=== PATIENT | female | born 1930 | race Caucasian/White ===

== ENCOUNTER 2021-07-09 08:47 | Outpatient (CLI) | payer MEDICARE, OTHER | END 2021-07-09 08:48 | disposition critical access hospital (66) | LOC: EMS 08:47 | DX: R41.0 Disorientation, unspecified (principal); R53.1 Weakness; S01.81XA Laceration without foreign body of other part of head, initial encounter; M54.2 Cervicalgia; W19.XXXA Unspecified fall, initial encounter; Y92.099 Unspecified place in other non-institutional residence as the place of occurrence of the external cause | CPT/HCPCS: A0425; A0429 ==

== ENCOUNTER 2021-07-09 09:07 | Emergency (ER) | payer MEDICARE, OTHER ==
[2021-07-09] MEDS ORDERED: SODIUM CHLORIDE 0.9% 1,000 ML IV STA (10:19)
--- NOTE | 2021-07-09 10:19 | ED Physician Documentation ---
PD HPI ALTERED MENTAL STATUS - Stated complaint Stated Complaint: DEMENTIA/CONFUSION - Chief complaint Chief Complaint: Neuro - History obtained from History obtained from: Patient, Family - History of Present Illness Timing - onset: How many days ago (2) Timing - duration: Days (2) Timing - details: Gradual onset, Still present Quality / character: Confused Associated symptoms: Urinary sx (frequency). No: Fever, Headache, Stiff neck, Dyspnea, Cough, NVD, General weakness, Focal weakness, Seizure activity, Syncope Contributing factors: Known dementia. 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 She is brought here today by her daughter from [facility] with increasing confusion. The patient does have known dementia and she lives in assisted living at [facility]. She has been taking some Lasix for lower extremity edema Review of Systems Constitutional: denies: Fever Eyes: denies: Decreased vision Ears: denies: Ear pain Nose: denies: Congestion Throat: denies: Sore throat Cardiac: denies: Chest pain / pressure, Palpitations Respiratory: denies: Dyspnea, Cough GI: denies: Abdominal Pain, Nausea, Vomiting, Constipation, Diarrhea : reports: Frequency. denies: Dysuria Skin: denies: Rash Musculoskeletal: denies: Neck pain, Back pain, Extremity pain Neurologic: reports: Confused. 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 : None Psych: None Musculoskeletal: None Derm: None Other Past Medical History: venous insufficiency - Present Medications Home Medications: Ambulatory Orders Medication Instructions Recorded Confirmed Furosemide [Lasix] 20 mg PO DAILY 07/09/21 07/09/21 Lisinopril [Zestril] 20 mg PO DAILY 07/09/21 07/09/21 Multivitamin 1 each PO DAILY 07/09/21 07/09/21 - Allergies Allergies/Adverse Reactions: Allergies Allergy/AdvReac Type Severity Reaction Status Date / Time No Known Drug Allergies Allergy Verified 07/09/21 09:15 - Social History Does the pt smoke?: No Smoking Status: Never smoker Does the pt drink ETOH?: No Does the pt have substance abuse?: No - Immunizations Immunizations are current?: Yes PD ED PE NORMAL - Vitals Vital signs reviewed: Yes (hypertensive with wide pulse pressure) - General General: No acute distress, Well developed/nourished, Other (alert smile and confused) - HEENT HEENT: Atraumatic, PERRL, EOMI - Neck Neck: Supple, no meningeal sign, No bony TTP - Cardiac Cardiac: RRR, Other (2/6 holosystolic murmer at LSB with loud second sound) - Respiratory Respiratory: No respiratory distress, Clear bilaterally - Abdomen Abdomen: Normal bowel sounds, Soft, Non tender, Non distended, No organomegaly - Back Back: No CVA TTP, No spinal TTP - Derm Derm: Normal color, Warm and dry, No rash - Extremities Extremities: No deformity, Other (pitting edema bilaterally ) - Neuro Neuro: magnetic resonance imaging director 2-12 intact, No motor deficit, No sensory deficit, Normal speech Eye Opening: Spontaneous Motor: Obeys Commands Verbal: Confused GCS Score: 14 - Psych Psych: Normal mood, Normal affect Results - Vitals Vitals: Vital Signs - 24 hr 07/09/21 07/09/21 07/09/21 09:15 10:00 11:00 Temperature 36.7 C Heart Rate 54 L 54 L 59 L Respiratory 19 18 16 Rate Blood Pressure 164/52 H 188/52 H 161/59 H O2 Saturation 98 100 100 07/09/21 11:50 Temperature 36.1 C L Heart Rate 49 L Respiratory 16 Rate Blood Pressure 157/62 H O2 Saturation 97 Oxygen O2 Source Room air - Labs Labs: Laboratory Tests 07/09/21 07/09/21 07/09/21 09:57 10:30 10:30 WBC 4.6 L RBC 3.78 L Hgb 12.0 Hct 35.6 L MCV 94.2 MCH 31.7 H MCHC 33.7 RDW 12.4 Plt Count 141 MPV 10.1 Neut # (Auto) 2.9 Lymph # (Auto) 1.1 L [place] # (Auto) 0.4 Eos # (Auto) 0.3 Baso # (Auto) 0.0 Absolute Nucleated RBC 0.00 Nucleated RBC % 0.0 Sodium 137 Potassium 4.2 Chloride 101 Carbon Dioxide 27 Anion Gap 9.0 BUN 44 H Creatinine 1.3 H Estimated GFR (MDRD) 39 L Glucose 115 H Calcium 9.7 Total Bilirubin 0.7 AST 18 ALT 16 Alkaline Phosphatase 40 L B-Natriuretic Peptide Total Protein 6.9 Albumin 4.3 Globulin 2.6 Albumin/Globulin Ratio 1.7 Lipase 52 H Urine Color YELLOW Urine Clarity CLEAR Urine pH 6.0 Ur Specific [place] 1.020 Urine Protein NEGATIVE Urine Glucose (UA) NEGATIVE Urine Ketones NEGATIVE Urine Occult Blood NEGATIVE Urine Nitrite NEGATIVE Urine Bilirubin NEGATIVE Urine Urobilinogen 0.2 (NORMAL) Ur Leukocyte Esterase SMALL H Urine RBC 0-5 Urine WBC 4-5 Ur Squamous Epith Cells FEW Squamous Amorphous Sediment Rare Urine Bacteria Rare Ur Microscopic Review INDICATED Urine Culture Comments INDICATED 07/09/21 10:30 WBC RBC Hgb Hct MCV MCH MCHC RDW Plt Count MPV Neut # (Auto) Lymph # (Auto) [place] # (Auto) Eos # (Auto) Baso # (Auto) Absolute Nucleated RBC Nucleated RBC % Sodium Potassium Chloride Carbon Dioxide Anion Gap BUN Creatinine Estimated GFR (MDRD) Glucose Calcium Total Bilirubin AST ALT Alkaline Phosphatase B-Natriuretic Peptide 124 H Total Protein Albumin Globulin Albumin/Globulin Ratio Lipase Urine Color Urine Clarity Urine pH Ur Specific [place] Urine Protein Urine Glucose (UA) Urine Ketones Urine Occult Blood Urine Nitrite Urine Bilirubin Urine Urobilinogen Ur Leukocyte Esterase Urine RBC Urine WBC Ur Squamous Epith Cells Amorphous Sediment Urine Bacteria Ur Microscopic Review Urine Culture Comments Procedures - IVC sono (time) 1015 Bedside IVC sono: IVC measures (cm) (1.01), IVC collapsed c insp (cm) (complete), Dehydration (est 1-2 liter deficit) PD MEDICAL DECISION MAKING - ED course Complexity details: reviewed results, re-evaluated patient, considered differential, d/w patient, d/w family ED course: 89-year-old female who has not had to go to the hospital since the of her child is on some medication for fluid retention in her ankles. She has been taking furosemide and she is now feeling weak and confused. She otherwise appears well and we found on interrogation the inferior vena cava that she was dehydrated. She was administered intravenous saline. I have asked the patient to decrease her use of the furosemide for the next 2 days and then to resume. We found no other abnormalities on evaluation of the patient.I suspect her peripheral swelling is a form of fluid retention or dependent edema and not related to congestive heart failure. Departure - Departure Disposition: 01 Home, Self Care Clinical Impression: Dehydration determined by examination Condition: Stable Instructions: ED Dehydration Follow-Up: Salvador Wiley MD [Primary Care Provider] - Comments: Rosa Maria, today it looks like the Lasix you have been taking has made you a bit dehydrated. We have given you a bit of extra fluid today and our recommendation is to discontinue the use of your furosemide for 2 days. Stay hydrated.The expectation is that over the next several days Rosa Maria will have improvement in her cognitive ability to her normal baseline. Discharge Date/Time: 07/09/21 12:17
[2021-07-09 10:30] LABS: BILIRUBIN,URINE NEGATIVE (NEGATIVE); GLUCOSE, URINE (UA) NEGATIVE (NEGATIVE); KETONES,URINE (UA) NEGATIVE (NEGATIVE); LEUKOCYTE ESTERASE, URINE SMALL (NEGATIVE); NITRITE,URINE NEGATIVE (NEGATIVE); OCCULT BLOOD,URINE NEGATIVE (NEGATIVE); PROTEIN,URINE NEGATIVE (NEGATIVE); UROBILINOGEN,URINE 0.2 (NORMAL) E.U./dL (NORMAL)
[2021-07-09 10:40] LABS: CLARITY,URINE CLEAR (CLEAR)
[2021-07-09 10:41] LABS: BASOPHILS % (AUTO) 0.7 %; EOSINOPHILS # (AUTO) 0.3 10^3/uL (0.0-0.7); EOSINOPHILS % (AUTO) 5.7 %; HCT - HEMATOCRIT 35.6 % (37.0-47.0); LYMPHOCYTES # (AUTO) 1.1 10^3/uL (1.5-3.5); LYMPHOCYTES % (AUTO) 22.8 %; MEAN CORPUSCULAR HEMOGLOBIN 31.7 pg (27.0-31.0); MEAN CORPUSCULAR HGB CONC 33.7 g/dL (32.0-36.0); MEAN CORPUSCULAR VOLUME 94.2 fL (81.0-99.0); MEAN PLATELET VOLUME 10.1 fL (7.9-10.8); MONOCYTES # (AUTO) 0.4 10^3/uL (0.0-1.0); MONOCYTES % (AUTO) 7.6 %; NEUTROPHILS # (AUTO) 2.9 10^3/uL (1.5-6.6); PLT - PLATELET COUNT 141 10^3/uL (130-450); RED BLOOD COUNT 3.78 10^6/uL (4.20-5.40); RED CELL DISTRIBUTION WIDTH 12.4 % (12.0-15.0); WHITE BLOOD COUNT 4.6 x10^3/uL (4.8-10.8)
[2021-07-09 10:41] LABS: AMORPHOUS SEDIMENT,UR Rare /LPF; BACTERIA,URINE Rare /HPF (None Seen); RBC,URINE 0-5 /HPF (0-5); SQUAMOUS EPITHELIAL CELL,UR FEW Squamous (<= Few)
[2021-07-09 10:54] LABS: ALBUMIN 4.3 g/dL (3.2-5.5); ALBUMIN/GLOBULIN RATIO 1.7 (1.0-2.2); BILIRUBIN,TOTAL 0.7 mg/dL (0.2-1.0); CALCIUM 9.7 mg/dL (8.5-10.3); CREATININE 1.3 mg/dL (0.4-1.0); POTASSIUM 4.2 mmol/L (3.5-5.0); TOTAL PROTEIN 6.9 g/dL (6.7-8.2)
[2021-07-09 11:53] VITALS: BP 157/62
== END 2021-07-09 12:17 | disposition home or self-care (01) ==
LOC: EDUNIT# → ED 09:07
DX: E86.0 Dehydration (principal)
CPT/HCPCS: 36415; 80053; 81001; 81003; 83690; 83880; 85025; 87086; 87181; 96360; 99282

== ENCOUNTER 2021-07-09 17:40 | Outpatient (CLI) | payer MEDICARE, OTHER | END 2021-07-09 17:41 | disposition critical access hospital (66) | LOC: EMS 17:40 | DX: S01.81XA Laceration without foreign body of other part of head, initial encounter (principal); M54.2 Cervicalgia; W19.XXXA Unspecified fall, initial encounter; Y92.099 Unspecified place in other non-institutional residence as the place of occurrence of the external cause | CPT/HCPCS: A0425; A0429 ==

== ENCOUNTER 2021-07-09 17:58 | Emergency (ER) | payer MEDICARE, OTHER ==
[2021-07-09] MEDS ORDERED: LIDOCAINE 1%-EPI 1:100000 20 ML MDV SUBQ STA (18:05)
[2021-07-09] MEDS ORDERED: TETANUS/DIPHTHERIA/PERTUSSIS 0.5 ML SYRINGE IM ONE (18:05)
--- NOTE | 2021-07-09 18:09 | ED Physician Documentation ---
History of Present Illness - Stated complaint Stated Complaint: GLF/LACERATION - History obtained from History obtained from: Patient, EMS - Additonal information Additional information: 89-year-old woman with dementia seen earlier in the day. She was acting more confused than normal. Sent home after labs and IV fluids. Fell and hit the back of her head and has a cut on the back of her head and brought back by ambulance. Patient quite demented and unable to give specific history. No clear loss of consciousness. 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 : None Psych: None Musculoskeletal: None Derm: None - Present Medications Home Medications: Ambulatory Orders Medication Instructions Recorded Confirmed Furosemide [Lasix] 20 mg PO DAILY 07/09/21 07/09/21 Lisinopril [Zestril] 20 mg PO DAILY 07/09/21 07/09/21 Multivitamin 1 each PO DAILY 07/09/21 07/09/21 - Allergies Allergies/Adverse Reactions: Allergies Allergy/AdvReac Type Severity Reaction Status Date / Time No Known Drug Allergies Allergy Verified 07/09/21 18:08 - Social History Does the pt smoke?: No Smoking Status: Never smoker Does the pt drink ETOH?: No Does the pt have substance abuse?: No - Immunizations Immunizations are current?: Yes PD ED PE NORMAL - Vitals Vital signs reviewed: Yes - General General: No acute distress, Other (Alert and oriented to person only) - HEENT HEENT: PERRL, EOMI, Other (4 cm horizontal occipital laceration) - Neck Neck: No bony TTP - Neuro Eye Opening: Spontaneous Motor: Obeys Commands Verbal: Confused GCS Score: 14 Results - Vitals Vitals: Vital Signs - 24 hr 07/09/21 18:08 Temperature 36.7 C Heart Rate 53 L Respiratory 16 Rate Blood Pressure 148/50 H O2 Saturation 96 Oxygen O2 Source Room air - Rads (name of study) CT of the head and cervical spine are unremarkable Radiology: EMP read contemporaneously Procedures - Laceration (location) Occipital scalp Length in cm: 4 Wound type: Into subcut fat Neurovascular status: Sensory intact, Motor intact Tendon involvement: Tendon intact Anesthesia: Lidocaine 1% with epi Wound preparation: Irrigated copiously NS Skin layer closure: Vincenzo (7) Other: Patient tolerated well, No complications, Neurovascular intact, Tetanus booster given Departure - Departure Disposition: 01 Home, Self Care Clinical Impression: Fall from ground level Scalp laceration Qualifiers: Encounter type: initial encounter Qualified Code(s): S01.01XA - Laceration without foreign body of scalp, initial encounter Dementia Qualifiers: Dementia type: unspecified type Dementia behavioral disturbance: with behavioral disturbance Qualified Code(s): F03.91 - Unspecified dementia with behavioral disturbance Condition: Good Record reviewed to determine appropriate education?: Yes Instructions: ED Laceration Scalp Stitch Or Stap Comments: Come back for any signs of infection which would include: Redness, swelling, drainage, increased pain, or fevers. Follow-up with your physician in About 7-10 days for suture removal.
--- NOTE | 2021-07-09 19:06 | CT Report ---
PROCEDURE: HEAD WO INDICATIONS: head injury TECHNIQUE: Noncontrast 4.5 mm thick angled axial sections acquired from the foramen magnum to the vertex. For r adiation dose reduction, the following was used: automated exposure control, adjustment of mA and/or kV according to patient size. COMPARISON: None. FINDINGS: Image quality: Fair. CSF spaces: Basal cisterns are patent. No extra-axial fluid collections. Ventricles are normal in size and shape. Brain: No midline shift. No intracranial masses or hemorrhage. Molina-white matter interface is with in normal limits. Skull and face: Calvarium and visualized facial bones are intact, without suspicious lesions. Sinuses: Visualized sinuses and mastoids are clear. IMPRESSION: No acute intracranial abnormality. Reviewed by: Aime Howe MD on 07/09/2021 6:05 PM DEIDRE Approved by: Aime Howe MD on 07/09/2021 6:05 PM DEIDRE Station ID: [id number]
--- NOTE | 2021-07-09 19:08 | CT Report ---
PROCEDURE: CERVICAL SPINE WO INDICATIONS: head injury TECHNIQUE: Noncontrast 3 mm thick sections acquired from the skull base to the T4 level. Sagittal and coronal r eformats were then constructed. For radiation dose reduction, the following was used: automated exp osure control, adjustment of mA and/or kV according to patient size. COMPARISON: None. FINDINGS: Image quality: Excellent. Bones: No fractures or dislocations. Moderate to severe degenerative change. Visualized superior rib s are intact. Soft tissues: Prevertebral soft tissues are normal in thickness. No paravertebral hematomas. No ap ical pneumothoraces. IMPRESSION: No acute osseous abnormality. Reviewed by: Aime Howe MD on 07/09/2021 6:07 PM DEIDRE Approved by: Aime Howe MD on 07/09/2021 6:07 PM AKDOMINGO Station ID: [id number]
[2021-07-09 19:25] VITALS: BP 139/50
== END 2021-07-09 19:44 | disposition home or self-care (01) ==
LOC: EDUNIT# → ED 17:58
DX: S01.01XA Laceration without foreign body of scalp, initial encounter (principal); F03.91 Unspecified dementia, unspecified severity, with behavioral disturbance; W18.30XA Fall on same level, unspecified, initial encounter; E86.0 Dehydration; R35.0 Frequency of micturition; R60.0 Localized edema
CPT/HCPCS: 12013; 36415; 80053; 81001; 81003; 83690; 83880; 85025; 87086; 87181; 96360; 99281; 99282; 99284

== ENCOUNTER 2021-10-28 09:24 | Emergency (ER) | payer MEDICARE, OTHER ==
[2021-10-28 09:39] VITALS: BP 150/69
--- NOTE | 2021-10-28 10:09 | CT Report ---
PROCEDURE: CERVICAL SPINE WO INDICATIONS: fall/pain TECHNIQUE: Noncontrast 3 mm thick sections acquired from the skull base to the T4 level. Sagittal and coronal r eformats were then constructed. For radiation dose reduction, the following was used: automated exp osure control, adjustment of mA and/or kV according to patient size. COMPARISON: 07/09/2021. FINDINGS: Image quality: Excellent. Bones: No fractures or dislocations. Visualized superior ribs are intact. There are multilevel deg enerative changes. Soft tissues: Prevertebral soft tissues are normal in thickness. No paravertebral hematomas. No ap ical pneumothoraces. IMPRESSION: 1. No acute traumatic abnormality of the cervical spine. 2. Multilevel degenerative changes of the cervical spine. Reviewed by: Bryant Blackman on 10/28/2021 9:07 AM DEIDRE Approved by: Bryant Blackman on 10/28/2021 9:07 AM DEIDRE Station ID: [id number]
--- NOTE | 2021-10-28 10:14 | CT Report ---
PROCEDURE: HEAD WO INDICATIONS: GLF/hit head/?LOC TECHNIQUE: Noncontrast 4.5 mm thick angled axial sections acquired from the foramen magnum to the vertex. For r adiation dose reduction, the following was used: automated exposure control, adjustment of mA and/or kV according to patient size. COMPARISON: 07/09/2021. FINDINGS: Image quality: Excellent. CSF spaces: Basal cisterns are patent. No extra-axial fluid collections. Ventricles are normal in size and shape. Brain: No midline shift. No intracranial masses or hemorrhage. In the axial images there is a righ t frontal 4 mm subcortical hyperdensity, however on sagittal and coronal images this is likely a refl ection of cortex. Molina-white matter interface is normal. Subcortical and periventricular hypodensitie s are consistent with microvascular ischemic disease and age-related cerebral volume loss. Skull and face: Calvarium and visualized facial bones are intact, without suspicious lesions. Sinuses: Visualized sinuses and mastoids are clear. IMPRESSION: 1. No acute intracranial abnormality. 2. Microvascular ischemic disease and age-related cerebral volume loss. Reviewed by: Bryant Blackman on 10/28/2021 9:13 AM DEIDRE Approved by: Bryant Blackman on 10/28/2021 9:13 AM DEIDRE Station ID: [id number]
--- NOTE | 2021-10-28 10:36 | ED Physician Documentation ---
History of Present Illness - Stated complaint Stated Complaint: GLF/ NECK/BACK PX - Chief complaint Chief Complaint: Trauma Hd/Nk - History obtained from History obtained from: Patient, EMS - Additonal information Additional information: The patient is brought to the emergency department by EMS for chief complaint of fall at her assisted living facility. Patient had a ground-level fall this morning and apparently fell backwards. She is complaining of neck and low back pain, and was noted to have an abrasion on her left forehead. Unknown loss of consciousness. The patient denies any complaints at this time, other than the blood pressure cuff squeezing her arm. She was sent in "as a precaution" according to medics at her facility's request. The patient has a history of moderate dementia, but generally is able to live and care for herself in an apartment at the facility with occasional check ins by staff. Review of Systems Ten Systems: 10 systems reviewed and negative Constitutional: reports: Reviewed and negative Eyes: reports: Reviewed and negative Ears: reports: Reviewed and negative Nose: reports: Reviewed and negative Throat: reports: Reviewed and negative Cardiac: reports: Reviewed and negative Respiratory: reports: Reviewed and negative GI: reports: Reviewed and negative : reports: Reviewed and negative Skin: reports: Reviewed and negative Musculoskeletal: reports: Reviewed and negative Neurologic: reports: Reviewed and negative Psychiatric: reports: Reviewed and negative Endocrine: reports: Reviewed and negative Immunocompromised: reports: Reviewed and negative PD PAST MEDICAL HISTORY - Past Medical History Cardiovascular: Hypertension, Other Respiratory: None Neuro: Dementia Endocrine/Autoimmune: None GI: None 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 : None HEENT: None Psych: None Musculoskeletal: None Derm: None - Past Surgical History Past Surgical History: Yes - Present Medications Home Medications: Ambulatory Orders Medication Instructions Recorded Confirmed Furosemide [Lasix] 20 mg PO DAILY 07/09/21 10/28/21 Lisinopril [Zestril] 20 mg PO DAILY 07/09/21 10/28/21 Multivitamin 1 each PO DAILY 07/09/21 10/28/21 - Allergies Allergies/Adverse Reactions: Allergies Allergy/AdvReac Type Severity Reaction Status Date / Time No Known Drug Allergies Allergy Verified 07/09/21 18:08 - Social History Does the pt smoke?: No Smoking Status: Never smoker Does the pt drink ETOH?: No Does the pt have substance abuse?: No - Immunizations Immunizations are current?: Yes PD ED PE NORMAL - Vitals Vital signs reviewed: Yes - General General: No acute distress, Well developed/nourished, Other (Alert and oriented to self. She knows she is at the hospital.) - HEENT HEENT: PERRL, EOMI, Moist mucous membranes, Other (Small abrasion without edema or contusion over left lateral forehead. No other head or facial trauma) - Neck Neck: No bony TTP - Cardiac Cardiac: RRR, No murmur - Respiratory Respiratory: No respiratory distress, Clear bilaterally - Abdomen Abdomen: Soft, Non tender, Non distended - Derm Derm: Normal color, Warm and dry, No rash - Extremities Extremities: No deformity, No edema - Neuro Neuro: stem assembler 2-12 intact, Normal speech, Other (Alert, oriented to self and "hospital") - Psych Psych: Normal mood, Normal affect Results - Vitals Vitals: Oxygen O2 Source Room air - Rads (name of study) CT head Radiology: Final report received, EMP read indepedently, See rad report (NAD) CT cervical spine Radiology: Final report received, EMP read indepedently, See rad report (DJD, o/w nad) PD MEDICAL DECISION MAKING - ED course Complexity details: reviewed results, re-evaluated patient, considered differential, d/w patient, d/w family ED course: CT scans of head and neck were negative. I discussed the results with daughter, who agreed to take the pt back to her [facility]. Departure - Departure Disposition: 01 Home, Self Care Clinical Impression: Fall from ground level Closed head injury Qualifiers: Encounter type: initial encounter Qualified Code(s): S09.90XA - Unspecified injury of head, initial encounter Condition: Stable Instructions: ED Head Injury Closed, ED Sprain Strain Neck Comments: The CT scans look good. There is no evidence of bleeding in the brain or injury to the spine. Discharge Date/Time: 10/28/21 10:39
== END 2021-10-28 10:39 | disposition home or self-care (01) ==
LOC: EDUNIT# → ED 09:24
DX: S00.81XA Abrasion of other part of head, initial encounter (principal); S09.90XA Unspecified injury of head, initial encounter; W18.30XA Fall on same level, unspecified, initial encounter; Y92.199 Unspecified place in other specified residential institution as the place of occurrence of the external cause
CPT/HCPCS: 99282; 99284

== ENCOUNTER 2021-12-31 10:02 | Outpatient (CLI) | payer MEDICARE, OTHER | END 2021-12-31 10:03 | disposition critical access hospital (66) | LOC: EMS 10:02 | DX: M54.6 Pain in thoracic spine (principal); W19.XXXA Unspecified fall, initial encounter; Y92.092 Bedroom in other non-institutional residence as the place of occurrence of the external cause | CPT/HCPCS: A0425; A0429 ==

== ENCOUNTER 2021-12-31 10:20 | Emergency (ER) | payer MEDICARE, OTHER ==
--- OUTSIDE RECORDS SUMMARY | 2021-12-31 10:28 | EXTERNAL MEDICAL SUMMARY RPT | Continuity of Care Document ---
:1930 Author Organization [facility] Address [address] [place] [address] Phone Allergies and Intolerances date description facility type (no date) No Known Drug Allergies [facility] (unkn own) Encounters No information. Functional Status No information. Immunizations No information. Medications No information. Problems No information. Procedures No information. Results/Labs test date author facility value unit interpret ation Result panel 1 (unknown) (no (unknown) (unknown) [address] [place] [address] (units (unknown) date) unknown) (unknown) (no (unknown) (unknown) [place], [place] (units ( unknown) date) [id number] unknown) (unknown) (no (unknown) (unknown) Echocardiography (units (unknown) date) Report unknown) (unknown) (no (unknown) (unknown) [facility] (units (unknown) date) unknown) (unknown) (no (unknown) (unknown) Signed (units (unkno wn) date) unknown) (unknown) (no (unknown) (unknown) (no value) (units (unk nown) date) unknown) (unknown) (no (unknown) (unknown) 12/05/21 (units (unkno wn) date) unknown) (unknown) (no (unknown) (unknown) + (units (unknown) date) unknown) ---+ (unknown) (no (unknown) (unknown) [id number] (units (unkno wn) date) unknown) (unknown) (no (unknown) (unknown) :Account #: (units (un known) date) [id number] Gender: unknown) Female BSA: 1.7 m2 : (unknown) (no (unknown) (unknown) :: 1930 (units (unknown) date) Age: 89 yrs BP: unknown) 185/74 mmHg: (unknown) (no (unknown) (unknown) :ALE Performed (units (unknown) date) By: Madan unknown) Julián : (unknown) (no (unknown) (unknown) :Ordering (units (unkn own) date) Physician: PITO, : unknown) (unknown) (no (unknown) (unknown) :Reason For Study: (units (unknown) date) Edema : unknown) (unknown) (no (unknown) (unknown) :Referring: PITO, (units (unknown) date) ALE : unknown) (unknown) (no (unknown) (unknown) sev ratio: 0.96 (units (unknown) date) unknown) (unknown) (no (unknown) (unknown) Accession Number: (units (unknown) date) [id number] unknown) (unknown) (no (unknown) (unknown) Age/Sex: 89 / F (units (unknown) date) Date of Service: unknown) (unknown) (no (unknown) (unknown) Ao V2 VTI: 35.1 cm (units (unknown) date) ALESSANDRA(V,D): 3.3 cm2 unknown) (unknown) (no (unknown) (unknown) Ao V2 max: 134.2 (units (unknown) date) cm/sec LVOT Max unknown) Star: 128.8 cm/sec (unknown) (no (unknown) (unknown) Ao V2 mean: 101.4 (units (unknown) date) cm/sec LV V1 max unknown) P.6 mmHg (unknown) (no (unknown) (unknown) Ao max P.2 (units (unknown) date) mmHg LV V1 VTI: unknown) 33.8 cm (unknown) (no (unknown) (unknown) Ao mean P.4 (units (unknown) date) mmHg ALESSANDRA(I,D): 3.3 unknown) cm2 (unknown) (no (unknown) (unknown) Aortic Valve: (units ( unknown) date) There is mild unknown) aortic valve sclerosis. No aortic regurgitation (unknown) (no (unknown) (unknown) Atria: The left (units (unknown) date) atrium is severely unknown) dilated. The right atrium is moderately (unknown) (no (unknown) (unknown) Atrial (units (unkno wn) date) fibrillation with unknown) controlled ventricular response (unknown) (no (unknown) (unknown) : 1930 (units (unknown) date) Acct:[id number] unknown) (unknown) (no (unknown) (unknown) Diastolic function (units (unknown) date) could not be unknown) accurately assessed due to atrial (unknown) (no (unknown) (unknown) Doppler (units (unkno wn) date) Measurements + unknown) Calculations (unknown) (no (unknown) (unknown) E/E' med: 18.3 (units (unknown) date) unknown) (unknown) (no (unknown) (unknown) Electronically (units (unknown) date) signed by: Perez octto) Venkat on 12/06/2021 09:50 (unknown) (no (unknown) (unknown) FS: 38.4 % asc (units (unknown) date) Aorta Diam: 3.4 cm unknown) (unknown) (no (unknown) (unknown) GenericComposite[A (units (unknown) date) VA indexed to BSA unknown) (cm^2/m^2): 1.9 ] (unknown) (no (unknown) (unknown) GenericComposite[L (units (unknown) date) V ferguson. unknown) diameter/BSA (cm/m^2): 2.7 ] (unknown) (no (unknown) (unknown) GenericComposite[L (units (unknown) date) V sys. diameter/BSA unknown) (cm/m^2): 1.7 ] (unknown) (no (unknown) (unknown) Great Vessels: The (units (unknown) date) aortic root is unknown) normal size. The dimensions of the (unknown) (no (unknown) (unknown) Hypertensive (units (u nknown) date) during examination unknown) (unknown) (no (unknown) (unknown) Hypertensive (units (u nknown) date) during examination. unknown) (unknown) (no (unknown) (unknown) IVSd: 0.98 cm (units ( unknown) date) unknown) (unknown) (no (unknown) (unknown) Interpretation (units (unknown) date) Summary unknown) (unknown) (no (unknown) (unknown) LA A2 area: 24.1 (units (unknown) date) cm2 RA long axis: unknown) 5.4 cm (unknown) (no (unknown) (unknown) LA A4 area: 24.0 (units (unknown) date) cm2 RA area: 17.9 unknown) cm2 (unknown) (no (unknown) (unknown) LA length (vol): (units (unknown) date) 5.6 cm RA vol: 50.1 unknown) ml (unknown) (no (unknown) (unknown) LA vol index: 50.2 (units (unknown) date) ml/m2 IVC diam: 2.3 unknown) cm (unknown) (no (unknown) (unknown) LA vol: 87.3 ml RA (units (unknown) date) : 28.8 ml/m2 unknown) (unknown) (no (unknown) (unknown) LVIDd: 4.7 cm LVOT (units (unknown) date) diam: 2.1 cm unknown) (unknown) (no (unknown) (unknown) LVIDs: 2.9 cm Ao (units (unknown) date) root diam: 3.1 cm unknown) (unknown) (no (unknown) (unknown) LVPWd: 0.95 cm (units (unknown) date) unknown) (unknown) (no (unknown) (unknown) Left Ventricle: (units (unknown) date) The left ventricle unknown) is normal in size and wall thickness. (unknown) (no (unknown) (unknown) Left ventricular (units (unknown) date) systolic function unknown) is normal. (unknown) (no (unknown) (unknown) Left ventricular (units (unknown) date) systolic function unknown) is normal. The ejection fraction is (unknown) (no (unknown) (unknown) Loc: ECHO (units (unkn own) date) unknown) (unknown) (no (unknown) (unknown) MMode/2D (units (unkno wn) date) Measurements + unknown) Calculations (unknown) (no (unknown) (unknown) MV A max star: 99.8 (units (unknown) date) cm/sec TR max PG: unknown) 28.7 mmHg (unknown) (no (unknown) (unknown) MV E max star: (units ( unknown) date) 106.4 cm/sec TR max unknown) star: 267.9 cm/sec (unknown) (no (unknown) (unknown) MV E/A: 1.1 (units (un known) date) unknown) (unknown) (no (unknown) (unknown) MV dec time: 0.20 (units (unknown) date) sec unknown) (unknown) (no (unknown) (unknown) Med Peak E' Star: (units (unknown) date) 5.8 cm/sec unknown) (unknown) (no (unknown) (unknown) Mitral Valve: The (units (unknown) date) mitral valve unknown) leaflets are mildly calcified. There is mild (unknown) (no (unknown) (unknown) No prior study for (units (unknown) date) comparison. unknown) (unknown) (no (unknown) (unknown) Ordering Provider: (units (unknown) date) lAe Quintero unknown) (unknown) (no (unknown) (unknown) Patient: (units (unkno wn) date) Rosa Maria Godfrey unknown) MR#: [id number] (unknown) (no (unknown) (unknown) Pericardium/ (units (u nknown) date) Pleura There is no unknown) pericardial effusion. There is no pleural (unknown) (no (unknown) (unknown) Procedure: A (units (u nknown) date) two-dimensional unknown) transthoracic echocardiogram with color flow (unknown) (no (unknown) (unknown) Procedure: EC echo (units (unknown) date) doppler complete unknown) (unknown) (no (unknown) (unknown) Pulmonic Valve: (units (unknown) date) The pulmonic valve unknown) is normal in structure and function. (unknown) (no (unknown) (unknown) Reading (units (unkno wn) date) Physician:AM unknown) (unknown) (no (unknown) (unknown) Right Ventricle: (units (unknown) date) The right ventricle unknown) is normal in size and function. (unknown) (no (unknown) (unknown) SV(LVOT): 114.7 ml (units (unknown) date) unknown) (unknown) (no (unknown) (unknown) TAPSE: 2.2 cm (units ( unknown) date) unknown) (unknown) (no (unknown) (unknown) The ejection (units (u nknown) date) fraction is unknown) estimated to be 60-65%. (unknown) (no (unknown) (unknown) The left atrium is (units (unknown) date) severely dilated. unknown) (unknown) (no (unknown) (unknown) The left ventricle (units (unknown) date) is normal in size unknown) and wall thickness. (unknown) (no (unknown) (unknown) The right (units (unkn own) date) ventricular unknown) systolic pressure is estimated to be at least 37 mmHg (unknown) (no (unknown) (unknown) There is a trace (units (unknown) date) or physiologic unknown) amount of pulmonic regurgitation. (unknown) (no (unknown) (unknown) There is mild (units ( unknown) date) mitral unknown) regurgitation. (unknown) (no (unknown) (unknown) There is mild (units ( unknown) date) tricuspid unknown) regurgitation. (unknown) (no (unknown) (unknown) Tricuspid Valve: (units (unknown) date) The tricuspid valve unknown) is normal in structure and function. (unknown) (no (unknown) (unknown) (units (unknown) date) unknown) ___ (unknown) (no (unknown) (unknown) and Doppler was (units (unknown) date) performed. There is unknown) no prior echocardiogram noted for this (unknown) (no (unknown) (unknown) ascending aorta (units (unknown) date) are normal. The IVC unknown) is dilated (diameter is greater than 2.1 (unknown) (no (unknown) (unknown) atrial pressure of (units (unknown) date) 8 mm Hg. unknown) (unknown) (no (unknown) (unknown) based on an (units (un known) date) estimated right unknown) atrial pressure of 8 mm Hg. (unknown) (no (unknown) (unknown) based on an (units (un known) date) estimated right unknown) atrial pressure of 8 mm Hg. There is mild (unknown) (no (unknown) (unknown) cm) yet it (units (unk nown) date) collapses greater unknown) than 50% with a sniff. This suggests a right (unknown) (no (unknown) (unknown) controlled (units (unk nown) date) ventricular unknown) response (unknown) (no (unknown) (unknown) dilated. The (units (u nknown) date) interatrial septum unknown) grossly appears intact with no obvious (unknown) (no (unknown) (unknown) effusion. (units (unkn own) date) unknown) (unknown) (no (unknown) (unknown) estimated to be (units (unknown) date) 60-65%. There are unknown) no focal wall motion abnormalities. (unknown) (no (unknown) (unknown) evidence for an (units (unknown) date) atrial septal unknown) defect. (unknown) (no (unknown) (unknown) fibrillation. (units ( unknown) date) unknown) (unknown) (no (unknown) (unknown) is present. (units (un known) date) unknown) (unknown) (no (unknown) (unknown) mitral annular (units (unknown) date) calcification. unknown) There is mild mitral regurgitation. (unknown) (no (unknown) (unknown) patient. The study (units (unknown) date) quality was unknown) technically adequate. Atrial fibrillation with (unknown) (no (unknown) (unknown) tricuspid (units (unkn own) date) regurgitation. unknown) Result panel 2 (unknown) (no (unknown) (unknown) (no value) (units (unk nown) date) unknown) (unknown) (no (unknown) (unknown) [address] [place] [address] (units (unknown) date) unknown) (unknown) (no (unknown) (unknown) [place], [place] (units ( unknown) date) [id number] unknown) (unknown) (no (unknown) (unknown) CT Scan Report (units (unknown) date) unknown) (unknown) (no (unknown) (unknown) [facility] (units (unknown) date) unknown) (unknown) (no (unknown) (unknown) Signed (units (unkno wn) date) unknown) (unknown) (no (unknown) (unknown) XRay Report (units (un known) date) unknown) (unknown) (no (unknown) (unknown) (no value) (units (unk nown) date) unknown) (unknown) (no (unknown) (unknown) 12/14/21 (units (unkno wn) date) unknown) (unknown) (no (unknown) (unknown) 1. Multilevel (units ( unknown) date) degenerative disc unknown) disease and arthropathy without fracture or (unknown) (no (unknown) (unknown) Approved by: Amando (units (unknown) date) Agus Queen on unknown) 12/14/2021 at 11:16 (unknown) (no (unknown) (unknown) Approved by: Amando (units (unknown) date) Agus Queen on unknown) 12/14/2021 at 11:22 (unknown) (no (unknown) (unknown) Approved by: Amando (units (unknown) date) Agus Queen on unknown) 12/14/2021 at 17:20 (unknown) (no (unknown) (unknown) Atrophy and (units (un known) date) chronic ischemic unknown) change without acute hemorrhage or mass effect (unknown) (no (unknown) (unknown) Bones: No (units (unk nown) date) fractures or unknown) dislocations. No suspicious bony lesions. The (unknown) (no (unknown) (unknown) Bones: No (units (unk nown) date) fractures or unknown) dislocations. Visualized superior ribs are intact. (unknown) (no (unknown) (unknown) Brain: No (units (unk nown) date) midline shift. No unknown) intracranial masses or hemorrhage. Molina-white (unknown) (no (unknown) (unknown) COMPARISON: (units (un known) date) [facility], unknown) CT, CT PEL WO CON, 12/14/2021, 11:46. (unknown) (no (unknown) (unknown) COMPARISON: (units (un known) date) None. unknown) (unknown) (no (unknown) (unknown) CSF spaces: (units (un known) date) Basal cisterns are unknown) patent. No extra-axial fluid collections. (unknown) (no (unknown) (unknown) Degenerative (units (u nknown) date) changes lower unknown) lumbar spine and bilateral hips. (unknown) (no (unknown) (unknown) FINDINGS: (units (unkn own) date) unknown) (unknown) (no (unknown) (unknown) FINDINGS: (units (unkn own) date) unknown) (unknown) (no (unknown) (unknown) IMPRESSION: (units (un known) date) unknown) (unknown) (no (unknown) (unknown) INDICATIONS: (units (u nknown) date) fall, dementia, unknown) distracting injury (unknown) (no (unknown) (unknown) INDICATIONS: (units (u nknown) date) fall, distracting unknown) injury, dementia (unknown) (no (unknown) (unknown) INDICATIONS: (units (u nknown) date) fall, left hip unknown) pain, shortening (unknown) (no (unknown) (unknown) Image quality: (units (unknown) date) Excellent. unknown) (unknown) (no (unknown) (unknown) Multilevel (units (unk nown) date) degenerative disc unknown) space narrowing and arthropathy in the mid to (unknown) (no (unknown) (unknown) No evidence of (units (unknown) date) hip fracture. unknown) (unknown) (no (unknown) (unknown) Noncontrast 3 mm (units (unknown) date) thick sections unknown) acquired from the skull base to the T4 level. (unknown) (no (unknown) (unknown) Noncontrast 4.5 (units (unknown) date) mm thick angled unknown) axial sections acquired from the foramen magnum (unknown) (no (unknown) (unknown) Sinuses: (units (unkno wn) date) Visualized sinuses unknown) and mastoids are clear. (unknown) (no (unknown) (unknown) Skull and face: (units (unknown) date) Calvarium and unknown) visualized facial bones are intact, without (unknown) (no (unknown) (unknown) Soft tissues: No (units (unknown) date) suspicious soft unknown) tissue calcifications or masses. (unknown) (no (unknown) (unknown) Soft tissues: (units ( unknown) date) Prevertebral soft unknown) tissues are normal in thickness. No (unknown) (no (unknown) (unknown) TECHNIQUE: (units (unk nown) date) unknown) (unknown) (no (unknown) (unknown) TECHNIQUE: 2 (units ( unknown) date) views of the hip unknown) were acquired. (unknown) (no (unknown) (unknown) and C6-7 (units (unkno wn) date) unknown) (unknown) (no (unknown) (unknown) and coronal (units (un known) date) reformats were unknown) then constructed. For radiation dose reduction, the (unknown) (no (unknown) (unknown) are normal in (units ( unknown) date) size and shape. unknown) (unknown) (no (unknown) (unknown) hematomas. No (units (unknown) date) apical unknown) pneumothoraces. (unknown) (no (unknown) (unknown) interface is (units (u nknown) date) normal. Moderate unknown) cerebral and cerebellar volume loss with (unknown) (no (unknown) (unknown) lesions. (units (unkno wn) date) Bilateral unknown) intraocular lens replacements noted. (unknown) (no (unknown) (unknown) malalignment (units (u nknown) date) unknown) (unknown) (no (unknown) (unknown) matter chronic (units (unknown) date) ischemic change unknown) noted. Atherosclerotic calcification noted (unknown) (no (unknown) (unknown) ring appears (units (u nknown) date) intact. Moderate unknown) joint space narrowing noted. (unknown) (no (unknown) (unknown) size. 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 For radiation dose reduction, the (unknown) (no (unknown) (unknown) was used: (units (unkn own) date) automated exposure unknown) control, adjustment of mA and/or kV according to (unknown) (no (unknown) (unknown) with cavernous (units (unknown) date) segments of both unknown) internal carotid arteries. (unknown) (no (unknown) (unknown) [id number] (units (unkno wn) date) unknown) (unknown) (no (unknown) (unknown) Accession Number: (units (unknown) date) [id number] unknown) (unknown) (no (unknown) (unknown) Accession Number: (units (unknown) date) [id number] unknown) (unknown) (no (unknown) (unknown) Accession Number: (units (unknown) date) [id number] unknown) (unknown) (no (unknown) (unknown) Age/Sex: 89 / F (units (unknown) date) Date of Service: unknown) (unknown) (no (unknown) (unknown) C4-5, C5-6 (units (unk nown) date) unknown) (unknown) (no (unknown) (unknown) : 1930 (units (unknown) date) Acct:[id number] unknown) (unknown) (no (unknown) (unknown) Loc: ED (units (unkno wn) date) unknown) (unknown) (no (unknown) (unknown) Ordering (units (unkno wn) date) Provider: unknown) Martin Jernigan D.O. (unknown) (no (unknown) (unknown) PROCEDURE: CT (units (unknown) date) CERVICAL SPINE WO unknown) CON (unknown) (no (unknown) (unknown) PROCEDURE: CT (units (unknown) date) HEAD/BRAIN WO CON unknown) (unknown) (no (unknown) (unknown) PROCEDURE: XR (units (unknown) date) HIP W PEL IF DONE unknown) LT 2V (unknown) (no (unknown) (unknown) Patient: (units (unkno wn) date) Rosa Maria Godfrey unknown) MR#: [id number] (unknown) (no (unknown) (unknown) Procedure: CT (units ( unknown) date) cervical spine wo unknown) con (unknown) (no (unknown) (unknown) Procedure: CT (units ( unknown) date) head/brain wo con unknown) (unknown) (no (unknown) (unknown) Procedure: XR hip (units (unknown) date) w pel if done LT unknown) 2V (unknown) (no (unknown) (unknown) Sagittal (units (unkno wn) date) unknown) (unknown) (no (unknown) (unknown) Ventricles (units (unk nown) date) unknown) (unknown) (no (unknown) (unknown) associated (units (unk nown) date) unknown) (unknown) (no (unknown) (unknown) following (units (unkn own) date) unknown) (unknown) (no (unknown) (unknown) lower cervical (units (unknown) date) unknown) (unknown) (no (unknown) (unknown) matter (units (unkno wn) date) unknown) (unknown) (no (unknown) (unknown) multifocal white (units (unknown) date) unknown) (unknown) (no (unknown) (unknown) paravertebral (units ( unknown) date) unknown) (unknown) (no (unknown) (unknown) patient (units (unkno wn) date) unknown) (unknown) (no (unknown) (unknown) suspicious (units (unk nown) date) unknown) (unknown) (no (unknown) (unknown) to the (units (unkno wn) date) unknown) (unknown) (no (unknown) (unknown) traumatic (units (unkn own) date) unknown) (unknown) (no (unknown) (unknown) visualized pelvic (units (unknown) date) unknown) Result panel 3 (unknown) (no date) (unknown) (unknown) (no value) (units (un known) unknown) (unknown) (no date) (unknown) (unknown) Date of (units (unkn own) Service: unknown) 12/14/21 (unknown) (no date) (unknown) (unknown) (no value) (units (un known) unknown) (unknown) (no date) (unknown) (unknown) Allergies (units (unk nown) unknown) (unknown) (no date) (unknown) (unknown) Emergency (units (unk nown) Report unknown) (unknown) (no date) (unknown) (unknown) [facility] [address] unknown) [address] [place] [id number] (unknown) (no date) (unknown) (unknown) (no value) (units (un known) unknown) (unknown) (no date) (unknown) (unknown) [id number] (units (unkn own) unknown) (unknown) (no date) (unknown) (unknown) Age/Sex: 89 / (units (unknown) F unknown) (unknown) (no date) (unknown) (unknown) Allergy/AdvRe (units (unknown) ac Type unknown) Severity Reaction Status Date / Time (unknown) (no date) (unknown) (unknown) : (units (unkn own) 1930 unknown) Acct:[id number] (unknown) (no date) (unknown) (unknown) Departure (units (unk nown) unknown) (unknown) (no date) (unknown) (unknown) Discharge (units (unk nown) Plan unknown) (unknown) (no date) (unknown) (unknown) ER Physician: (units (unknown) Martin Jernigan unknown) D.ODc (unknown) (no date) (unknown) (unknown) Salvador Wiley (units (un known) MD Juma unknown) [Primary Care Provider] - (unknown) (no date) (unknown) (unknown) General (units (unkn own) unknown) (unknown) (no date) (unknown) (unknown) HPI - Fall (units (un known) unknown) (unknown) (no date) (unknown) (unknown) No Known Drug (units (unknown) Allergies unknown) Allergy Verified 12/14/21 11:05 (unknown) (no date) (unknown) (unknown) Patient: (units (unkn own) Staci Godfrey unknown) e MR#: [id number] (unknown) (no date) (unknown) (unknown) Referrals: (units (un known) unknown) (unknown) (no date) (unknown) (unknown) Related Data (units ( unknown) unknown) (unknown) (no date) (unknown) (unknown) Signed By: (units (un known) unknown) (unknown) (no date) (unknown) (unknown) Stated (units (unkn own) Complaint: unknown) Found down with right hip pain (unknown) (no date) (unknown) (unknown) Time Seen by (units ( unknown) Provider: unknown) 12/14/21 11:03 Result panel 4 (unknown) (no (unknown) (unknown) (no value) (units (unk nown) date) unknown) (unknown) (no (unknown) (unknown) Date of Service: (units (unknown) date) 12/14/21 unknown) (unknown) (no (unknown) (unknown) (no value) (units (unk nown) date) unknown) (unknown) (no (unknown) (unknown) Allergies (units (unkn own) date) unknown) (unknown) (no (unknown) (unknown) ED Orders (units (unkn own) date) unknown) (unknown) (no (unknown) (unknown) Emergency Report (units (unknown) date) unknown) (unknown) (no (unknown) (unknown) [facility] (units (unknown) date) [address] unknown) [place] [address] (unknown) (no (unknown) (unknown) Vital Signs - 8 (units (unknown) date) hr unknown) (unknown) (no (unknown) (unknown) (no value) (units (unk nown) date) unknown) (unknown) (no (unknown) (unknown) 12/14/21 (units (unkno wn) date) unknown) (unknown) (no (unknown) (unknown) [id number] (units (unkno wn) date) unknown) (unknown) (no (unknown) (unknown) 12/14/21 11:06 (units (unknown) date) unknown) (unknown) (no (unknown) (unknown) 12/14/21 11:08 (units (unknown) date) unknown) (unknown) (no (unknown) (unknown) 11:05 (units (unkno wn) date) unknown) (unknown) (no (unknown) (unknown) Age/Sex: 89 / F (units (unknown) date) unknown) (unknown) (no (unknown) (unknown) Allergy/AdvReac (units (unknown) date) Type Severity unknown) Reaction Status Date / Time (unknown) (no (unknown) (unknown) Blood Pressure (units (unknown) date) 164/67 H unknown) 12/14/21 11:05 (unknown) (no (unknown) (unknown) Blood Pressure (units (unknown) date) 164/67 H unknown) (unknown) (no (unknown) (unknown) COVID19 -Nasal (units (unknown) date) RAPID/Pre-Proc unknown) Stat (unknown) (no (unknown) (unknown) CT cervical (units (un known) date) spine wo con Stat unknown) (unknown) (no (unknown) (unknown) CT head/brain wo (units (unknown) date) con Stat unknown) (unknown) (no (unknown) (unknown) Chief Complaint: (units (unknown) date) Fall unknown) (unknown) (no (unknown) (unknown) Complete Blood (units (unknown) date) Count AUTO DIFF unknown) Stat (unknown) (no (unknown) (unknown) Comprehensive (units ( unknown) date) Metabolic Panel unknown) Stat (unknown) (no (unknown) (unknown) Course (units (unkno wn) date) unknown) (unknown) (no (unknown) (unknown) : 1930 (units (unknown) date) Acct:[id number] unknown) (unknown) (no (unknown) (unknown) Departure (units (unkn own) date) unknown) (unknown) (no (unknown) (unknown) Discharge Plan (units (unknown) date) unknown) (unknown) (no (unknown) (unknown) ER Physician: (units ( unknown) date) Martin Jernigan unknown) D.O. (unknown) (no (unknown) (unknown) Exam (units (unkno wn) date) unknown) (unknown) (no (unknown) (unknown) Salvador Wiley (units (unk nown) date) MD Juma unknown) [Primary Care Provider] - (unknown) (no (unknown) (unknown) General (units (unkno wn) date) unknown) (unknown) (no (unknown) (unknown) HPI - Fall (units (unk nown) date) unknown) (unknown) (no (unknown) (unknown) Initial Vital (units ( unknown) date) Signs unknown) (unknown) (no (unknown) (unknown) Initial Vital (units ( unknown) date) Signs: unknown) (unknown) (no (unknown) (unknown) No Known Drug (units ( unknown) date) Allergies Allergy unknown) Verified 12/14/21 11:05 (unknown) (no (unknown) (unknown) Ordered: (units (unkno wn) date) unknown) (unknown) (no (unknown) (unknown) Orders (units (unkno wn) date) unknown) (unknown) (no (unknown) (unknown) Oxygen Delivery (units (unknown) date) Method unknown) 12/14/21 11:05 (unknown) (no (unknown) (unknown) Oxygen Delivery (units (unknown) date) Method Room Air unknown) (unknown) (no (unknown) (unknown) Patient: (units (unkno wn) date) Rosa Maria Godfrey unknown) MR#: [id number] (unknown) (no (unknown) (unknown) Pulse Oximetry (units (unknown) date) 94 12/14/21 unknown) 11:05 (unknown) (no (unknown) (unknown) Pulse Oximetry (units (unknown) date) 94 unknown) (unknown) (no (unknown) (unknown) Pulse Rate 66 (units (unknown) date) 12/14/21 11:05 unknown) (unknown) (no (unknown) (unknown) Pulse Rate 66 (units ( unknown) date) unknown) (unknown) (no (unknown) (unknown) Referrals: (units (unk nown) date) unknown) (unknown) (no (unknown) (unknown) Related Data (units (u nknown) date) unknown) (unknown) (no (unknown) (unknown) Respiratory Rate (units (unknown) date) 18 12/14/21 unknown) 11:05 (unknown) (no (unknown) (unknown) Respiratory Rate (units (unknown) date) 18 unknown) (unknown) (no (unknown) (unknown) Signed By: (units (unk nown) date) unknown) (unknown) (no (unknown) (unknown) Stated (units (unkno wn) date) Complaint: Found unknown) down with right hip pain (unknown) (no (unknown) (unknown) Temperature 97 (units (unknown) date) F L 12/14/21 unknown) 11:05 (unknown) (no (unknown) (unknown) Temperature 97 F (units (unknown) date) L unknown) (unknown) (no (unknown) (unknown) Time Seen by (units (u nknown) date) Provider: unknown) 12/14/21 11:03 (unknown) (no (unknown) (unknown) Vital Signs (units (un known) date) unknown) (unknown) (no (unknown) (unknown) Vital signs: (units (u nknown) date) unknown) (unknown) (no (unknown) (unknown) XR hip w pel if (units (unknown) date) done LT 2V Stat unknown) Result panel 5 (unknown) (no (unknown) (unknown) (no value) (units (unk nown) date) unknown) (unknown) (no (unknown) (unknown) Date of Service: (units (unknown) date) 12/14/21 unknown) (unknown) (no (unknown) (unknown) (no value) (units (unk nown) date) unknown) (unknown) (no (unknown) (unknown) Allergies (units (unkn own) date) unknown) (unknown) (no (unknown) (unknown) ED Orders (units (unkn own) date) unknown) (unknown) (no (unknown) (unknown) Emergency Report (units (unknown) date) unknown) (unknown) (no (unknown) (unknown) [facility] (units (unknown) date) [address] unknown) [place] [address] (unknown) (no (unknown) (unknown) Vital Signs - 8 (units (unknown) date) hr unknown) (unknown) (no (unknown) (unknown) (no value) (units (unk nown) date) unknown) (unknown) (no (unknown) (unknown) 12/14/21 (units (unkno wn) date) unknown) (unknown) (no (unknown) (unknown) rales, or (units (unkn own) date) rhonchi. unknown) (unknown) (no (unknown) (unknown) [id number] (units (unkno wn) date) unknown) (unknown) (no (unknown) (unknown) 12/14/21 11:06 (units (unknown) date) unknown) (unknown) (no (unknown) (unknown) 12/14/21 11:08 (units (unknown) date) unknown) (unknown) (no (unknown) (unknown) 11:05 (units (unkno wn) date) unknown) (unknown) (no (unknown) (unknown) 12 point review (units (unknown) date) of systems is unknown) negative except for those stated above (unknown) (no (unknown) (unknown) 89-year-old (units (un known) date) female nonsmoker unknown) with dementia presents from long-term (unknown) (no (unknown) (unknown) Age/Sex: 89 / F (units (unknown) date) unknown) (unknown) (no (unknown) (unknown) Allergy/AdvReac (units (unknown) date) Type Severity unknown) Reaction Status Date / Time (unknown) (no (unknown) (unknown) BACK: Nontender (units (unknown) date) without deformity unknown) or crepitance. No flank tenderness. (unknown) (no (unknown) (unknown) Blood Pressure (units (unknown) date) 164/67 H 12/14/21 unknown) 11:05 (unknown) (no (unknown) (unknown) Blood Pressure (units (unknown) date) 164/67 H unknown) (unknown) (no (unknown) (unknown) CARDIOVASCULAR: (units (unknown) date) Denies chest pain, unknown) palpitations, orthopnea, edema, (unknown) (no (unknown) (unknown) CARDIOVASCULAR: (units (unknown) date) Regular rate and unknown) rhythm without murmurs, gallops, or rubs. (unknown) (no (unknown) (unknown) COVID19 -Nasal (units (unknown) date) RAPID/Pre-Proc unknown) Stat (unknown) (no (unknown) (unknown) CT cervical spine (units (unknown) date) wo con Stat unknown) (unknown) (no (unknown) (unknown) CT head/brain wo (units (unknown) date) con Stat unknown) (unknown) (no (unknown) (unknown) Chief Complaint: (units (unknown) date) Fall unknown) (unknown) (no (unknown) (unknown) Complete Blood (units (unknown) date) Count AUTO DIFF unknown) Stat (unknown) (no (unknown) (unknown) Comprehensive (units ( unknown) date) Metabolic Panel unknown) Stat (unknown) (no (unknown) (unknown) Course (units (unkno wn) date) unknown) (unknown) (no (unknown) (unknown) : 1930 (units (unknown) date) Acct:[id number] unknown) (unknown) (no (unknown) (unknown) Departure (units (unkn own) date) unknown) (unknown) (no (unknown) (unknown) Discharge Plan (units (unknown) date) unknown) (unknown) (no (unknown) (unknown) ENT: Nose without (units (unknown) date) bleeding, purulent unknown) drainage. Throat without erythema, (unknown) (no (unknown) (unknown) ER Physician: (units ( unknown) date) Martin Jernigan D.O. unknown) (unknown) (no (unknown) (unknown) EXTREMITIES: (units (u nknown) date) Left hip tender to unknown) palpation, appears to have shortening and (unknown) (no (unknown) (unknown) EYES: Pupils (units (u nknown) date) equal round and unknown) reactive. Extraocular motions intact. No scleral (unknown) (no (unknown) (unknown) Exam (units (unkno wn) date) unknown) (unknown) (no (unknown) (unknown) Exam Narrative: (units (unknown) date) unknown) (unknown) (no (unknown) (unknown) Salvador Wiley (units (unk nown) date) MD Juma unknown) [Primary Care Provider] - (unknown) (no (unknown) (unknown) GASTROINTESTINAL: (units (unknown) date) Abdomen soft, unknown) non-tender, nondistended. (unknown) (no (unknown) (unknown) GASTROINTESTINAL: (units (unknown) date) Denies nausea, unknown) vomiting, abdominal pain, diarrhea, (unknown) (no (unknown) (unknown) GENERAL: 89[] (units ( unknown) date) year old patient unknown) appears stated age. Well-developed patient, in (unknown) (no (unknown) (unknown) GENERAL: Denies (units (unknown) date) chills, fatigue, unknown) malaise, fever, sweats. (unknown) (no (unknown) (unknown) : Denies (units (unk nown) date) dysuria, unknown) frequency, incontinence, hematuria, urinary retention. (unknown) (no (unknown) (unknown) General (units (unkno wn) date) unknown) (unknown) (no (unknown) (unknown) HEAD: Atraumatic. (units (unknown) date) Normocephalic. unknown) (unknown) (no (unknown) (unknown) HEENT: Denies (units ( unknown) date) sinus pain, ear unknown) pain, sore throat, difficulty swallowing, (unknown) (no (unknown) (unknown) HPI - Fall (units (unk nown) date) unknown) (unknown) (no (unknown) (unknown) HPI Narrative: (units (unknown) date) unknown) (unknown) (no (unknown) (unknown) History of (units (unk nown) date) Present Illness unknown) (unknown) (no (unknown) (unknown) Initial Vital (units ( unknown) date) Signs unknown) (unknown) (no (unknown) (unknown) Initial Vital (units ( unknown) date) Signs: unknown) (unknown) (no (unknown) (unknown) MUSCULOSKELETAL: (units (unknown) date) See HPI unknown) (unknown) (no (unknown) (unknown) NECK: Trachea (units ( unknown) date) midline. Non unknown) tender (unknown) (no (unknown) (unknown) NEURO: AOx3. (units (u nknown) date) unknown) (unknown) (no (unknown) (unknown) NEUROLOGIC: (units (un known) date) Denies weakness, unknown) headache, numbness, change in speech, confusion, (unknown) (no (unknown) (unknown) Narrative (units (unkn own) date) unknown) (unknown) (no (unknown) (unknown) Narrative: (units (unk nown) date) unknown) (unknown) (no (unknown) (unknown) No Known Drug (units ( unknown) date) Allergies Allergy unknown) Verified 12/14/21 11:05 (unknown) (no (unknown) (unknown) Ordered: (units (unkno wn) date) unknown) (unknown) (no (unknown) (unknown) Orders (units (unkno wn) date) unknown) (unknown) (no (unknown) (unknown) Oxygen Delivery (units (unknown) date) Method 12/14/21 unknown) 11:05 (unknown) (no (unknown) (unknown) Oxygen Delivery (units (unknown) date) Method Room Air unknown) (unknown) (no (unknown) (unknown) PSYCHIATRIC: No (units (unknown) date) concerning unknown) psychosocial issues. (unknown) (no (unknown) (unknown) Patient: (units (unkno wn) date) Rosa Maria Godfrey unknown) MR#: [id number] (unknown) (no (unknown) (unknown) Pulse Oximetry (units (unknown) date) 94 12/14/21 unknown) 11:05 (unknown) (no (unknown) (unknown) Pulse Oximetry 94 (units (unknown) date) unknown) (unknown) (no (unknown) (unknown) Pulse Rate 66 (units (unknown) date) 12/14/21 11:05 unknown) (unknown) (no (unknown) (unknown) Pulse Rate 66 (units ( unknown) date) unknown) (unknown) (no (unknown) (unknown) RESPIRATORY: Clear (units (unknown) date) to auscultation. unknown) Breath sounds equal bilaterally. No wheezes, (unknown) (no (unknown) (unknown) RESPIRATORY: (units (u nknown) date) Denies dyspnea, unknown) cough, wheezing, hemoptysis, sputum. (unknown) (no (unknown) (unknown) Referrals: (units (unk nown) date) unknown) (unknown) (no (unknown) (unknown) Related Data (units (u nknown) date) unknown) (unknown) (no (unknown) (unknown) Respiratory Rate (units (unknown) date) 18 12/14/21 unknown) 11:05 (unknown) (no (unknown) (unknown) Respiratory Rate (units (unknown) date) 18 unknown) (unknown) (no (unknown) (unknown) Review of Systems (units (unknown) date) unknown) (unknown) (no (unknown) (unknown) SKIN: Denies (units (u nknown) date) rash, skin unknown) lesions, or other (unknown) (no (unknown) (unknown) SKIN: No rash or (units (unknown) date) erythema of unknown) visible areas (unknown) (no (unknown) (unknown) She denies other (units (unknown) date) injury. She has unknown) no chest pain or shortness of breath and (unknown) (no (unknown) (unknown) Signed By: (units (unk nown) date) unknown) (unknown) (no (unknown) (unknown) Stated Complaint: (units (unknown) date) Found down with unknown) right hip pain (unknown) (no (unknown) (unknown) Temperature 97 F (units (unknown) date) L 12/14/21 11:05 unknown) (unknown) (no (unknown) (unknown) Temperature 97 F (units (unknown) date) L unknown) (unknown) (no (unknown) (unknown) Time Seen by (units (u nknown) date) Provider: 12/14/21 unknown) 11:03 (unknown) (no (unknown) (unknown) Vital Signs (units (un known) date) unknown) (unknown) (no (unknown) (unknown) Vital signs: (units (u nknown) date) unknown) (unknown) (no (unknown) (unknown) XR hip w pel if (units (unknown) date) done LT 2V Stat unknown) (unknown) (no (unknown) (unknown) activated as a (units ( unknown) date) modified trauma unknown) given her age and suspected left hip injury. She (unknown) (no (unknown) (unknown) constipation, (units ( unknown) date) melena. unknown) (unknown) (no (unknown) (unknown) denies any (units (unk nown) date) nausea, vomiting unknown) or diarrhea (unknown) (no (unknown) (unknown) dizziness. (units (unk nown) date) unknown) (unknown) (no (unknown) (unknown) external (units (unkno wn) date) rotation, closed, unknown) isolated and neurovascularly intact (unknown) (no (unknown) (unknown) facility by EMS (units (unknown) date) for evaluation of unknown) injury sustained from a fall. She is (unknown) (no (unknown) (unknown) icterus. No (units (un known) date) injection or unknown) drainage. (unknown) (no (unknown) (unknown) mild distress. (units (unknown) date) Pleasantly unknown) confused, GCS 14 (unknown) (no (unknown) (unknown) range of motion (units (unknown) date) or palpation. She unknown) denies any numbness, tingling or weakness. (unknown) (no (unknown) (unknown) seizures, (units (unkn own) date) incoordination. unknown) (unknown) (no (unknown) (unknown) severe left hip (units (unknown) date) pain. She does unknown) not take anticoagulation. She has pain with (unknown) (no (unknown) (unknown) standing or from (units (unknown) date) bed. She denies unknown) any head neck or back pain but complains of (unknown) (no (unknown) (unknown) tonsillar (units (unkn own) date) hypertrophy or unknown) exudate. Airway patent. (unknown) (no (unknown) (unknown) was found down (units (unknown) date) this morning by unknown) nursing staff, it is unclear she fell from Result panel 6 (unknown) (no (unknown) (unknown) (no value) (units (unk nown) date) unknown) (unknown) (no (unknown) (unknown) [address] [place] [address] (units (unknown) date) unknown) (unknown) (no (unknown) (unknown) [place] (units ( unknown) date[place] [id number] unknown) (unknown) (no (unknown) (unknown) CT Scan Report (units (unknown) date) unknown) (unknown) (no (unknown) (unknown) [facility] (units (unknown) date) unknown) (unknown) (no (unknown) (unknown) Signed (units (unkno wn) date) unknown) (unknown) (no (unknown) (unknown) (no value) (units (unk nown) date) unknown) (unknown) (no (unknown) (unknown) 12/14/21 (units (unkno wn) date) unknown) (unknown) (no (unknown) (unknown) 1. No evidence of (units (unknown) date) fracture or unknown) subluxation in the pelvis. (unknown) (no (unknown) (unknown) 2. Degenerative (units (unknown) date) sacroiliac and unknown) lower lumbar spine changes results in severe (unknown) (no (unknown) (unknown) After the (units (unkn own) date) administration of unknown) oral contrast, 5 mm thick sections acquired from (unknown) (no (unknown) (unknown) Approved by: Amando Bartlettunits (unknown) date) Agus Queen on unknown) 12/14/2021 at 11:31 (unknown) (no (unknown) (unknown) Bones: (units (unkno wn) date) Sacroiliac unknown) periarticular sclerosis and anterior marginal osteophytes (unknown) (no (unknown) (unknown) COMPARISON: (units (un known) date) [facility], unknown) CR, XR HIP W PEL IF DONE LT 2V, 12/14/2021, 11:20. (unknown) (no (unknown) (unknown) Degenerative (units (u nknown) date) changes noted unknown) lower lumbar spine associated with severe central (unknown) (no (unknown) (unknown) FINDINGS: (units (unkn own) date) unknown) (unknown) (no (unknown) (unknown) Genitourinary: (units (unknown) date) Bladder wall unknown) thickness is normal. (unknown) (no (unknown) (unknown) IMPRESSION: (units (un known) date) unknown) (unknown) (no (unknown) (unknown) INDICATIONS: (units (u nknown) date) left hip pain, fal unknown) (unknown) (no (unknown) (unknown) Image quality: (units (unknown) date) Excellent. unknown) (unknown) (no (unknown) (unknown) L4-5. Both (units (un known) date) proximal femurs unknown) are intact without fracture. Pelvic ring intact as (unknown) (no (unknown) (unknown) Miscellaneous: (units (unknown) date) No inguinal unknown) hernias. (unknown) (no (unknown) (unknown) Nodes and (units (unkn own) date) vessels: No unknown) iliac, pelvic, or inguinal adenopathy by size criteria. (unknown) (no (unknown) (unknown) Peritoneum and (units (unknown) date) bowel: Bowel unknown) loops demonstrate normal wall thickness and (unknown) (no (unknown) (unknown) TECHNIQUE: (units (unk nown) date) unknown) (unknown) (no (unknown) (unknown) crests to the (units ( unknown) date) symphysis. 5 mm unknown) coronal and sagittal reformats were then (unknown) (no (unknown) (unknown) free fluid or (units ( unknown) date) air. unknown) (unknown) (no (unknown) (unknown) noted without (units ( unknown) date) evidence of unknown) aneurysm. (unknown) (no (unknown) (unknown) of mA and/or kV (units (unknown) date) according to unknown) patient size. (unknown) (no (unknown) (unknown) radiation dose (units (unknown) date) reduction, the unknown) following was used: automated exposure control, (unknown) (no (unknown) (unknown) stenosis at L4-5 (units (unknown) date) unknown) (unknown) (no (unknown) (unknown) vessels (units (unkno wn) date) demonstrate normal unknown) size. Atherosclerotic calcification in the (unknown) (no (unknown) (unknown) [id number] (units (unkno wn) date) unknown) (unknown) (no (unknown) (unknown) Accession Number: (units (unknown) date) [id number] unknown) (unknown) (no (unknown) (unknown) Age/Sex: 89 / F (units (unknown) date) Date of Service: unknown) (unknown) (no (unknown) (unknown) : 1930 (units (unknown) date) Acct:[id number] unknown) (unknown) (no (unknown) (unknown) Iliac (units (unkno wn) date) unknown) (unknown) (no (unknown) (unknown) Loc: ED (units (unkno wn) date) unknown) (unknown) (no (unknown) (unknown) Ordering (units (unkno wn) date) Provider: unknown) Martin Jernigan D.O. (unknown) (no (unknown) (unknown) PROCEDURE: CT (units (unknown) date) PEL WO CON unknown) (unknown) (no (unknown) (unknown) Patient: (units (unkno wn) date) Rosa Maria Godfrey unknown) MR#: [id number] (unknown) (no (unknown) (unknown) Procedure: CT (units ( unknown) date) pelvis wo con unknown) (unknown) (no (unknown) (unknown) abdominal aorta (units (unknown) date) unknown) (unknown) (no (unknown) (unknown) adjustment (units (unk nown) date) unknown) (unknown) (no (unknown) (unknown) caliber. No (units (u nknown) date) unknown) (unknown) (no (unknown) (unknown) central (units (unkno wn) date) unknown) (unknown) (no (unknown) (unknown) performed. For (units (unknown) date) unknown) (unknown) (no (unknown) (unknown) present. (units (unkno wn) date) unknown) (unknown) (no (unknown) (unknown) stenosis at (units (un known) date) unknown) (unknown) (no (unknown) (unknown) the iliac (units (unkn own) date) unknown) (unknown) (no (unknown) (unknown) well. (units (unkno wn) date) unknown) Result panel 7 (unknown) (no date) (unknown) (unknown) Negative (units (unkn own) unknown) Result panel 8 (unknown) (no date) (unknown) (unknown) 0 /uL (unkn own) (unknown) (no date) (unknown) (unknown) 0.5 % (unkn own) (unknown) (no date) (unknown) (unknown) 10.2 g/dL (unkn own) (unknown) (no date) (unknown) (unknown) 100 /uL (unkn own) (unknown) (no date) (unknown) (unknown) 12.7 % (unkn own) (unknown) (no date) (unknown) (unknown) 14.5 % (unkn own) (unknown) (no date) (unknown) (unknown) 164 X10 3/uL (unkn own) (unknown) (no date) (unknown) (unknown) 29.3 % (unkn own) (unknown) (no date) (unknown) (unknown) 3.0 % (unkn own) (unknown) (no date) (unknown) (unknown) 3.30 X10 6/uL (unkn own) (unknown) (no date) (unknown) (unknown) 30.8 PG (unkn own) (unknown) (no date) (unknown) (unknown) 300 /uL (unkn own) (unknown) (no date) (unknown) (unknown) 34.7 % (unkn own) (unknown) (no date) (unknown) (unknown) 3800 /uL (unkn own) (unknown) (no date) (unknown) (unknown) 5.0 X10 3/uL (unkn own) (unknown) (no date) (unknown) (unknown) 6.4 % (unkn own) (unknown) (no date) (unknown) (unknown) 700 /uL (unkn own) (unknown) (no date) (unknown) (unknown) 75.6 % (unkn own) (unknown) (no date) (unknown) (unknown) 88.8 fL (unkn own) Result panel 9 (unknown) (no date) (unknown) (unknown) 0.6 mg/dL (unkn own) (unknown) (no date) (unknown) (unknown) 1.0 (units unknown) (unknown) (unknown) (no date) (unknown) (unknown) 1.18 mg/dL (unkn own) (unknown) (no date) (unknown) (unknown) 102 mmol/L (unkn own) (unknown) (no date) (unknown) (unknown) 123 mg/dL (unkn own) (unknown) (no date) (unknown) (unknown) 135 mmol/L (unkn own) (unknown) (no date) (unknown) (unknown) 17 IU/L (unkn own) (unknown) (no date) (unknown) (unknown) 21 IU/L (unkn own) (unknown) (no date) (unknown) (unknown) 24.6 (units unknown) (unknown) (unknown) (no date) (unknown) (unknown) 28 mmol/L (unkn own) (unknown) (no date) (unknown) (unknown) 29 mg/dL (unkn own) (unknown) (no date) (unknown) (unknown) 3.1 g/dL (unkn own) (unknown) (no date) (unknown) (unknown) 3.2 g/dL (unkn own) (unknown) (no date) (unknown) (unknown) 4.3 mmol/L (unkn own) (unknown) (no date) (unknown) (unknown) 44 mL/min (unkn own) (unknown) (no date) (unknown) (unknown) 6.3 g/dL (unkn own) (unknown) (no date) (unknown) (unknown) 60 U/L (unkn own) (unknown) (no date) (unknown) (unknown) 9.2 mg/dL (unkn own) Result panel 10 (unknown) (no (unknown) (unknown) (no value) (units (unk nown) date) unknown) (unknown) (no (unknown) (unknown) Radiologist's (units ( unknown) date) Impression: unknown) (unknown) (no (unknown) (unknown) Date of Service: (units (unknown) date) 12/14/21 unknown) (unknown) (no (unknown) (unknown) (no value) (units (unk nown) date) unknown) (unknown) (no (unknown) (unknown) 12/14/21 12:05 (units (unknown) date) unknown) (unknown) (no (unknown) (unknown) [address] [place] [address] (units (unknown) date) unknown) (unknown) (no (unknown) (unknown) Allergies (units (unkn own) date) unknown) (unknown) (no (unknown) (unknown) [facility] (units ( unknown) date) [id number] unknown) (unknown) (no (unknown) (unknown) CT Scan Report (units (unknown) date) unknown) (unknown) (no (unknown) (unknown) Close (units (unkno wn) date) unknown) (unknown) (no (unknown) (unknown) ED Orders (units (unkn own) date) unknown) (unknown) (no (unknown) (unknown) Emergency Report (units (unknown) date) unknown) (unknown) (no (unknown) (unknown) [facility] (units (unknown) date) unknown) (unknown) (no (unknown) (unknown) [facility] (units (unknown) date) [address] unknown) [place] [address] (unknown) (no (unknown) (unknown) Lab Results (units (un known) date) unknown) (unknown) (no (unknown) (unknown) Launch?Image (units (u nknown) date) unknown) (unknown) (no (unknown) (unknown) Signed (units (unkno wn) date) unknown) (unknown) (no (unknown) (unknown) Vital Signs - 8 (units (unknown) date) hr unknown) (unknown) (no (unknown) (unknown) (no value) (units (unk nown) date) unknown) (unknown) (no (unknown) (unknown) 12/14/21 12/14/21 (units (unknown) date) 12/14/21 unknown) Range/Units (unknown) (no (unknown) (unknown) 11:08 12:05 12:05 (units (unknown) date) unknown) (unknown) (no (unknown) (unknown) 12/14/21 (units (unkno wn) date) unknown) (unknown) (no (unknown) (unknown) cervical (units (unkno wn) date) unknown) (unknown) (no (unknown) (unknown) rales, or (units (unkn own) date) rhonchi. unknown) (unknown) (no (unknown) (unknown) - (units (unkno wn) date) unknown) (unknown) (no (unknown) (unknown) [id number] (units (unkno wn) date) unknown) (unknown) (no (unknown) (unknown) 12/14/21 (units (unkno wn) date) unknown) (unknown) (no (unknown) (unknown) 12/14/21 11:06 (units (unknown) date) unknown) (unknown) (no (unknown) (unknown) 12/14/21 11:08 (units (unknown) date) unknown) (unknown) (no (unknown) (unknown) 12/14/21 11:35 (units (unknown) date) unknown) (unknown) (no (unknown) (unknown) 12/14/21 12:05 (units (unknown) date) unknown) (unknown) (no (unknown) (unknown) 1. Multilevel (units ( unknown) date) degenerative disc unknown) disease and arthropathy without fracture or (unknown) (no (unknown) (unknown) 11:04 12/14/21 (units (unknown) date) unknown) (unknown) (no (unknown) (unknown) 11:05 (units (unkno wn) date) unknown) (unknown) (no (unknown) (unknown) 11:05 12/14/21 (units (unknown) date) unknown) (unknown) (no (unknown) (unknown) 12 point review (units (unknown) date) of systems is unknown) negative except for those stated above (unknown) (no (unknown) (unknown) 89-year-old (units (un known) date) female nonsmoker unknown) with dementia presents from long-term (unknown) (no (unknown) (unknown) ? (units (unkno wn) date) unknown) (unknown) (no (unknown) (unknown) ALT 17 (<35) (units (unknown) date) IU/L unknown) (unknown) (no (unknown) (unknown) AST 21 (units (unkn own) date) (14-36) IU/L unknown) (unknown) (no (unknown) (unknown) Accession Number: (units (unknown) date) [id number] ?? unknown) (unknown) (no (unknown) (unknown) Accession Number: (units (unknown) date) [id number] ?? unknown) (unknown) (no (unknown) (unknown) Acct:[id number] (units (unknown) date) unknown) (unknown) (no (unknown) (unknown) Age/Sex: 89 / F (units (unknown) date) unknown) (unknown) (no (unknown) (unknown) Age/Sex: 89 / F (units (unknown) date) unknown) (unknown) (no (unknown) (unknown) Albumin 3.1 L (units (unknown) date) (3.5-5.0) g/dL unknown) (unknown) (no (unknown) (unknown) Albumin/Globulin (units (unknown) date) Ratio 1.0 unknown) (1.0-2.8) (unknown) (no (unknown) (unknown) Alkaline (units (unkno wn) date) Phosphatase 60 unknown) (38-126) U/L (unknown) (no (unknown) (unknown) Allergy/AdvReac (units (unknown) date) Type Severity unknown) Reaction Status Date / Time (unknown) (no (unknown) (unknown) Approved by: Amando (units (unknown) date) Agus Queen on unknown) 12/14/2021 at 11:16? (unknown) (no (unknown) (unknown) Approved by: Amando (units (unknown) date) Agus Queen on unknown) 12/14/2021 at 11:22? (unknown) (no (unknown) (unknown) Atrophy and (units (un known) date) chronic ischemic unknown) change without acute hemorrhage or mass effect (unknown) (no (unknown) (unknown) BACK: Nontender (units (unknown) date) without deformity unknown) or crepitance. No flank tenderness. (unknown) (no (unknown) (unknown) BUN 29 H (units (un known) date) (7-17) mg/dL unknown) (unknown) (no (unknown) (unknown) BUN/Creatinine (units (unknown) date) Ratio 24.6 H unknown) (6-22) (unknown) (no (unknown) (unknown) Baso # (Auto) 0 (units (unknown) date) (0-100) /uL unknown) (unknown) (no (unknown) (unknown) Baso % (Auto) (units ( unknown) date) 0.5 (0-2) % unknown) (unknown) (no (unknown) (unknown) Blood Pressure (units (unknown) date) 164/67 H 164/67 H unknown) (unknown) (no (unknown) (unknown) Bones:? No (units (unk nown) date) fractures or unknown) dislocations.? Visualized superior ribs are intact.? (unknown) (no (unknown) (unknown) Brain:? No (units (unk nown) date) midline shift.? No unknown) intracranial masses or hemorrhage.? [place]-white (unknown) (no (unknown) (unknown) C4-5, C5-6 (units (unk nown) date) unknown) (unknown) (no (unknown) (unknown) CARDIOVASCULAR: (units (unknown) date) Denies chest pain, unknown) palpitations, orthopnea, edema, (unknown) (no (unknown) (unknown) CARDIOVASCULAR: (units (unknown) date) Regular rate and unknown) rhythm without murmurs, gallops, or rubs. (unknown) (no (unknown) (unknown) COMPARISON:? (units (u nknown) date) None. unknown) (unknown) (no (unknown) (unknown) COVID19 -Nasal (units (unknown) date) RAPID/Pre-Proc unknown) Stat (unknown) (no (unknown) (unknown) CSF spaces:? (units (u nknown) date) Basal cisterns are unknown) patent.? No extra-axial fluid collections.? (unknown) (no (unknown) (unknown) CT - cervical (units ( unknown) date) spine: unknown) (unknown) (no (unknown) (unknown) CT cervical spine (units (unknown) date) wo con Stat unknown) (unknown) (no (unknown) (unknown) CT head/brain wo (units (unknown) date) con Stat unknown) (unknown) (no (unknown) (unknown) CT pelvis wo con (units (unknown) date) Stat unknown) (unknown) (no (unknown) (unknown) CT scan - head: (units (unknown) date) unknown) (unknown) (no (unknown) (unknown) Calcium 9.2 (units (unknown) date) (8.4-10.2) mg/dL unknown) (unknown) (no (unknown) (unknown) Carbon Dioxide (units (unknown) date) 28 (22-32) unknown) mmol/L (unknown) (no (unknown) (unknown) Cervical Spine CT (units (unknown) date) (Signed) unknown) (unknown) (no (unknown) (unknown) Chief Complaint: (units (unknown) date) Fall unknown) (unknown) (no (unknown) (unknown) Chloride 102 (units (unknown) date) (98-107) mmol/L unknown) (unknown) (no (unknown) (unknown) Complete Blood (units (unknown) date) Count AUTO DIFF unknown) Stat (unknown) (no (unknown) (unknown) Comprehensive (units ( unknown) date) Metabolic Panel unknown) Stat (unknown) (no (unknown) (unknown) Course (units (unkno wn) date) unknown) (unknown) (no (unknown) (unknown) Creatinine (units (unk nown) date) 1.18 H unknown) (0.52-1.04) mg/dL (unknown) (no (unknown) (unknown) : 1930 (units (unknown) date) Acct:[id number] unknown) (unknown) (no (unknown) (unknown) : 1930 (units (unknown) date) unknown) (unknown) (no (unknown) (unknown) Date of Service: (units (unknown) date) 12/14/21 unknown) (unknown) (no (unknown) (unknown) Departure (units (unkn own) date) unknown) (unknown) (no (unknown) (unknown) Discharge Plan (units (unknown) date) unknown) (unknown) (no (unknown) (unknown) ENT: Nose without (units (unknown) date) bleeding, purulent unknown) drainage. Throat without erythema, (unknown) (no (unknown) (unknown) ER Physician: (units ( unknown) date) Martin Jernigan D.O. unknown) (unknown) (no (unknown) (unknown) EXTREMITIES: (units (u nknown) date) Left hip tender to unknown) palpation, appears to have shortening and (unknown) (no (unknown) (unknown) EYES: Pupils (units (u nknown) date) equal round and unknown) reactive. Extraocular motions intact. No scleral (unknown) (no (unknown) (unknown) Eos # (Auto) (units (u nknown) date) 100 (0-450) /uL unknown) (unknown) (no (unknown) (unknown) Eos % (Auto) (units (u nknown) date) 3.0 (2-4) % unknown) (unknown) (no (unknown) (unknown) Estimated GFR (units ( unknown) date) 44 L (>60) unknown) mL/min (unknown) (no (unknown) (unknown) Exam (units (unkno wn) date) unknown) (unknown) (no (unknown) (unknown) Exam Narrative: (units (unknown) date) unknown) (unknown) (no (unknown) (unknown) FINDINGS: (units (unkn own) date) unknown) (unknown) (no (unknown) (unknown) FINDINGS:? (units (unk nown) date) unknown) (unknown) (no (unknown) (unknown) Salvador Wiley (units (unk nown) date) MD Juma unknown) [Primary Care Provider] - (unknown) (no (unknown) (unknown) GASTROINTESTINAL: (units (unknown) date) Abdomen soft, unknown) non-tender, nondistended. (unknown) (no (unknown) (unknown) GASTROINTESTINAL: (units (unknown) date) Denies nausea, unknown) vomiting, abdominal pain, diarrhea, (unknown) (no (unknown) (unknown) GENERAL: 89[] (units ( unknown) date) year old patient unknown) appears stated age. Well-developed patient, in (unknown) (no (unknown) (unknown) GENERAL: Denies (units (unknown) date) chills, fatigue, unknown) malaise, fever, sweats. (unknown) (no (unknown) (unknown) : Denies (units (unk nown) date) dysuria, unknown) frequency, incontinence, hematuria, urinary retention. (unknown) (no (unknown) (unknown) General (units (unkno wn) date) unknown) (unknown) (no (unknown) (unknown) GenericComposite[ (units (unknown) date) Plt Count 164 unknown) (150-400) X10^3/uL ] (unknown) (no (unknown) (unknown) GenericComposite[ (units (unknown) date) RBC 3.30 L unknown) (4.0-5.2) X10^6/uL ] (unknown) (no (unknown) (unknown) GenericComposite[ (units (unknown) date) WBC 5.0 unknown) (4.5-11.0) X10^3/uL ] (unknown) (no (unknown) (unknown) Globulin 3.2 (units (unknown) date) (1.7-4.1) g/dL unknown) (unknown) (no (unknown) (unknown) Glucose 123 H (units (unknown) date) (80-110) mg/dL unknown) (unknown) (no (unknown) (unknown) HEAD: Atraumatic. (units (unknown) date) Normocephalic. unknown) (unknown) (no (unknown) (unknown) HEENT: Denies (units ( unknown) date) sinus pain, ear unknown) pain, sore throat, difficulty swallowing, (unknown) (no (unknown) (unknown) HPI - Fall (units (unk nown) date) unknown) (unknown) (no (unknown) (unknown) HPI Narrative: (units (unknown) date) unknown) (unknown) (no (unknown) (unknown) Hct 29.3 L (units (u nknown) date) (36-46) % unknown) (unknown) (no (unknown) (unknown) Head CT (Signed) (units (unknown) date) unknown) (unknown) (no (unknown) (unknown) Hgb 10.2 L (units (u nknown) date) (12.0-16.0) g/dL unknown) (unknown) (no (unknown) (unknown) Hip X-Ray (units (unkn own) date) unknown) (unknown) (no (unknown) (unknown) History of (units (unk nown) date) Present Illness unknown) (unknown) (no (unknown) (unknown) IMPRESSION:? (units (u nknown) date) unknown) (unknown) (no (unknown) (unknown) INDICATIONS:? (units ( unknown) date) fall, dementia, unknown) distracting injury (unknown) (no (unknown) (unknown) INDICATIONS:? (units ( unknown) date) fall, distracting unknown) injury, dementia (unknown) (no (unknown) (unknown) Image quality:? (units (unknown) date) Excellent.? unknown) (unknown) (no (unknown) (unknown) Imaging Data (units (u nknown) date) unknown) (unknown) (no (unknown) (unknown) Initial Vital (units ( unknown) date) Signs unknown) (unknown) (no (unknown) (unknown) Initial Vital (units ( unknown) date) Signs: unknown) (unknown) (no (unknown) (unknown) Lab Data (units (unkno wn) date) unknown) (unknown) (no (unknown) (unknown) Labs: (units (unkno wn) date) unknown) (unknown) (no (unknown) (unknown) Loc: ED (units (unkno wn) date) unknown) (unknown) (no (unknown) (unknown) Lymph # (Auto) (units (unknown) date) 700 L unknown) (5517-5432) /uL (unknown) (no (unknown) (unknown) Lymph % (Auto) (units (unknown) date) 14.5 L (25-40) unknown) % (unknown) (no (unknown) (unknown) MCH 30.8 (units (unk nown) date) (26-34) PG unknown) (unknown) (no (unknown) (unknown) MCHC 34.7 (units (un known) date) (30-36) % unknown) (unknown) (no (unknown) (unknown) MCV 88.8 (units (unk nown) date) (80-100) fL unknown) (unknown) (no (unknown) (unknown) MDM - Fall (units (unk nown) date) unknown) (unknown) (no (unknown) (unknown) MR#: [id number] (units (unknown) date) unknown) (unknown) (no (unknown) (unknown) MUSCULOSKELETAL: (units (unknown) date) See HPI unknown) (unknown) (no (unknown) (unknown) [place] # (Auto) (units ( unknown) date) 300 (0-900) /uL unknown) (unknown) (no (unknown) (unknown) [place] % (Auto) (units ( unknown) date) 6.4 (3-14) % unknown) (unknown) (no (unknown) (unknown) Multilevel (units (unkn own) date) degenerative disc unknown) space narrowing and arthropathy in the mid to lower (unknown) (no (unknown) (unknown) NECK: Trachea (units ( unknown) date) midline. Non unknown) tender (unknown) (no (unknown) (unknown) NEURO: AOx3. (units (u nknown) date) unknown) (unknown) (no (unknown) (unknown) NEUROLOGIC: (units (un known) date) Denies weakness, unknown) headache, numbness, change in speech, confusion, (unknown) (no (unknown) (unknown) Narrative (units (unkn own) date) unknown) (unknown) (no (unknown) (unknown) Narrative: (units (unk nown) date) unknown) (unknown) (no (unknown) (unknown) Neut # (Auto) (units ( unknown) date) 3800 (5567-1087) unknown) /uL (unknown) (no (unknown) (unknown) Neut % (Auto) (units ( unknown) date) 75.6 H (50-75) unknown) % (unknown) (no (unknown) (unknown) No Known Drug (units ( unknown) date) Allergies Allergy unknown) Verified 12/14/21 11:05 (unknown) (no (unknown) (unknown) Noncontrast 3 mm (units (unknown) date) thick sections unknown) acquired from the skull base to the T4 level.? (unknown) (no (unknown) (unknown) Noncontrast 4.5 (units (unknown) date) mm thick angled unknown) axial sections acquired from the foramen magnum (unknown) (no (unknown) (unknown) Ordered: (units (unkno wn) date) unknown) (unknown) (no (unknown) (unknown) Ordering (units (unkno wn) date) Provider: unknown) Martin Jernigan D.O. (unknown) (no (unknown) (unknown) Orders (units (unkno wn) date) unknown) (unknown) (no (unknown) (unknown) Oxygen Delivery (units (unknown) date) Method Room Air unknown) (unknown) (no (unknown) (unknown) PROCEDURE:? CT (units (unknown) date) CERVICAL SPINE WO unknown) CON (unknown) (no (unknown) (unknown) PROCEDURE:? CT (units (unknown) date) HEAD/BRAIN WO CON unknown) (unknown) (no (unknown) (unknown) PSYCHIATRIC: No (units (unknown) date) concerning unknown) psychosocial issues. (unknown) (no (unknown) (unknown) Patient: (units (unkno wn) date) Rosa Maria Gdofrey unknown) MR#: [id number] (unknown) (no (unknown) (unknown) Patient: (units (unkno wn) date) Rosa Maria Godfrey unknown) (unknown) (no (unknown) (unknown) [place] CT (units (unkn own) date) unknown) (unknown) (no (unknown) (unknown) Potassium 4.3 (units (unknown) date) (3.4-5.1) mmol/L unknown) (unknown) (no (unknown) (unknown) Procedure: CT (units ( unknown) date) cervical spine wo unknown) con (unknown) (no (unknown) (unknown) Procedure: CT (units ( unknown) date) head/brain wo con unknown) (unknown) (no (unknown) (unknown) Pulse Oximetry (units (unknown) date) 99 12/14/21 unknown) 11:04 (unknown) (no (unknown) (unknown) Pulse Oximetry 94 (units (unknown) date) 99 unknown) (unknown) (no (unknown) (unknown) Pulse Rate 67 (units (unknown) date) 12/14/21 11:04 unknown) (unknown) (no (unknown) (unknown) Pulse Rate 66 67 (units (unknown) date) unknown) (unknown) (no (unknown) (unknown) RDW 12.7 (units (unk nown) date) (11.6-14.8) % unknown) (unknown) (no (unknown) (unknown) RESPIRATORY: Clear (units (unknown) date) to auscultation. unknown) Breath sounds equal bilaterally. No wheezes, (unknown) (no (unknown) (unknown) RESPIRATORY: (units (u nknown) date) Denies dyspnea, unknown) cough, wheezing, hemoptysis, sputum. (unknown) (no (unknown) (unknown) Referrals: (units (unk nown) date) unknown) (unknown) (no (unknown) (unknown) Related Data (units (u nknown) date) unknown) (unknown) (no (unknown) (unknown) Respiratory Rate (units (unknown) date) 18 unknown) (unknown) (no (unknown) (unknown) Result diagrams: (units (unknown) date) unknown) (unknown) (no (unknown) (unknown) Review of Systems (units (unknown) date) unknown) (unknown) (no (unknown) (unknown) SARS-CoV-2 (PCR) (units (unknown) date) Negative unknown) (Negative) (unknown) (no (unknown) (unknown) SKIN: Denies (units (u nknown) date) rash, skin unknown) lesions, or other (unknown) (no (unknown) (unknown) SKIN: No rash or (units (unknown) date) erythema of unknown) visible areas (unknown) (no (unknown) (unknown) Sagittal (units (unkno wn) date) unknown) (unknown) (no (unknown) (unknown) She denies other (units (unknown) date) injury. She has unknown) no chest pain or shortness of breath and (unknown) (no (unknown) (unknown) Signed By: (units (unk nown) date) unknown) (unknown) (no (unknown) (unknown) Sinuses:? (units (unkn own) date) Visualized sinuses unknown) and mastoids are clear.? (unknown) (no (unknown) (unknown) Skull and face:? (units (unknown) date) Calvarium and unknown) visualized facial bones are intact, without (unknown) (no (unknown) (unknown) Sodium 135 L (units (unknown) date) (137-145) mmol/L unknown) (unknown) (no (unknown) (unknown) Soft tissues:? (units (unknown) date) Prevertebral soft unknown) tissues are normal in thickness.? No (unknown) (no (unknown) (unknown) Stated Complaint: (units (unknown) date) Found down with unknown) right hip pain (unknown) (no (unknown) (unknown) TECHNIQUE:? (units (un known) date) unknown) (unknown) (no (unknown) (unknown) Temperature 97 F (units (unknown) date) L unknown) (unknown) (no (unknown) (unknown) Time Seen by (units (u nknown) date) Provider: 12/14/21 unknown) 11:03 (unknown) (no (unknown) (unknown) Total Bilirubin (units (unknown) date) 0.6 (0.2-1.3) unknown) mg/dL (unknown) (no (unknown) (unknown) Total Protein (units ( unknown) date) 6.3 (6.3-8.2) unknown) g/dL (unknown) (no (unknown) (unknown) Ventricles (units (unk nown) date) unknown) (unknown) (no (unknown) (unknown) Vital Signs (units (un known) date) unknown) (unknown) (no (unknown) (unknown) Vital signs: (units (u nknown) date) unknown) (unknown) (no (unknown) (unknown) Queen,Amando (units (u nknown) date) unknown) (unknown) (no (unknown) (unknown) XR hip w pel if (units (unknown) date) done LT 2V Stat unknown) (unknown) (no (unknown) (unknown) [Embedded Image (units (unknown) date) Not Available] unknown) (unknown) (no (unknown) (unknown) activated as a (units ( unknown) date) modified trauma unknown) given her age and suspected left hip injury. She (unknown) (no (unknown) (unknown) and C6-7 (units (unkno wn) date) unknown) (unknown) (no (unknown) (unknown) and coronal (units (un known) date) reformats were unknown) then constructed.? For radiation dose reduction, the (unknown) (no (unknown) (unknown) are normal in (units ( unknown) date) size and shape.? unknown) (unknown) (no (unknown) (unknown) associated (units (unk nown) date) unknown) (unknown) (no (unknown) (unknown) constipation, (units ( unknown) date) melena. unknown) (unknown) (no (unknown) (unknown) denies any (units (unk nown) date) nausea, vomiting unknown) or diarrhea (unknown) (no (unknown) (unknown) dizziness. (units (unk nown) date) unknown) (unknown) (no (unknown) (unknown) external (units (unkno wn) date) rotation, closed, unknown) isolated and neurovascularly intact (unknown) (no (unknown) (unknown) facility by EMS (units (unknown) date) for evaluation of unknown) injury sustained from a fall. She is (unknown) (no (unknown) (unknown) following (units (unkn own) date) unknown) (unknown) (no (unknown) (unknown) hematomas.? No (units (unknown) date) apical unknown) pneumothoraces.? (unknown) (no (unknown) (unknown) icterus. No (units (un known) date) injection or unknown) drainage. (unknown) (no (unknown) (unknown) interface is (units (u nknown) date) normal.? Moderate unknown) cerebral and cerebellar volume loss with (unknown) (no (unknown) (unknown) lesions.? (units (unkn own) date) Bilateral unknown) intraocular lens replacements noted. (unknown) (no (unknown) (unknown) malalignment (units (u nknown) date) unknown) (unknown) (no (unknown) (unknown) matter (units (unkno wn) date) unknown) (unknown) (no (unknown) (unknown) matter chronic (units (unknown) date) ischemic change unknown) noted.? Atherosclerotic calcification noted (unknown) (no (unknown) (unknown) mild distress. (units (unknown) date) Pleasantly unknown) confused, GCS 14 (unknown) (no (unknown) (unknown) multifocal white (units (unknown) date) unknown) (unknown) (no (unknown) (unknown) paravertebral (units ( unknown) date) unknown) (unknown) (no (unknown) (unknown) patient (units (unkno wn) date) unknown) (unknown) (no (unknown) (unknown) range of motion (units (unknown) date) or palpation. She unknown) denies any numbness, tingling or weakness. (unknown) (no (unknown) (unknown) seizures, (units (unkn own) date) incoordination. unknown) (unknown) (no (unknown) (unknown) severe left hip (units (unknown) date) pain. She does unknown) not take anticoagulation. She has pain with (unknown) (no (unknown) (unknown) size.? 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 She denies unknown) any head neck or back pain but complains of (unknown) (no (unknown) (unknown) suspicious (units (unk nown) date) unknown) (unknown) (no (unknown) (unknown) to the (units (unkno wn) date) unknown) (unknown) (no (unknown) (unknown) tonsillar (units (unkn own) date) hypertrophy or unknown) exudate. Airway patent. (unknown) (no (unknown) (unknown) traumatic (units (unkn own) date) unknown) (unknown) (no (unknown) (unknown) vertex, with (units (u nknown) date) coronal and unknown) sagittal reformats.? For radiation dose reduction, the (unknown) (no (unknown) (unknown) was found down (units (unknown) date) this morning by unknown) nursing staff, it is unclear she fell from (unknown) (no (unknown) (unknown) was used:? (units (unk nown) date) automated exposure unknown) control, adjustment of mA and/or kV according to (unknown) (no (unknown) (unknown) with cavernous (units (unknown) date) segments of both unknown) internal carotid arteries. Result panel 11 (unknown) (no (unknown) (unknown) (no value) (units (unk nown) date) unknown) (unknown) (no (unknown) (unknown) Radiologist's (units ( unknown) date) Impression: unknown) (unknown) (no (unknown) (unknown) Date of Service: (units (unknown) date) 12/14/21 unknown) (unknown) (no (unknown) (unknown) (no value) (units (unk nown) date) unknown) (unknown) (no (unknown) (unknown) 12/14/21 12:05 (units (unknown) date) unknown) (unknown) (no (unknown) (unknown) [address] [place] [address] (units (unknown) date) unknown) (unknown) (no (unknown) (unknown) Allergies (units (unkn own) date) unknown) (unknown) (no (unknown) (unknown) [place] (units ( unknown) date) [id number] unknown) (unknown) (no (unknown) (unknown) CT Scan Report (units (unknown) date) unknown) (unknown) (no (unknown) (unknown) Close (units (unkno wn) date) unknown) (unknown) (no (unknown) (unknown) ED Orders (units (unkn own) date) unknown) (unknown) (no (unknown) (unknown) Emergency Report (units (unknown) date) unknown) (unknown) (no (unknown) (unknown) [facility] (units (unknown) date) unknown) (unknown) (no (unknown) (unknown) [facility] (units (unknown) date) [address] unknown) [place] [address] (unknown) (no (unknown) (unknown) Lab Results (units (un known) date) unknown) (unknown) (no (unknown) (unknown) Launch?Image (units (u nknown) date) unknown) (unknown) (no (unknown) (unknown) Signed (units (unkno wn) date) unknown) (unknown) (no (unknown) (unknown) Vital Signs - 8 (units (unknown) date) hr unknown) (unknown) (no (unknown) (unknown) (no value) (units (unk nown) date) unknown) (unknown) (no (unknown) (unknown) 12/14/21 12/14/21 (units (unknown) date) 12/14/21 unknown) Range/Units (unknown) (no (unknown) (unknown) 11:08 12:05 12:05 (units (unknown) date) unknown) (unknown) (no (unknown) (unknown) 12/14/21 (units (unkno wn) date) unknown) (unknown) (no (unknown) (unknown) aorta (units (unkno wn) date) unknown) (unknown) (no (unknown) (unknown) cervical (units (unkno wn) date) unknown) (unknown) (no (unknown) (unknown) iliac (units (unkno wn) date) unknown) (unknown) (no (unknown) (unknown) rales, or (units (unkn own) date) rhonchi. unknown) (unknown) (no (unknown) (unknown) - (units (unkno wn) date) unknown) (unknown) (no (unknown) (unknown) [id number] (units (unkno wn) date) unknown) (unknown) (no (unknown) (unknown) 12/14/21 (units (unkno wn) date) unknown) (unknown) (no (unknown) (unknown) 12/14/21 11:06 (units (unknown) date) unknown) (unknown) (no (unknown) (unknown) 12/14/21 11:08 (units (unknown) date) unknown) (unknown) (no (unknown) (unknown) 12/14/21 11:35 (units (unknown) date) unknown) (unknown) (no (unknown) (unknown) 12/14/21 12:05 (units (unknown) date) unknown) (unknown) (no (unknown) (unknown) 1. Multilevel (units ( unknown) date) degenerative disc unknown) disease and arthropathy without fracture or (unknown) (no (unknown) (unknown) 1. No evidence of (units (unknown) date) fracture or unknown) subluxation in the pelvis. (unknown) (no (unknown) (unknown) 11:04 12/14/21 (units (unknown) date) unknown) (unknown) (no (unknown) (unknown) 11:05 (units (unkno wn) date) unknown) (unknown) (no (unknown) (unknown) 11:05 12/14/21 (units (unknown) date) unknown) (unknown) (no (unknown) (unknown) 12 point review (units (unknown) date) of systems is unknown) negative except for those stated above (unknown) (no (unknown) (unknown) 2. Degenerative (units (unknown) date) sacroiliac and unknown) lower lumbar spine changes results in severe (unknown) (no (unknown) (unknown) 89-year-old (units (un known) date) female nonsmoker unknown) with dementia presents from long-term (unknown) (no (unknown) (unknown) ? (units (unkno wn) date) unknown) (unknown) (no (unknown) (unknown) ALT 17 (<35) (units (unknown) date) IU/L unknown) (unknown) (no (unknown) (unknown) AST 21 (units (unkn own) date) (14-36) IU/L unknown) (unknown) (no (unknown) (unknown) Accession Number: (units (unknown) date) [id number] ?? unknown) (unknown) (no (unknown) (unknown) Accession Number: (units (unknown) date) [id number] ?? unknown) (unknown) (no (unknown) (unknown) Accession Number: (units (unknown) date) [id number] ?? unknown) (unknown) (no (unknown) (unknown) Acct:[id number] (units (unknown) date) unknown) (unknown) (no (unknown) (unknown) After the (units (unkno wn) date) administration of unknown) oral contrast, 5 mm thick sections acquired from the (unknown) (no (unknown) (unknown) Age/Sex: 89 / F (units (unknown) date) unknown) (unknown) (no (unknown) (unknown) Age/Sex: 89 / F (units (unknown) date) unknown) (unknown) (no (unknown) (unknown) Albumin 3.1 L (units (unknown) date) (3.5-5.0) g/dL unknown) (unknown) (no (unknown) (unknown) Albumin/Globulin (units (unknown) date) Ratio 1.0 unknown) (1.0-2.8) (unknown) (no (unknown) (unknown) Alkaline (units (unkno wn) date) Phosphatase 60 unknown) (38-126) U/L (unknown) (no (unknown) (unknown) Allergy/AdvReac (units (unknown) date) Type Severity unknown) Reaction Status Date / Time (unknown) (no (unknown) (unknown) Approved by: Amando (units (unknown) date) Agus Queen on unknown) 12/14/2021 at 11:16? (unknown) (no (unknown) (unknown) Approved by: Amando (units (unknown) date) Agus Queen on unknown) 12/14/2021 at 11:22? (unknown) (no (unknown) (unknown) Approved by: Amando (units (unknown) date) Agus Queen on unknown) 12/14/2021 at 11:31? (unknown) (no (unknown) (unknown) Atrophy and (units (un known) date) chronic ischemic unknown) change without acute hemorrhage or mass effect (unknown) (no (unknown) (unknown) BACK: Nontender (units (unknown) date) without deformity unknown) or crepitance. No flank tenderness. (unknown) (no (unknown) (unknown) BUN 29 H (units (un known) date) (7-17) mg/dL unknown) (unknown) (no (unknown) (unknown) BUN/Creatinine (units (unknown) date) Ratio 24.6 H unknown) (6-22) (unknown) (no (unknown) (unknown) Baso # (Auto) 0 (units (unknown) date) (0-100) /uL unknown) (unknown) (no (unknown) (unknown) Baso % (Auto) (units ( unknown) date) 0.5 (0-2) % unknown) (unknown) (no (unknown) (unknown) Blood Pressure (units (unknown) date) 164/67 H 164/67 H unknown) (unknown) (no (unknown) (unknown) Bones:? No (units (unk nown) date) fractures or unknown) dislocations.? Visualized superior ribs are intact.? (unknown) (no (unknown) (unknown) Bones:? (units (unkno wn) date) Sacroiliac unknown) periarticular sclerosis and anterior marginal osteophytes (unknown) (no (unknown) (unknown) Brain:? No (units (unk nown) date) midline shift.? No unknown) intracranial masses or hemorrhage.? Molina-white (unknown) (no (unknown) (unknown) C4-5, C5-6 (units (unk nown) date) unknown) (unknown) (no (unknown) (unknown) CARDIOVASCULAR: (units (unknown) date) Denies chest pain, unknown) palpitations, orthopnea, edema, (unknown) (no (unknown) (unknown) CARDIOVASCULAR: (units (unknown) date) Regular rate and unknown) rhythm without murmurs, gallops, or rubs. (unknown) (no (unknown) (unknown) COMPARISON:? (units (u nknown) date) [facility], unknown) CR, XR HIP W PEL IF DONE LT 2V, 12/14/2021, 11:20. (unknown) (no (unknown) (unknown) COMPARISON:? (units (u nknown) date) None. unknown) (unknown) (no (unknown) (unknown) COVID19 -Nasal (units (unknown) date) RAPID/Pre-Proc unknown) Stat (unknown) (no (unknown) (unknown) CSF spaces:? (units (u nknown) date) Basal cisterns are unknown) patent.? No extra-axial fluid collections.? (unknown) (no (unknown) (unknown) CT - cervical (units ( unknown) date) spine: unknown) (unknown) (no (unknown) (unknown) CT cervical spine (units (unknown) date) wo con Stat unknown) (unknown) (no (unknown) (unknown) CT head/brain wo (units (unknown) date) con Stat unknown) (unknown) (no (unknown) (unknown) CT pelvis wo con (units (unknown) date) Stat unknown) (unknown) (no (unknown) (unknown) CT scan - (units (unkn own) date) abdomen/pelvis: unknown) (unknown) (no (unknown) (unknown) CT scan - head: (units (unknown) date) unknown) (unknown) (no (unknown) (unknown) Calcium 9.2 (units (unknown) date) (8.4-10.2) mg/dL unknown) (unknown) (no (unknown) (unknown) Carbon Dioxide (units (unknown) date) 28 (22-32) unknown) mmol/L (unknown) (no (unknown) (unknown) Cervical Spine CT (units (unknown) date) (Signed) unknown) (unknown) (no (unknown) (unknown) Chief Complaint: (units (unknown) date) Fall unknown) (unknown) (no (unknown) (unknown) Chloride 102 (units (unknown) date) (98-107) mmol/L unknown) (unknown) (no (unknown) (unknown) Complete Blood (units (unknown) date) Count AUTO DIFF unknown) Stat (unknown) (no (unknown) (unknown) Comprehensive (units ( unknown) date) Metabolic Panel unknown) Stat (unknown) (no (unknown) (unknown) Course (units (unkno wn) date) unknown) (unknown) (no (unknown) (unknown) Creatinine (units (unk nown) date) 1.18 H unknown) (0.52-1.04) mg/dL (unknown) (no (unknown) (unknown) : 1930 (units (unknown) date) Acct:[id number] unknown) (unknown) (no (unknown) (unknown) : 1930 (units (unknown) date) unknown) (unknown) (no (unknown) (unknown) Date of Service: (units (unknown) date) 12/14/21 unknown) (unknown) (no (unknown) (unknown) Degenerative (units (u nknown) date) changes noted unknown) lower lumbar spine associated with severe central (unknown) (no (unknown) (unknown) Departure (units (unkn own) date) unknown) (unknown) (no (unknown) (unknown) Discharge Plan (units (unknown) date) unknown) (unknown) (no (unknown) (unknown) ENT: Nose without (units (unknown) date) bleeding, purulent unknown) drainage. Throat without erythema, (unknown) (no (unknown) (unknown) ER Physician: (units ( unknown) date) Martin Jernigan D.O. unknown) (unknown) (no (unknown) (unknown) EXTREMITIES: (units (u nknown) date) Left hip tender to unknown) palpation, appears to have shortening and (unknown) (no (unknown) (unknown) EYES: Pupils (units (u nknown) date) equal round and unknown) reactive. Extraocular motions intact. No scleral (unknown) (no (unknown) (unknown) Eos # (Auto) (units (u nknown) date) 100 (0-450) /uL unknown) (unknown) (no (unknown) (unknown) Eos % (Auto) (units (u nknown) date) 3.0 (2-4) % unknown) (unknown) (no (unknown) (unknown) Estimated GFR (units ( unknown) date) 44 L (>60) unknown) mL/min (unknown) (no (unknown) (unknown) Exam (units (unkno wn) date) unknown) (unknown) (no (unknown) (unknown) Exam Narrative: (units (unknown) date) unknown) (unknown) (no (unknown) (unknown) FINDINGS: (units (unkn own) date) unknown) (unknown) (no (unknown) (unknown) FINDINGS:? (units (unk nown) date) unknown) (unknown) (no (unknown) (unknown) Salvador Wiley (units (unk nown) date) MD Juma unknown) [Primary Care Provider] - (unknown) (no (unknown) (unknown) GASTROINTESTINAL: (units (unknown) date) Abdomen soft, unknown) non-tender, nondistended. (unknown) (no (unknown) (unknown) GASTROINTESTINAL: (units (unknown) date) Denies nausea, unknown) vomiting, abdominal pain, diarrhea, (unknown) (no (unknown) (unknown) GENERAL: 89[] (units ( unknown) date) year old patient unknown) appears stated age. Well-developed patient, in (unknown) (no (unknown) (unknown) GENERAL: Denies (units (unknown) date) chills, fatigue, unknown) malaise, fever, sweats. (unknown) (no (unknown) (unknown) : Denies (units (unk nown) date) dysuria, unknown) frequency, incontinence, hematuria, urinary retention. (unknown) (no (unknown) (unknown) General (units (unkno wn) date) unknown) (unknown) (no (unknown) (unknown) GenericComposite[ (units (unknown) date) Plt Count 164 unknown) (150-400) X10^3/uL ] (unknown) (no (unknown) (unknown) GenericComposite[ (units (unknown) date) RBC 3.30 L unknown) (4.0-5.2) X10^6/uL ] (unknown) (no (unknown) (unknown) GenericComposite[ (units (unknown) date) WBC 5.0 unknown) (4.5-11.0) X10^3/uL ] (unknown) (no (unknown) (unknown) Genitourinary:? (units (unknown) date) Bladder wall unknown) thickness is normal.? (unknown) (no (unknown) (unknown) Globulin 3.2 (units (unknown) date) (1.7-4.1) g/dL unknown) (unknown) (no (unknown) (unknown) Glucose 123 H (units (unknown) date) (80-110) mg/dL unknown) (unknown) (no (unknown) (unknown) HEAD: Atraumatic. (units (unknown) date) Normocephalic. unknown) (unknown) (no (unknown) (unknown) HEENT: Denies (units ( unknown) date) sinus pain, ear unknown) pain, sore throat, difficulty swallowing, (unknown) (no (unknown) (unknown) HPI - Fall (units (unk nown) date) unknown) (unknown) (no (unknown) (unknown) HPI Narrative: (units (unknown) date) unknown) (unknown) (no (unknown) (unknown) Hct 29.3 L (units (u nknown) date) (36-46) % unknown) (unknown) (no (unknown) (unknown) Head CT (Signed) (units (unknown) date) unknown) (unknown) (no (unknown) (unknown) Hgb 10.2 L (units (u nknown) date) (12.0-16.0) g/dL unknown) (unknown) (no (unknown) (unknown) Hip X-Ray (units (unkn own) date) unknown) (unknown) (no (unknown) (unknown) History of (units (unk nown) date) Present Illness unknown) (unknown) (no (unknown) (unknown) IMPRESSION:? (units (u nknown) date) unknown) (unknown) (no (unknown) (unknown) INDICATIONS:? (units ( unknown) date) fall, dementia, unknown) distracting injury (unknown) (no (unknown) (unknown) INDICATIONS:? (units ( unknown) date) fall, distracting unknown) injury, dementia (unknown) (no (unknown) (unknown) INDICATIONS:? (units ( unknown) date) left hip pain, fal unknown) (unknown) (no (unknown) (unknown) Iliac (units (unkno wn) date) unknown) (unknown) (no (unknown) (unknown) Image quality:? (units (unknown) date) Excellent.? unknown) (unknown) (no (unknown) (unknown) Imaging Data (units (u nknown) date) unknown) (unknown) (no (unknown) (unknown) Initial Vital (units ( unknown) date) Signs unknown) (unknown) (no (unknown) (unknown) Initial Vital (units ( unknown) date) Signs: unknown) (unknown) (no (unknown) (unknown) L4-5.? Both (units (un known) date) proximal femurs unknown) are intact without fracture.? Pelvic ring intact as (unknown) (no (unknown) (unknown) Lab Data (units (unkno wn) date) unknown) (unknown) (no (unknown) (unknown) Labs: (units (unkno wn) date) unknown) (unknown) (no (unknown) (unknown) Loc: ED (units (unkno wn) date) unknown) (unknown) (no (unknown) (unknown) Lymph # (Auto) (units (unknown) date) 700 L unknown) (7207-2541) /uL (unknown) (no (unknown) (unknown) Lymph % (Auto) (units (unknown) date) 14.5 L (25-40) unknown) % (unknown) (no (unknown) (unknown) MCH 30.8 (units (unk nown) date) (26-34) PG unknown) (unknown) (no (unknown) (unknown) MCHC 34.7 (units (un known) date) (30-36) % unknown) (unknown) (no (unknown) (unknown) MCV 88.8 (units (unk nown) date) (80-100) fL unknown) (unknown) (no (unknown) (unknown) MDM - Fall (units (unk nown) date) unknown) (unknown) (no (unknown) (unknown) MR#: [id number] (units (unknown) date) unknown) (unknown) (no (unknown) (unknown) MUSCULOSKELETAL: (units (unknown) date) See HPI unknown) (unknown) (no (unknown) (unknown) Miscellaneous:? (units (unknown) date) No inguinal unknown) hernias.? (unknown) (no (unknown) (unknown) Zavala # (Auto) (units ( unknown) date) 300 (0-900) /uL unknown) (unknown) (no (unknown) (unknown) Zavala % (Auto) (units ( unknown) date) 6.4 (3-14) % unknown) (unknown) (no (unknown) (unknown) Multilevel (units (unkn own) date) degenerative disc unknown) space narrowing and arthropathy in the mid to lower (unknown) (no (unknown) (unknown) NECK: Trachea (units ( unknown) date) midline. Non unknown) tender (unknown) (no (unknown) (unknown) NEURO: AOx3. (units (u nknown) date) unknown) (unknown) (no (unknown) (unknown) NEUROLOGIC: (units (un known) date) Denies weakness, unknown) headache, numbness, change in speech, confusion, (unknown) (no (unknown) (unknown) Narrative (units (unkn own) date) unknown) (unknown) (no (unknown) (unknown) Narrative: (units (unk nown) date) unknown) (unknown) (no (unknown) (unknown) Neut # (Auto) (units ( unknown) date) 3800 (1830-3972) unknown) /uL (unknown) (no (unknown) (unknown) Neut % (Auto) (units ( unknown) date) 75.6 H (50-75) unknown) % (unknown) (no (unknown) (unknown) No Known Drug (units ( unknown) date) Allergies Allergy unknown) Verified 12/14/21 11:05 (unknown) (no (unknown) (unknown) Nodes and (units (unkn own) date) vessels:? No unknown) iliac, pelvic, or inguinal adenopathy by size criteria.? (unknown) (no (unknown) (unknown) Noncontrast 3 mm (units (unknown) date) thick sections unknown) acquired from the skull base to the T4 level.? (unknown) (no (unknown) (unknown) Noncontrast 4.5 (units (unknown) date) mm thick angled unknown) axial sections acquired from the foramen magnum (unknown) (no (unknown) (unknown) Ordered: (units (unkno wn) date) unknown) (unknown) (no (unknown) (unknown) Ordering (units (unkno wn) date) Provider: unknown) Martin Jernigan D.O. (unknown) (no (unknown) (unknown) Orders (units (unkno wn) date) unknown) (unknown) (no (unknown) (unknown) Oxygen Delivery (units (unknown) date) Method Room Air unknown) (unknown) (no (unknown) (unknown) PROCEDURE:? CT (units (unknown) date) CERVICAL SPINE WO unknown) CON (unknown) (no (unknown) (unknown) PROCEDURE:? CT (units (unknown) date) HEAD/BRAIN WO CON unknown) (unknown) (no (unknown) (unknown) PROCEDURE:? CT (units (unknown) date) PEL WO CON unknown) (unknown) (no (unknown) (unknown) PSYCHIATRIC: No (units (unknown) date) concerning unknown) psychosocial issues. (unknown) (no (unknown) (unknown) Patient: (units (unkno wn) date) Rosa Maria Godfrey unknown) MR#: [id number] (unknown) (no (unknown) (unknown) Patient: (units (unkno wn) date) Rosa Maria Godfrey unknown) (unknown) (no (unknown) (unknown) Pelvis CT (units (unkn own) date) unknown) (unknown) (no (unknown) (unknown) Peritoneum and (units (unknown) date) bowel:? Bowel unknown) loops demonstrate normal wall thickness and (unknown) (no (unknown) (unknown) Potassium 4.3 (units (unknown) date) (3.4-5.1) mmol/L unknown) (unknown) (no (unknown) (unknown) Procedure: CT (units ( unknown) date) cervical spine wo unknown) con (unknown) (no (unknown) (unknown) Procedure: CT (units ( unknown) date) head/brain wo con unknown) (unknown) (no (unknown) (unknown) Procedure: CT (units ( unknown) date) pelvis wo con unknown) (unknown) (no (unknown) (unknown) Pulse Oximetry (units (unknown) date) 99 12/14/21 unknown) 11:04 (unknown) (no (unknown) (unknown) Pulse Oximetry 94 (units (unknown) date) 99 unknown) (unknown) (no (unknown) (unknown) Pulse Rate 67 (units (unknown) date) 12/14/21 11:04 unknown) (unknown) (no (unknown) (unknown) Pulse Rate 66 67 (units (unknown) date) unknown) (unknown) (no (unknown) (unknown) RDW 12.7 (units (unk nown) date) (11.6-14.8) % unknown) (unknown) (no (unknown) (unknown) RESPIRATORY: Clear (units (unknown) date) to auscultation. unknown) Breath sounds equal bilaterally. No wheezes, (unknown) (no (unknown) (unknown) RESPIRATORY: (units (u nknown) date) Denies dyspnea, unknown) cough, wheezing, hemoptysis, sputum. (unknown) (no (unknown) (unknown) Referrals: (units (unk nown) date) unknown) (unknown) (no (unknown) (unknown) Related Data (units (u nknown) date) unknown) (unknown) (no (unknown) (unknown) Respiratory Rate (units (unknown) date) 18 unknown) (unknown) (no (unknown) (unknown) Result diagrams: (units (unknown) date) unknown) (unknown) (no (unknown) (unknown) Review of Systems (units (unknown) date) unknown) (unknown) (no (unknown) (unknown) SARS-CoV-2 (PCR) (units (unknown) date) Negative unknown) (Negative) (unknown) (no (unknown) (unknown) SKIN: Denies (units (u nknown) date) rash, skin unknown) lesions, or other (unknown) (no (unknown) (unknown) SKIN: No rash or (units (unknown) date) erythema of unknown) visible areas (unknown) (no (unknown) (unknown) Sagittal (units (unkno wn) date) unknown) (unknown) (no (unknown) (unknown) She denies other (units (unknown) date) injury. She has unknown) no chest pain or shortness of breath and (unknown) (no (unknown) (unknown) Signed By: (units (unk nown) date) unknown) (unknown) (no (unknown) (unknown) Sinuses:? (units (unkn own) date) Visualized sinuses unknown) and mastoids are clear.? (unknown) (no (unknown) (unknown) Skull and face:? (units (unknown) date) Calvarium and unknown) visualized facial bones are intact, without (unknown) (no (unknown) (unknown) Sodium 135 L (units (unknown) date) (137-145) mmol/L unknown) (unknown) (no (unknown) (unknown) Soft tissues:? (units (unknown) date) Prevertebral soft unknown) tissues are normal in thickness.? No (unknown) (no (unknown) (unknown) Stated Complaint: (units (unknown) date) Found down with unknown) right hip pain (unknown) (no (unknown) (unknown) TECHNIQUE:? (units (un known) date) unknown) (unknown) (no (unknown) (unknown) Temperature 97 F (units (unknown) date) L unknown) (unknown) (no (unknown) (unknown) Time Seen by (units (u nknown) date) Provider: 12/14/21 unknown) 11:03 (unknown) (no (unknown) (unknown) Total Bilirubin (units (unknown) date) 0.6 (0.2-1.3) unknown) mg/dL (unknown) (no (unknown) (unknown) Total Protein (units ( unknown) date) 6.3 (6.3-8.2) unknown) g/dL (unknown) (no (unknown) (unknown) Ventricles (units (unk nown) date) unknown) (unknown) (no (unknown) (unknown) Vital Signs (units (un known) date) unknown) (unknown) (no (unknown) (unknown) Vital signs: (units (u nknown) date) unknown) (unknown) (no (unknown) (unknown) Queen,Amando (units (u nknown) date) unknown) (unknown) (no (unknown) (unknown) XR hip w pel if (units (unknown) date) done LT 2V Stat unknown) (unknown) (no (unknown) (unknown) [Embedded Image (units (unknown) date) Not Available] unknown) (unknown) (no (unknown) (unknown) activated as a (units ( unknown) date) modified trauma unknown) given her age and suspected left hip injury. She (unknown) (no (unknown) (unknown) adjustment (units (unk nown) date) unknown) (unknown) (no (unknown) (unknown) and C6-7 (units (unkno wn) date) unknown) (unknown) (no (unknown) (unknown) and coronal (units (un known) date) reformats were unknown) then constructed.? For radiation dose reduction, the (unknown) (no (unknown) (unknown) are normal in (units ( unknown) date) size and shape.? unknown) (unknown) (no (unknown) (unknown) associated (units (unk nown) date) unknown) (unknown) (no (unknown) (unknown) caliber.? No (units (u nknown) date) unknown) (unknown) (no (unknown) (unknown) central (units (unkno wn) date) unknown) (unknown) (no (unknown) (unknown) constipation, (units ( unknown) date) melena. unknown) (unknown) (no (unknown) (unknown) crests to the (units ( unknown) date) symphysis.? 5 mm unknown) coronal and sagittal reformats were then (unknown) (no (unknown) (unknown) denies any (units (unk nown) date) nausea, vomiting unknown) or diarrhea (unknown) (no (unknown) (unknown) dizziness. (units (unk nown) date) unknown) (unknown) (no (unknown) (unknown) external (units (unkno wn) date) rotation, closed, unknown) isolated and neurovascularly intact (unknown) (no (unknown) (unknown) facility by EMS (units (unknown) date) for evaluation of unknown) injury sustained from a fall. She is (unknown) (no (unknown) (unknown) following (units (unkn own) date) unknown) (unknown) (no (unknown) (unknown) free fluid or (units ( unknown) date) air.? unknown) (unknown) (no (unknown) (unknown) hematomas.? No (units (unknown) date) apical unknown) pneumothoraces.? (unknown) (no (unknown) (unknown) icterus. No (units (un known) date) injection or unknown) drainage. (unknown) (no (unknown) (unknown) interface is (units (u nknown) date) normal.? Moderate unknown) cerebral and cerebellar volume loss with (unknown) (no (unknown) (unknown) lesions.? (units (unkn own) date) Bilateral unknown) intraocular lens replacements noted. (unknown) (no (unknown) (unknown) malalignment (units (u nknown) date) unknown) (unknown) (no (unknown) (unknown) matter (units (unkno wn) date) unknown) (unknown) (no (unknown) (unknown) matter chronic (units (unknown) date) ischemic change unknown) noted.? Atherosclerotic calcification noted (unknown) (no (unknown) (unknown) mild distress. (units (unknown) date) Pleasantly unknown) confused, GCS 14 (unknown) (no (unknown) (unknown) multifocal white (units (unknown) date) unknown) (unknown) (no (unknown) (unknown) noted without (units ( unknown) date) evidence of unknown) aneurysm. (unknown) (no (unknown) (unknown) of mA and/or kV (units (unknown) date) according to unknown) patient size.? (unknown) (no (unknown) (unknown) paravertebral (units ( unknown) date) unknown) (unknown) (no (unknown) (unknown) patient (units (unkno wn) date) unknown) (unknown) (no (unknown) (unknown) performed.? For (units (unknown) date) unknown) (unknown) (no (unknown) (unknown) present.? (units (unkn own) date) unknown) (unknown) (no (unknown) (unknown) radiation dose (units (unknown) date) reduction, the unknown) following was used:? automated exposure control, (unknown) (no (unknown) (unknown) range of motion (units (unknown) date) or palpation. She unknown) denies any numbness, tingling or weakness. (unknown) (no (unknown) (unknown) seizures, (units (unkn own) date) incoordination. unknown) (unknown) (no (unknown) (unknown) severe left hip (units (unknown) date) pain. She does unknown) not take anticoagulation. She has pain with (unknown) (no (unknown) (unknown) size.? 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 She denies unknown) any head neck or back pain but complains of (unknown) (no (unknown) (unknown) stenosis at (units (un known) date) unknown) (unknown) (no (unknown) (unknown) stenosis at L4-5 (units (unknown) date) unknown) (unknown) (no (unknown) (unknown) suspicious (units (unk nown) date) unknown) (unknown) (no (unknown) (unknown) to the (units (unkno wn) date) unknown) (unknown) (no (unknown) (unknown) tonsillar (units (unkn own) date) hypertrophy or unknown) exudate. Airway patent. (unknown) (no (unknown) (unknown) traumatic (units (unkn own) date) unknown) (unknown) (no (unknown) (unknown) vertex, with (units (u nknown) date) coronal and unknown) sagittal reformats.? For radiation dose reduction, the (unknown) (no (unknown) (unknown) vessels (units (unkno wn) date) demonstrate normal unknown) size.? Atherosclerotic calcification in the abdominal (unknown) (no (unknown) (unknown) was found down (units (unknown) date) this morning by unknown) nursing staff, it is unclear she fell from (unknown) (no (unknown) (unknown) was used:? (units (unk nown) date) automated exposure unknown) control, adjustment of mA and/or kV according to (unknown) (no (unknown) (unknown) well. (units (unkno wn) date) unknown) (unknown) (no (unknown) (unknown) with cavernous (units (unknown) date) segments of both unknown) internal carotid arteries. Result panel 12 (unknown) (no (unknown) (unknown) (no value) (units (unk nown) date) unknown) (unknown) (no (unknown) (unknown) Radiologist's (units ( unknown) date) Impression: unknown) (unknown) (no (unknown) (unknown) *Please continue (units (unknown) date) to take your unknown) regular medications as directed. (unknown) (no (unknown) (unknown) Date of Service: (units (unknown) date) 12/14/21 unknown) (unknown) (no (unknown) (unknown) (no value) (units (unk nown) date) unknown) (unknown) (no (unknown) (unknown) <Electronically (units (unknown) date) signed by Martin unknownJackelyn Jernigan D.O.> (unknown) (no (unknown) (unknown) 12/14/21 12:05 (units (unknown) date) unknown) (unknown) (no (unknown) (unknown) 12/15/21 0727 (units ( unknown) date) unknown) (unknown) (no (unknown) (unknown) [address] [place] [address] (units (unknown) date) unknown) (unknown) (no (unknown) (unknown) Allergies (units (unkn own) date) unknown) (unknown) (no (unknown) (unknown) IJEOMA Goldstein (units ( unknown) date) [id number] unknown) (unknown) (no (unknown) (unknown) CT Scan Report (units (unknown) date) unknown) (unknown) (no (unknown) (unknown) Close (units (unkno wn) date) unknown) (unknown) (no (unknown) (unknown) ED Orders (units (unkn own) date) unknown) (unknown) (no (unknown) (unknown) Emergency Report (units (unknown) date) unknown) (unknown) (no (unknown) (unknown) [facility] (units (unknown) date) unknown) (unknown) (no (unknown) (unknown) [facility] (units (unknown) date) [address] [place] [address] unknown) [place] [address] (unknown) (no (unknown) (unknown) Lab Results (units (un known) date) unknown) (unknown) (no (unknown) (unknown) Launch?Image (units (u nknown) date) unknown) (unknown) (no (unknown) (unknown) Signed (units (unkno wn) date) unknown) (unknown) (no (unknown) (unknown) Urine Dip (units (unkn own) date) unknown) (unknown) (no (unknown) (unknown) Vital Signs - 8 (units (unknown) date) hr unknown) (unknown) (no (unknown) (unknown) [ ] New (units (unkno wn) date) medication unknown) prescriptions sent to your pharmacy: [ ] (unknown) (no (unknown) (unknown) [ ] New (units (unkno wn) date) medication written unknown) as a paper prescription (unknown) (no (unknown) (unknown) [x ] No new (units (un known) date) medications given unknown) (unknown) (no (unknown) (unknown) (no value) (units (unk nown) date) unknown) (unknown) (no (unknown) (unknown) 12/14/21 12/14/21 (units (unknown) date) 12/14/21 unknown) Range/Units (unknown) (no (unknown) (unknown) 11:08 12:05 12:05 (units (unknown) date) unknown) (unknown) (no (unknown) (unknown) 12/14/21 (units (unkno wn) date) unknown) (unknown) (no (unknown) (unknown) Encounter type: (units (unknown) date) initial encounter unknown) Laterality: left Qualified Code(s): S70.02XA (unknown) (no (unknown) (unknown) No evidence of (units (unknown) date) significant unknown) injury, pain well controlled. Return precautions (unknown) (no (unknown) (unknown) aorta (units (unkno wn) date) unknown) (unknown) (no (unknown) (unknown) cervical (units (unkno wn) date) unknown) (unknown) (no (unknown) (unknown) iliac (units (unkno wn) date) unknown) (unknown) (no (unknown) (unknown) pelvis and hip (units (unknown) date) are unremarkable. unknown) She is ambulatory at what is perceived to be (unknown) (no (unknown) (unknown) rales, or (units (unkn own) date) rhonchi. unknown) (unknown) (no (unknown) (unknown) *If you do not (units (unknown) date) have a primary unknown) care provider please contact the [facility] (unknown) (no (unknown) (unknown) *Please follow up (units (unknown) date) with your primary unknown) care provider in 2-3 days, call for an (unknown) (no (unknown) (unknown) *Return to (units (unk nown) date) Emergency unknown) Department if you should have any new, worsening or (unknown) (no (unknown) (unknown) *What to do: (units (u nknown) date) unknown) (unknown) (no (unknown) (unknown) *You have been (units (unknown) date) diagnosed with unknown) [fall with hip contusion. As we discussed labs (unknown) (no (unknown) (unknown) - (units (unkno wn) date) unknown) (unknown) (no (unknown) (unknown) - Contusion of (units (unknown) date) left hip, initial unknown) encounter (unknown) (no (unknown) (unknown) [id number] (units (unkno wn) date) unknown) (unknown) (no (unknown) (unknown) 12/14/21 (units (unkno wn) date) unknown) (unknown) (no (unknown) (unknown) 12/14/21 11:06 (units (unknown) date) unknown) (unknown) (no (unknown) (unknown) 12/14/21 11:08 (units (unknown) date) unknown) (unknown) (no (unknown) (unknown) 12/14/21 11:35 (units (unknown) date) unknown) (unknown) (no (unknown) (unknown) 12/14/21 12:05 (units (unknown) date) unknown) (unknown) (no (unknown) (unknown) 1. Multilevel (units ( unknown) date) degenerative disc unknown) disease and arthropathy without fracture or (unknown) (no (unknown) (unknown) 1. No evidence of (units (unknown) date) fracture or unknown) subluxation in the pelvis. (unknown) (no (unknown) (unknown) 11:04 12/14/21 (units (unknown) date) unknown) (unknown) (no (unknown) (unknown) 11:05 (units (unkno wn) date) unknown) (unknown) (no (unknown) (unknown) 11:05 12/14/21 (units (unknown) date) unknown) (unknown) (no (unknown) (unknown) 12 point review (units (unknown) date) of systems is unknown) negative except for those stated above (unknown) (no (unknown) (unknown) 2. Degenerative (units (unknown) date) sacroiliac and unknown) lower lumbar spine changes results in severe (unknown) (no (unknown) (unknown) 89-year-old (units (un known) date) female nonsmoker unknown) with dementia presents from long-term (unknown) (no (unknown) (unknown) ? (units (unkno wn) date) unknown) (unknown) (no (unknown) (unknown) ALT 17 (<35) (units (unknown) date) IU/L unknown) (unknown) (no (unknown) (unknown) AST 21 (units (unkn own) date) (14-36) IU/L unknown) (unknown) (no (unknown) (unknown) Accession Number: (units (unknown) date) [id number] ?? unknown) (unknown) (no (unknown) (unknown) Accession Number: (units (unknown) date) [id number] ?? unknown) (unknown) (no (unknown) (unknown) Accession Number: (units (unknown) date) [id number] ?? unknown) (unknown) (no (unknown) (unknown) Acct:[id number] (units (unknown) date) unknown) (unknown) (no (unknown) (unknown) Activity (units (unkno wn) date) Restrictions/Addit unknown) ional Instructions: (unknown) (no (unknown) (unknown) After the (units (unkno wn) date) administration of unknown) oral contrast, 5 mm thick sections acquired from the (unknown) (no (unknown) (unknown) Age/Sex: 89 / F (units (unknown) date) unknown) (unknown) (no (unknown) (unknown) Age/Sex: 89 / F (units (unknown) date) unknown) (unknown) (no (unknown) (unknown) Albumin 3.1 L (units (unknown) date) (3.5-5.0) g/dL unknown) (unknown) (no (unknown) (unknown) Albumin/Globulin (units (unknown) date) Ratio 1.0 unknown) (1.0-2.8) (unknown) (no (unknown) (unknown) Alkaline (units (unkno wn) date) Phosphatase 60 unknown) (38-126) U/L (unknown) (no (unknown) (unknown) Allergy/AdvReac (units (unknown) date) Type Severity unknown) Reaction Status Date / Time (unknown) (no (unknown) (unknown) Approved by: Amando (units (unknown) date) Agus Queen on unknown) 12/14/2021 at 11:16? (unknown) (no (unknown) (unknown) Approved by: Amando (units (unknown) date) Agus Queen on unknown) 12/14/2021 at 11:22? (unknown) (no (unknown) (unknown) Approved by: Amando (units (unknown) date) Agus Queen on unknown) 12/14/2021 at 11:31? (unknown) (no (unknown) (unknown) Atrophy and (units (un known) date) chronic ischemic unknown) change without acute hemorrhage or mass effect (unknown) (no (unknown) (unknown) BACK: Nontender (units (unknown) date) without deformity unknown) or crepitance. No flank tenderness. (unknown) (no (unknown) (unknown) BUN 29 H (units (un known) date) (7-17) mg/dL unknown) (unknown) (no (unknown) (unknown) BUN/Creatinine (units (unknown) date) Ratio 24.6 H unknown) (6-22) (unknown) (no (unknown) (unknown) Baso # (Auto) 0 (units (unknown) date) (0-100) /uL unknown) (unknown) (no (unknown) (unknown) Baso % (Auto) (units ( unknown) date) 0.5 (0-2) % unknown) (unknown) (no (unknown) (unknown) Bedside Urine (units ( unknown) date) Bilirubin - unknown) Negative (unknown) (no (unknown) (unknown) Bedside Urine (units ( unknown) date) Glucose unknown) Negative (unknown) (no (unknown) (unknown) Bedside Urine (units ( unknown) date) Ketone - unknown) Negative (unknown) (no (unknown) (unknown) Bedside Urine (units ( unknown) date) Leukocytes - unknown) Negative (unknown) (no (unknown) (unknown) Bedside Urine (units ( unknown) date) Nitrite - unknown) Negative (unknown) (no (unknown) (unknown) Bedside Urine (units ( unknown) date) Occult Blood - unknown) Negative (unknown) (no (unknown) (unknown) Bedside Urine (units ( unknown) date) Protein - unknown) Negative (unknown) (no (unknown) (unknown) Bedside Urine (units ( unknown) date) Urobilinogen - unknown) Negative (unknown) (no (unknown) (unknown) Bedside Urine pH (units (unknown) date) 5.5 unknown) (unknown) (no (unknown) (unknown) Blood Pressure (units (unknown) date) 164/67 H 164/67 H unknown) (unknown) (no (unknown) (unknown) Bones:? No (units (unk nown) date) fractures or unknown) dislocations.? Visualized superior ribs are intact.? (unknown) (no (unknown) (unknown) Bones:? (units (unkno wn) date) Sacroiliac unknown) periarticular sclerosis and anterior marginal osteophytes (unknown) (no (unknown) (unknown) Brain:? No (units (unk nown) date) midline shift.? No unknown) intracranial masses or hemorrhage.? Molina-white (unknown) (no (unknown) (unknown) C4-5, C5-6 (units (unk nown) date) unknown) (unknown) (no (unknown) (unknown) CARDIOVASCULAR: (units (unknown) date) Denies chest pain, unknown) palpitations, orthopnea, edema, (unknown) (no (unknown) (unknown) CARDIOVASCULAR: (units (unknown) date) Regular rate and unknown) rhythm without murmurs, gallops, or rubs. (unknown) (no (unknown) (unknown) COMPARISON:? (units (u nknown) date) [facility], unknown) CR, XR HIP W PEL IF DONE LT 2V, 12/14/2021, 11:20. (unknown) (no (unknown) (unknown) COMPARISON:? (units (u nknown) date) None. unknown) (unknown) (no (unknown) (unknown) COVID19 -Nasal (units (unknown) date) RAPID/Pre-Proc unknown) Stat (unknown) (no (unknown) (unknown) CSF spaces:? (units (u nknown) date) Basal cisterns are unknown) patent.? No extra-axial fluid collections.? (unknown) (no (unknown) (unknown) CT - cervical (units ( unknown) date) spine: unknown) (unknown) (no (unknown) (unknown) CT cervical spine (units (unknown) date) wo con Stat unknown) (unknown) (no (unknown) (unknown) CT head/brain wo (units (unknown) date) con Stat unknown) (unknown) (no (unknown) (unknown) CT pelvis wo con (units (unknown) date) Stat unknown) (unknown) (no (unknown) (unknown) CT scan - (units (unkn own) date) abdomen/pelvis: unknown) (unknown) (no (unknown) (unknown) CT scan - head: (units (unknown) date) unknown) (unknown) (no (unknown) (unknown) Calcium 9.2 (units (unknown) date) (8.4-10.2) mg/dL unknown) (unknown) (no (unknown) (unknown) Carbon Dioxide (units (unknown) date) 28 (22-32) unknown) mmol/L (unknown) (no (unknown) (unknown) Cervical Spine CT (units (unknown) date) (Signed) unknown) (unknown) (no (unknown) (unknown) Chief Complaint: (units (unknown) date) Fall unknown) (unknown) (no (unknown) (unknown) Chloride 102 (units (unknown) date) (98-107) mmol/L unknown) (unknown) (no (unknown) (unknown) Clinical (units (unkno wn) date) Impression: unknown) (unknown) (no (unknown) (unknown) Complete Blood (units (unknown) date) Count AUTO DIFF unknown) Stat (unknown) (no (unknown) (unknown) Comprehensive (units ( unknown) date) Metabolic Panel unknown) Stat (unknown) (no (unknown) (unknown) Contusion of hip (units (unknown) date) unknown) (unknown) (no (unknown) (unknown) Course (units (unkno wn) date) unknown) (unknown) (no (unknown) (unknown) Creatinine (units (unk nown) date) 1.18 H unknown) (0.52-1.04) mg/dL (unknown) (no (unknown) (unknown) : 1930 (units (unknown) date) Acct:[id number] unknown) (unknown) (no (unknown) (unknown) : 1930 (units (unknown) date) unknown) (unknown) (no (unknown) (unknown) Date of Service: (units (unknown) date) 12/14/21 unknown) (unknown) (no (unknown) (unknown) Degenerative (units (u nknown) date) changes noted unknown) lower lumbar spine associated with severe central (unknown) (no (unknown) (unknown) Departure (units (unkn own) date) unknown) (unknown) (no (unknown) (unknown) Discharge Plan (units (unknown) date) unknown) (unknown) (no (unknown) (unknown) ENT: Nose without (units (unknown) date) bleeding, purulent unknown) drainage. Throat without erythema, (unknown) (no (unknown) (unknown) ER Physician: (units ( unknown) date) Martin Jernigan D.O. unknown) (unknown) (no (unknown) (unknown) EXTREMITIES: (units (u nknown) date) Left hip tender to unknown) palpation, appears to have shortening and (unknown) (no (unknown) (unknown) EYES: Pupils (units (u nknown) date) equal round and unknown) reactive. Extraocular motions intact. No scleral (unknown) (no (unknown) (unknown) Eos # (Auto) (units (u nknown) date) 100 (0-450) /uL unknown) (unknown) (no (unknown) (unknown) Eos % (Auto) (units (u nknown) date) 3.0 (2-4) % unknown) (unknown) (no (unknown) (unknown) Esterase (units (unkno wn) date) unknown) (unknown) (no (unknown) (unknown) Estimated GFR (units ( unknown) date) 44 L (>60) unknown) mL/min (unknown) (no (unknown) (unknown) Exam (units (unkno wn) date) unknown) (unknown) (no (unknown) (unknown) Exam Narrative: (units (unknown) date) unknown) (unknown) (no (unknown) (unknown) FINDINGS: (units (unkn own) date) unknown) (unknown) (no (unknown) (unknown) FINDINGS:? (units (unk nown) date) unknown) (unknown) (no (unknown) (unknown) Salvador Wiley (units (unk nown) date) MD Juma unknown) [Primary Care Provider] - (unknown) (no (unknown) (unknown) GASTROINTESTINAL: (units (unknown) date) Abdomen soft, unknown) non-tender, nondistended. (unknown) (no (unknown) (unknown) GASTROINTESTINAL: (units (unknown) date) Denies nausea, unknown) vomiting, abdominal pain, diarrhea, (unknown) (no (unknown) (unknown) GENERAL: 89[] (units ( unknown) date) year old patient unknown) appears stated age. Well-developed patient, in (unknown) (no (unknown) (unknown) GENERAL: Denies (units (unknown) date) chills, fatigue, unknown) malaise, fever, sweats. (unknown) (no (unknown) (unknown) : Denies (units (unk nown) date) dysuria, unknown) frequency, incontinence, hematuria, urinary retention. (unknown) (no (unknown) (unknown) General (units (unkno wn) date) unknown) (unknown) (no (unknown) (unknown) GenericComposite[ (units (unknown) date) Plt Count 164 unknown) (150-400) X10^3/uL ] (unknown) (no (unknown) (unknown) GenericComposite[ (units (unknown) date) RBC 3.30 L unknown) (4.0-5.2) X10^6/uL ] (unknown) (no (unknown) (unknown) GenericComposite[ (units (unknown) date) WBC 5.0 unknown) (4.5-11.0) X10^3/uL ] (unknown) (no (unknown) (unknown) Genitourinary:? (units (unknown) date) Bladder wall unknown) thickness is normal.? (unknown) (no (unknown) (unknown) Globulin 3.2 (units (unknown) date) (1.7-4.1) g/dL unknown) (unknown) (no (unknown) (unknown) Glucose 123 H (units (unknown) date) (80-110) mg/dL unknown) (unknown) (no (unknown) (unknown) HEAD: Atraumatic. (units (unknown) date) Normocephalic. unknown) (unknown) (no (unknown) (unknown) HEENT: Denies (units ( unknown) date) sinus pain, ear unknown) pain, sore throat, difficulty swallowing, (unknown) (no (unknown) (unknown) HPI - Fall (units (unk nown) date) unknown) (unknown) (no (unknown) (unknown) HPI Narrative: (units (unknown) date) unknown) (unknown) (no (unknown) (unknown) Hct 29.3 L (units (u nknown) date) (36-46) % unknown) (unknown) (no (unknown) (unknown) Head CT (Signed) (units (unknown) date) unknown) (unknown) (no (unknown) (unknown) Hgb 10.2 L (units (u nknown) date) (12.0-16.0) g/dL unknown) (unknown) (no (unknown) (unknown) Hip X-Ray (units (unkn own) date) unknown) (unknown) (no (unknown) (unknown) History of (units (unk nown) date) Present Illness unknown) (unknown) (no (unknown) (unknown) IMPRESSION:? (units (u nknown) date) unknown) (unknown) (no (unknown) (unknown) INDICATIONS:? (units ( unknown) date) fall, dementia, unknown) distracting injury (unknown) (no (unknown) (unknown) INDICATIONS:? (units ( unknown) date) fall, distracting unknown) injury, dementia (unknown) (no (unknown) (unknown) INDICATIONS:? (units ( unknown) date) left hip pain, fal unknown) (unknown) (no (unknown) (unknown) Iliac (units (unkno wn) date) unknown) (unknown) (no (unknown) (unknown) Image quality:? (units (unknown) date) Excellent.? unknown) (unknown) (no (unknown) (unknown) Imaging Data (units (u nknown) date) unknown) (unknown) (no (unknown) (unknown) Initial Vital (units ( unknown) date) Signs unknown) (unknown) (no (unknown) (unknown) Initial Vital (units ( unknown) date) Signs: unknown) (unknown) (no (unknown) (unknown) Instructions: (units ( unknown) date) How to Prevent unknown) Falls (unknown) (no (unknown) (unknown) L4-5.? Both (units (un known) date) proximal femurs unknown) are intact without fracture.? Pelvic ring intact as (unknown) (no (unknown) (unknown) Lab Data (units (unkno wn) date) unknown) (unknown) (no (unknown) (unknown) Labs: (units (unkno wn) date) unknown) (unknown) (no (unknown) (unknown) Loc: ED (units (unkno wn) date) unknown) (unknown) (no (unknown) (unknown) Lymph # (Auto) (units (unknown) date) 700 L unknown) (4493-5561) /uL (unknown) (no (unknown) (unknown) Lymph % (Auto) (units (unknown) date) 14.5 L (25-40) unknown) % (unknown) (no (unknown) (unknown) MCH 30.8 (units (unk nown) date) (26-34) PG unknown) (unknown) (no (unknown) (unknown) MCHC 34.7 (units (un known) date) (30-36) % unknown) (unknown) (no (unknown) (unknown) MCV 88.8 (units (unk nown) date) (80-100) fL unknown) (unknown) (no (unknown) (unknown) MDM - Fall (units (unk nown) date) unknown) (unknown) (no (unknown) (unknown) MDM Narrative (units ( unknown) date) unknown) (unknown) (no (unknown) (unknown) MR#: [id number] (units (unknown) date) unknown) (unknown) (no (unknown) (unknown) MUSCULOSKELETAL: (units (unknown) date) See HPI unknown) (unknown) (no (unknown) (unknown) Medical decision (units (unknown) date) making narrative: unknown) (unknown) (no (unknown) (unknown) Miscellaneous:? (units (unknown) date) No inguinal unknown) hernias.? (unknown) (no (unknown) (unknown) [place] # (Auto) (units ( unknown) date) 300 (0-900) /uL unknown) (unknown) (no (unknown) (unknown) [place] % (Auto) (units ( unknown) date) 6.4 (3-14) % unknown) (unknown) (no (unknown) (unknown) Multilevel (units (unkn own) date) degenerative disc unknown) space narrowing and arthropathy in the mid to lower (unknown) (no (unknown) (unknown) NECK: Trachea (units ( unknown) date) midline. Non unknown) tender (unknown) (no (unknown) (unknown) NEURO: AOx3. (units (u nknown) date) unknown) (unknown) (no (unknown) (unknown) NEUROLOGIC: (units (un known) date) Denies weakness, unknown) headache, numbness, change in speech, confusion, (unknown) (no (unknown) (unknown) Narrative (units (unkn own) date) unknown) (unknown) (no (unknown) (unknown) Narrative: (units (unk nown) date) unknown) (unknown) (no (unknown) (unknown) Neut # (Auto) (units ( unknown) date) 3800 (3469-3351) unknown) /uL (unknown) (no (unknown) (unknown) Neut % (Auto) (units ( unknown) date) 75.6 H (50-75) unknown) % (unknown) (no (unknown) (unknown) No Known Drug (units ( unknown) date) Allergies Allergy unknown) Verified 12/14/21 11:05 (unknown) (no (unknown) (unknown) Nodes and (units (unkn own) date) vessels:? No unknown) iliac, pelvic, or inguinal adenopathy by size criteria.? (unknown) (no (unknown) (unknown) Noncontrast 3 mm (units (unknown) date) thick sections unknown) acquired from the skull base to the T4 level.? (unknown) (no (unknown) (unknown) Noncontrast 4.5 (units (unknown) date) mm thick angled unknown) axial sections acquired from the foramen magnum (unknown) (no (unknown) (unknown) Ordered: (units (unkno wn) date) unknown) (unknown) (no (unknown) (unknown) Ordering (units (unkno wn) date) Provider: unknown) Martin Jernigan D.O. (unknown) (no (unknown) (unknown) Orders (units (unkno wn) date) unknown) (unknown) (no (unknown) (unknown) Oxygen Delivery (units (unknown) date) Method Room Air unknown) (unknown) (no (unknown) (unknown) PROCEDURE:? CT (units (unknown) date) CERVICAL SPINE WO unknown) CON (unknown) (no (unknown) (unknown) PROCEDURE:? CT (units (unknown) date) HEAD/BRAIN WO CON unknown) (unknown) (no (unknown) (unknown) PROCEDURE:? CT (units (unknown) date) PEL WO CON unknown) (unknown) (no (unknown) (unknown) PSYCHIATRIC: No (units (unknown) date) concerning unknown) psychosocial issues. (unknown) (no (unknown) (unknown) Patient (units (unkno wn) date) Disposition: Home unknown) (unknown) (no (unknown) (unknown) Patient: (units (unkno wn) date) Rosa Maria Godfrey unknown) MR#: [id number] (unknown) (no (unknown) (unknown) Patient: (units (unkno wn) date) Rosa Maria Godfrey unknown) (unknown) (no (unknown) (unknown) Pelvis CT (units (unkn own) date) unknown) (unknown) (no (unknown) (unknown) Peritoneum and (units (unknown) date) bowel:? Bowel unknown) loops demonstrate normal wall thickness and (unknown) (no (unknown) (unknown) Potassium 4.3 (units (unknown) date) (3.4-5.1) mmol/L unknown) (unknown) (no (unknown) (unknown) Procedure: CT (units ( unknown) date) cervical spine wo unknown) con (unknown) (no (unknown) (unknown) Procedure: CT (units ( unknown) date) head/brain wo con unknown) (unknown) (no (unknown) (unknown) Procedure: CT (units ( unknown) date) pelvis wo con unknown) (unknown) (no (unknown) (unknown) Pulse Oximetry (units (unknown) date) 99 12/14/21 unknown) 11:04 (unknown) (no (unknown) (unknown) Pulse Oximetry 94 (units (unknown) date) 99 unknown) (unknown) (no (unknown) (unknown) Pulse Rate 67 (units (unknown) date) 12/14/21 11:04 unknown) (unknown) (no (unknown) (unknown) Pulse Rate 66 67 (units (unknown) date) unknown) (unknown) (no (unknown) (unknown) Qualifiers: (units (un known) date) unknown) (unknown) (no (unknown) (unknown) RDW 12.7 (units (unk nown) date) (11.6-14.8) % unknown) (unknown) (no (unknown) (unknown) RESPIRATORY: Clear (units (unknown) date) to auscultation. unknown) Breath sounds equal bilaterally. No wheezes, (unknown) (no (unknown) (unknown) RESPIRATORY: (units (u nknown) date) Denies dyspnea, unknown) cough, wheezing, hemoptysis, sputum. (unknown) (no (unknown) (unknown) Referrals: (units (unk nown) date) unknown) (unknown) (no (unknown) (unknown) Related Data (units (u nknown) date) unknown) (unknown) (no (unknown) (unknown) Resource line at (units (unknown) date) [phone]. They unknown) will ask some questions about your medical (unknown) (no (unknown) (unknown) Respiratory Rate (units (unknown) date) 18 unknown) (unknown) (no (unknown) (unknown) Result diagrams: (units (unknown) date) unknown) (unknown) (no (unknown) (unknown) Review of Systems (units (unknown) date) unknown) (unknown) (no (unknown) (unknown) SARS-CoV-2 (PCR) (units (unknown) date) Negative unknown) (Negative) (unknown) (no (unknown) (unknown) SKIN: Denies (units (u nknown) date) rash, skin unknown) lesions, or other (unknown) (no (unknown) (unknown) SKIN: No rash or (units (unknown) date) erythema of unknown) visible areas (unknown) (no (unknown) (unknown) Sagittal (units (unkno wn) date) unknown) (unknown) (no (unknown) (unknown) She denies other (units (unknown) date) injury. She has unknown) no chest pain or shortness of breath and (unknown) (no (unknown) (unknown) Signed By: (units (unk nown) date) unknown) (unknown) (no (unknown) (unknown) Sinuses:? (units (unkn own) date) Visualized sinuses unknown) and mastoids are clear.? (unknown) (no (unknown) (unknown) Skull and face:? (units (unknown) date) Calvarium and unknown) visualized facial bones are intact, without (unknown) (no (unknown) (unknown) Sodium 135 L (units (unknown) date) (137-145) mmol/L unknown) (unknown) (no (unknown) (unknown) Soft tissues:? (units (unknown) date) Prevertebral soft unknown) tissues are normal in thickness.? No (unknown) (no (unknown) (unknown) Stated Complaint: (units (unknown) date) Found down with unknown) right hip pain (unknown) (no (unknown) (unknown) TECHNIQUE:? (units (un known) date) unknown) (unknown) (no (unknown) (unknown) Temperature 97 F (units (unknown) date) L unknown) (unknown) (no (unknown) (unknown) Time Seen by (units (u nknown) date) Provider: 12/14/21 unknown) 11:03 (unknown) (no (unknown) (unknown) Total Bilirubin (units (unknown) date) 0.6 (0.2-1.3) unknown) mg/dL (unknown) (no (unknown) (unknown) Total Protein (units ( unknown) date) 6.3 (6.3-8.2) unknown) g/dL (unknown) (no (unknown) (unknown) Urine Specific (units (unknown) date) [place] 1.020 unknown) (unknown) (no (unknown) (unknown) [place] (units (unk nown) date) unknown) (unknown) (no (unknown) (unknown) Visit Report (units (u nknown) date) Forms: Patient unknown) Portal/API (unknown) (no (unknown) (unknown) Vital Signs (units (un known) date) unknown) (unknown) (no (unknown) (unknown) Vital signs: (units (u nknown) date) unknown) (unknown) (no (unknown) (unknown) Queen,Amando (units (u nknown) date) unknown) (unknown) (no (unknown) (unknown) With an (units (unkno wn) date) unwitnessed fall unknown) and waxing and waning complaints of possible left hip (unknown) (no (unknown) (unknown) XR hip w pel if (units (unknown) date) done LT 2V Stat unknown) (unknown) (no (unknown) (unknown) [Embedded Image (units (unknown) date) Not Available] unknown) (unknown) (no (unknown) (unknown) activated as a (units ( unknown) date) modified trauma unknown) given her age and suspected left hip injury. She (unknown) (no (unknown) (unknown) adjustment (units (unk nown) date) unknown) (unknown) (no (unknown) (unknown) and C6-7 (units (unkno wn) date) unknown) (unknown) (no (unknown) (unknown) and coronal (units (un known) date) reformats were unknown) then constructed.? For radiation dose reduction, the (unknown) (no (unknown) (unknown) and imaging are (units (unknown) date) very reassuring unknown) and there is no evidence of fracture or (unknown) (no (unknown) (unknown) appointment. Let (units (unknown) date) them know you were unknown) seen in the Emergency Department and that we (unknown) (no (unknown) (unknown) are normal in (units ( unknown) date) size and shape.? unknown) (unknown) (no (unknown) (unknown) ask that you be (units (unknown) date) seen in follow up. unknown) We will electronically transmit a record of (unknown) (no (unknown) (unknown) associated (units (unk nown) date) unknown) (unknown) (no (unknown) (unknown) caliber.? No (units (u nknown) date) unknown) (unknown) (no (unknown) (unknown) central (units (unkno wn) date) unknown) (unknown) (no (unknown) (unknown) concerning (units (unk nown) date) symptoms, such as unknown) [fever greater than 101 F, shaking chills, (unknown) (no (unknown) (unknown) constipation, (units ( unknown) date) melena. unknown) (unknown) (no (unknown) (unknown) crests to the (units ( unknown) date) symphysis.? 5 mm unknown) coronal and sagittal reformats were then (unknown) (no (unknown) (unknown) denies any (units (unk nown) date) nausea, vomiting unknown) or diarrhea (unknown) (no (unknown) (unknown) dislocation] (units (u nknown) date) unknown) (unknown) (no (unknown) (unknown) dizziness. (units (unk nown) date) unknown) (unknown) (no (unknown) (unknown) external (units (unkno wn) date) rotation, closed, unknown) isolated and neurovascularly intact (unknown) (no (unknown) (unknown) facility by EMS (units (unknown) date) for evaluation of unknown) injury sustained from a fall. She is (unknown) (no (unknown) (unknown) following (units (unkn own) date) unknown) (unknown) (no (unknown) (unknown) free fluid or (units ( unknown) date) air.? unknown) (unknown) (no (unknown) (unknown) given and (units (unkn own) date) questions answered unknown) to their apparent satisfaction (unknown) (no (unknown) (unknown) hematomas.? No (units (unknown) date) apical unknown) pneumothoraces.? (unknown) (no (unknown) (unknown) her baseline with (units (unknown) date) the use of a unknown) walker, witnessed by nursing and patient family. (unknown) (no (unknown) (unknown) history and help (units (unknown) date) get you set up unknown) with a doctor in the community. (unknown) (no (unknown) (unknown) icterus. No (units (un known) date) injection or unknown) drainage. (unknown) (no (unknown) (unknown) interface is (units (u nknown) date) normal.? Moderate unknown) cerebral and cerebellar volume loss with (unknown) (no (unknown) (unknown) lesions.? (units (unkn own) date) Bilateral unknown) intraocular lens replacements noted. (unknown) (no (unknown) (unknown) longer (units (unkno wn) date) complaining of unknown) left hip pain and the possible shortening and rotation (unknown) (no (unknown) (unknown) malalignment (units (u nknown) date) unknown) (unknown) (no (unknown) (unknown) matter (units (unkno wn) date) unknown) (unknown) (no (unknown) (unknown) matter chronic (units (unknown) date) ischemic change unknown) noted.? Atherosclerotic calcification noted (unknown) (no (unknown) (unknown) mild distress. (units (unknown) date) Pleasantly unknown) confused, GCS 14 (unknown) (no (unknown) (unknown) multifocal white (units (unknown) date) unknown) (unknown) (no (unknown) (unknown) noted on initial (units (unknown) date) exam is no longer unknown) present. Imaging of head, C-spine as well as (unknown) (no (unknown) (unknown) noted without (units ( unknown) date) evidence of unknown) aneurysm. (unknown) (no (unknown) (unknown) of mA and/or kV (units (unknown) date) according to unknown) patient size.? (unknown) (no (unknown) (unknown) pain. Exam is (units (unknown) date) very reassuring, unknown) by the time she returns from imaging she is no (unknown) (no (unknown) (unknown) paravertebral (units ( unknown) date) unknown) (unknown) (no (unknown) (unknown) patient (units (unkno wn) date) unknown) (unknown) (no (unknown) (unknown) performed.? For (units (unknown) date) unknown) (unknown) (no (unknown) (unknown) present.? (units (unkn own) date) unknown) (unknown) (no (unknown) (unknown) radiation dose (units (unknown) date) reduction, the unknown) following was used:? automated exposure control, (unknown) (no (unknown) (unknown) range of motion (units (unknown) date) or palpation. She unknown) denies any numbness, tingling or weakness. (unknown) (no (unknown) (unknown) seizures, (units (unkn own) date) incoordination. unknown) (unknown) (no (unknown) (unknown) severe left hip (units (unknown) date) pain. She does unknown) not take anticoagulation. She has pain with (unknown) (no (unknown) (unknown) size.? 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 She denies unknown) any head neck or back pain but complains of (unknown) (no (unknown) (unknown) stenosis at (units (un known) date) unknown) (unknown) (no (unknown) (unknown) stenosis at L4-5 (units (unknown) date) unknown) (unknown) (no (unknown) (unknown) suspicious (units (unk nown) date) unknown) (unknown) (no (unknown) (unknown) to the (units (unkno wn) date) unknown) (unknown) (no (unknown) (unknown) today's note if (units (unknown) date) your PCP is in our unknown) system (unknown) (no (unknown) (unknown) tonsillar (units (unkn own) date) hypertrophy or unknown) exudate. Airway patent. (unknown) (no (unknown) (unknown) traumatic (units (unkn own) date) unknown) (unknown) (no (unknown) (unknown) vertex, with (units (u nknown) date) coronal and unknown) sagittal reformats.? For radiation dose reduction, the (unknown) (no (unknown) (unknown) vessels (units (unkno wn) date) demonstrate normal unknown) size.? Atherosclerotic calcification in the abdominal (unknown) (no (unknown) (unknown) was found down (units (unknown) date) this morning by unknown) nursing staff, it is unclear she fell from (unknown) (no (unknown) (unknown) was used:? (units (unk nown) date) automated exposure unknown) control, adjustment of mA and/or kV according to (unknown) (no (unknown) (unknown) well. (units (unkno wn) date) unknown) (unknown) (no (unknown) (unknown) with cavernous (units (unknown) date) segments of both unknown) internal carotid arteries. (unknown) (no (unknown) (unknown) worsening pain, (units (unknown) date) persistent unknown) vomiting or other bothersome symptoms] Social History No information. Vital Signs No information.
--- NOTE | 2021-12-31 11:23 | ED Physician Documentation ---
PD HPI Fall - Stated complaint Stated Complaint: FALL - Chief complaint Chief Complaint: Trauma Ch/Bk - History obtained from History obtained from: Patient, Family (daughter) - History of Present Illness Mechanism of injury: Unknown (patient with poor memory/dementia so unable to account for the fall. Found by staff at [place] on floor to face/left side. pain in mid thoracic back. No apparent head/neck injury. No weakness/numbness.) Fall distance: Standing position Where injury occurred: Home (assisted living at [facility].) Timing - onset: Today (found on floor of her room at 9am. Staff contacted her daughter, who is POA and patient frought to ER by EMS.) Injury(ies) location: Back (upper). No: Head, Face, Chest, Abdomen Associated symptoms: No: AMS, Neck pain, Weakness, Paresthesias Contributing factors: No: Anticoagulated Similar symptoms before: No diagnosis (has had increasing trouble with leg weakness/falling. Does not call for assistance and not always uses her walker.) Review of Systems Unable to obtain: Dementia (poor memory, info from daughter, and the patient is present in the moment so can state current symptoms.) Cardiac: denies: Chest pain / pressure GI: denies: Abdominal Pain Musculoskeletal: reports: Back pain. denies: Neck pain Neurologic: reports: Confused (baseline). denies: Altered mental status, Headache, Head injury PD PAST MEDICAL HISTORY - Past Medical History Past Medical History: Yes Cardiovascular: Hypertension, Other Respiratory: None Neuro: Dementia Endocrine/Autoimmune: None GI: None SMASH FIXER: None : None HEENT: None Psych: None Musculoskeletal: None Derm: None - Past Surgical History Past Surgical History: Yes - Present Medications Home Medications: Ambulatory Orders Medication Instructions Recorded Confirmed Furosemide [Lasix] 20 mg PO DAILY 07/09/21 12/31/21 Lisinopril [Zestril] 20 mg PO DAILY 07/09/21 12/31/21 Multivitamin 1 each PO DAILY 07/09/21 12/31/21 - Allergies Allergies/Adverse Reactions: Allergies Allergy/AdvReac Type Severity Reaction Status Date / Time No Known Drug Allergies Allergy Verified 12/31/21 10:30 - Social History Does the pt smoke?: No Smoking Status: Never smoker Does the pt drink ETOH?: No Does the pt have substance abuse?: No - Immunizations Immunizations are current?: Yes PD ED PE NORMAL - Vitals Vital signs reviewed: Yes - General General: Alert and oriented X 3, Well developed/nourished - HEENT HEENT: Atraumatic - Neck Neck: Supple, no meningeal sign, No bony TTP - Cardiac Cardiac: RRR, No murmur - Respiratory Respiratory: Clear bilaterally, Other (no chestwall tenderness. ) - Abdomen Abdomen: Soft, Non tender - Back Back: No CVA TTP, Other (mid thoracic area with tenderness between shoudler blades. ) - Derm Derm: Normal color, Warm and dry - Extremities Extremities: Normal ROM s pain, Other (good femoral pulses. good color and cap refill in legs. ) - Neuro Neuro: No motor deficit, Normal speech, Other (alert to person and place. ) Results - Vitals Vitals: Oxygen O2 Source Room air - Labs Labs: Laboratory Tests 12/31/21 12/31/21 12:07 12:07 WBC 8.8 RBC 3.15 L Hgb 9.4 L Hct 29.0 L MCV 92.1 MCH 29.8 MCHC 32.4 RDW 12.9 Plt Count 218 MPV 9.3 Neut # (Auto) 8.0 H Lymph # (Auto) 0.5 L [place] # (Auto) 0.3 Eos # (Auto) 0.0 Baso # (Auto) 0.0 Absolute Nucleated RBC 0.00 Nucleated RBC % 0.0 Sodium 139 Potassium 3.7 Chloride 104 Carbon Dioxide 25 Anion Gap 10.0 BUN 48 H Creatinine 1.4 H Estimated GFR (MDRD) 35 L Glucose 130 H Calcium 9.5 Magnesium 1.9 Total Bilirubin 1.0 AST 27 ALT 26 Alkaline Phosphatase 53 Total Protein 5.9 L Albumin 2.3 L Globulin 3.6 Albumin/Globulin Ratio 0.6 L Lipase 28 - Rads (name of study) thoracic CT Radiology: Prelim report reviewed (arthritic changes. no fractures. Abd aortic stenosis significed by calcified plaque. ), See rad report PD MEDICAL DECISION MAKING - ED course Complexity details: reviewed results (no fractures. noted is abd aortic stenosis. Initial impression from pt/daughter is not inclined for wanting vascular interventions. ), considered differential, d/w patient, d/w family (daughter with patient. Discussed findings of no fractures. Incidental finding of abd aortic stenosis. Patient does have good femoral pulses and color/cap refill in feet. She has had weakness walking lately and so could consider claudication as the patient has some dementia. 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 You may still be sore in the upper back from the fall. I would suggest changing your Tylenol to regular dosing 500 mg 4 times daily to help with pains. Basic blood tests are looking okay with electrolytes and blood count. The CT scan of the head and neck show age-related changes and arthritis but no acute problems either. The CT scan of the thoracic spine also showed incidental findings of some fluid around the lung on the left, very small amount, and likely is the same process that has swelling in the legs (mild congestive failure). Also of note is a lot of atherosclerotic plaque buildup in the abdominal aorta that represents likely diminished amount of blood flow to the legs. Your legs have good color and capillary refill and warmth so appears adequate blood flow at this point. Discussed with your primary care if any further assessments or potential surgical interventions are desired for this (such as ultrasound/ etc, and vascular surgery consultation). Discharge Date/Time: 12/31/21 14:54
[2021-12-31] MEDS ORDERED: ACETAMINOPHEN 325 MG TABLET PO STA (11:45)
[2021-12-31 12:18] LABS: BASOPHILS % (AUTO) 0.3 %; HGB - HEMOGLOBIN 9.4 g/dL (12.0-16.0); LYMPHOCYTES # (AUTO) 0.5 10^3/uL (1.5-3.5); LYMPHOCYTES % (AUTO) 5.4 %; MEAN CORPUSCULAR HEMOGLOBIN 29.8 pg (27.0-31.0); MEAN CORPUSCULAR HGB CONC 32.4 g/dL (32.0-36.0); MEAN CORPUSCULAR VOLUME 92.1 fL (81.0-99.0); MEAN PLATELET VOLUME 9.3 fL (7.9-10.8); MONOCYTES # (AUTO) 0.3 10^3/uL (0.0-1.0); MONOCYTES % (AUTO) 3.2 %; NEUTROPHILS % (AUTO) 90.4 %; PLT - PLATELET COUNT 218 10^3/uL (130-450); RED BLOOD COUNT 3.15 10^6/uL (4.20-5.40); RED CELL DISTRIBUTION WIDTH 12.9 % (12.0-15.0); WHITE BLOOD COUNT 8.8 x10^3/uL (4.8-10.8)
[2021-12-31 12:33] LABS: ALBUMIN 2.3 g/dL (3.2-5.5); ALBUMIN/GLOBULIN RATIO 0.6 (1.0-2.2); CALCIUM 9.5 mg/dL (8.5-10.3); CREATININE 1.4 mg/dL (0.4-1.0); MAGNESIUM 1.9 mg/dL (1.7-2.8); POTASSIUM 3.7 mmol/L (3.5-5.0); TOTAL PROTEIN 5.9 g/dL (6.7-8.2)
--- NOTE | 2021-12-31 13:15 | CT Report ---
PROCEDURE: CERVICAL SPINE WO INDICATIONS: fall with back/neck pain TECHNIQUE: Noncontrast 3 mm thick sections acquired from the skull base to the T4 level. Sagittal and coronal r eformats were then constructed. For radiation dose reduction, the following was used: automated exp osure control, adjustment of mA and/or kV according to patient size. COMPARISON: None. FINDINGS: Image quality: Excellent. Bones: No fractures or dislocations. Degenerative changes are present throughout the cervical spine including intervertebral disc space narrowing and endplate sclerosis. Visualized superior ribs are i ntact. Soft tissues: Prevertebral soft tissues are normal in thickness. No paravertebral hematomas. No ap ical pneumothoraces. IMPRESSION: 1. No acute cervical spine injury. 2. Degenerative change of the cervical spine. Reviewed by: Tona Hicks MD on 12/31/2021 1:13 PM PDT Approved by: Tona Hicks MD on 12/31/2021 1:13 PM PDT Station ID: [id number]
--- NOTE | 2021-12-31 13:18 | CT Report ---
PROCEDURE: THORACIC SPINE WO INDICATIONS: fall with upper back pain TECHNIQUE: Noncontrast 3 mm thick sections acquired through the region of interest in the thoracic spine. Sagit lamar and coronal reformats were then constructed. For radiation dose reduction, the following was used : automated exposure control, adjustment of mA and/or kV according to patient size. COMPARISON: None. FINDINGS: Image quality: Excellent. Bones: There is global kyphosis of the thoracic spine with multilevel mild chronic anterior wedging. Severe degenerative changes are present throughout the thoracic spine including intervertebral disc s pace narrowing, endplate sclerosis, and osteophytosis. Vacuum disc phenomenon is present at T11-12 an d T12-L1. No acute compression deformities. Soft tissues: No paravertebral masses or hematomas. There is a partially visualized low-density left pleural effusion and airspace opacities at the left lung base. Scattered atheromatous calcifications are present throughout the abdominal aorta. The right kidney appears atrophic. Dense near occlusive calcifications are present within the superior abdominal aorta. IMPRESSION: 1. No acute thoracic spine injury. 2. 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 3. Partially visualized left pleural effusion and left basilar pulmonary radiopacities. 4. Severe aortic atherosclerosis with near contusion of the proximal abdominal aorta. Reviewed by: Tona Hicks MD on 12/31/2021 1:17 PM PDT Approved by: Tona Hicks MD on 12/31/2021 1:17 PM PDT Station ID: [id number]
--- NOTE | 2021-12-31 13:20 | CT Report ---
PROCEDURE: HEAD WO INDICATIONS: fall TECHNIQUE: Noncontrast 4.5 mm thick angled axial sections acquired from the foramen magnum to the vertex. For r adiation dose reduction, the following was used: automated exposure control, adjustment of mA and/or kV according to patient size. COMPARISON: None. FINDINGS: Image quality: Excellent. CSF spaces: Basal cisterns are patent. No extra-axial fluid collections. Ventricles are normal in size and shape. Brain: No midline shift. No intracranial masses or hemorrhage. Molina-white matter interface is norm al. There is peripheral and central volume loss likely associated with patient age. Skull and face: Calvarium and visualized facial bones are intact, without suspicious lesions. Sinuses: Visualized sinuses and mastoids are clear. IMPRESSION: 1. No acute intracranial findings. 2. Findings likely associated with chronic microvascular ischemic changes. Reviewed by: Tona Hicks MD on 12/31/2021 1:19 PM PDT Approved by: Tona Hicks MD on 12/31/2021 1:19 PM PDT Station ID: [id number]
[2021-12-31 14:09] VITALS: BP 114/45
== END 2021-12-31 14:54 | disposition home or self-care (01) ==
LOC: EDUNIT# → ED 10:20
DX: S09.93XA Unspecified injury of face, initial encounter (principal); W19.XXXA Unspecified fall, initial encounter; Y92.099 Unspecified place in other non-institutional residence as the place of occurrence of the external cause; M54.6 Pain in thoracic spine; F03.90 Unspecified dementia, unspecified severity, without behavioral disturbance, psychotic disturbance, mood disturbance, and anxiety; I10 Essential (primary) hypertension
CPT/HCPCS: 36415; 70450; 72125; 72128; 80053; 83690; 83735; 85025; 99282; 99284; A9270

== ENCOUNTER 2021-12-31 14:52 | Outpatient (CLI) | payer MEDICARE, OTHER | END 2021-12-31 14:53 | disposition home or self-care (01) | LOC: EMS 14:52 | PROVIDERS: ATTEND Emergency Medicine | DX: R41.0 Disorientation, unspecified (principal); Z74.01 Bed confinement status; M54.50 Low back pain, unspecified | CPT/HCPCS: A0425; A0428 ==

== ENCOUNTER 2022-01-04 05:22 | Outpatient (CLI) | payer MEDICARE, OTHER | END 2022-01-04 05:23 | disposition EMS.NT | LOC: EMS 05:22 | DX: Z03.89 Encounter for observation for other suspected diseases and conditions ruled out (principal) ==

== ENCOUNTER 2022-01-06 09:51 | Outpatient (CLI) | payer MEDICARE, OTHER | END 2022-01-06 09:52 | disposition critical access hospital (66) | LOC: EMS 09:51 | DX: R62.7 Adult failure to thrive (principal); R41.0 Disorientation, unspecified; R29.6 Repeated falls; R14.0 Abdominal distension (gaseous) | CPT/HCPCS: A0425; A0429 ==

== ENCOUNTER 2022-01-06 10:08 | Emergency (ER) | payer MEDICARE, OTHER ==
--- OUTSIDE RECORDS SUMMARY | 2022-01-06 10:19 | EXTERNAL MEDICAL SUMMARY RPT | Continuity of Care Document ---
:1930 Author Organization [facility] Address [address] [place] [address] Phone Allergies and Intolerances date description facility type (no date) No Known Drug Allergies [facility] (unkn own) Encounters No information. Functional Status No information. Immunizations No information. Medications No information. Problems No information. Procedures No information. Results/Labs test date author facility value unit interpret ation Result panel 1 (unknown) (no (unknown) (unknown) [address] [place] [address] (units (unknown) date) unknown) (unknown) (no (unknown) (unknown) [place], [place] (units ( unknown) date) [address] unknown) (unknown) (no (unknown) (unknown) Echocardiography (units (unknown) date) Report unknown) (unknown) (no (unknown) (unknown) [facility] (units (unknown) date) unknown) (unknown) (no (unknown) (unknown) Signed (units (unkno wn) date) unknown) (unknown) (no (unknown) (unknown) (no value) (units (unk nown) date) unknown) (unknown) (no (unknown) (unknown) 12/05/21 (units (unkno wn) date) unknown) (unknown) (no (unknown) (unknown) + (units (unknown) date) unknown) ---+ (unknown) (no (unknown) (unknown) [id number] (units (unkno wn) date) unknown) (unknown) (no (unknown) (unknown) :Account #: (units (un known) date) [id number] Gender: unknown) Female BSA: 1.7 m2 : (unknown) (no (unknown) (unknown) :: 1930 (units (unknown) date) Age: 89 yrs BP: unknown) 185/74 mmHg: (unknown) (no (unknown) (unknown) :ALE Performed (units (unknown) date) By: Madan unknown) [facility] : (unknown) (no (unknown) (unknown) :Ordering (units (unkn own) date) Physician: PITO, : unknown) (unknown) (no (unknown) (unknown) :Reason For Study: (units (unknown) date) Edema : unknown) (unknown) (no (unknown) (unknown) :Referring: PITO, (units (unknown) date) ALE : unknown) (unknown) (no (unknown) (unknown) sev ratio: 0.96 (units (unknown) date) unknown) (unknown) (no (unknown) (unknown) Accession Number: (units (unknown) date) [id number] unknown) (unknown) (no (unknown) (unknown) Age/Sex: 89 [...] (unknown) (unknown) : 1930 (units (unknown) date) Acct:[id number] unknown) (unknown) (no (unknown) (unknown) Diastolic function (units (unknown) date) could not be unknown) accurately assessed due to atrial (unknown) (no (unknown) (unknown) Doppler (units (unkno wn) date) Measurements + unknown) Calculations (unknown) (no (unknown) (unknown) E/E' med: 18.3 (units (unknown) date) unknown) (unknown) (no (unknown) (unknown) Electronically (units (unknown) date) signed by: Perez cotto) Venkat on 12/06/2021 09:50 (unknown) (no (unknown) [...] (unknown) (unknown) Ordering Provider: (units (unknown) date) Ale Quintero unknown) (unknown) (no (unknown) (unknown) Patient: [...] nown) date) unknown) (unknown) (no (unknown) (unknown) [address] [place] [address] (units (unknown) date) unknown) (unknown) (no (unknown) (unknown) [place], [place] (units ( unknown) date) [id number] unknown) (unknown) (no (unknown) (unknown) CT Scan Report (units (unknown) date) unknown) (unknown) (no (unknown) (unknown) [facility] (units (unknown) date) unknown) (unknown) (no [...] (unknown) (unknown) COMPARISON: (units (un known) date) [facility], unknown) CT, CT PEL WO CON, [...] internal carotid arteries. (unknown) (no (unknown) (unknown) [id number] (units (unkno wn) date) unknown) (unknown) (no (unknown) (unknown) Accession Number: (units (unknown) date) [id number] unknown) (unknown) (no (unknown) (unknown) Accession Number: (units (unknown) date) [id number] unknown) (unknown) (no (unknown) (unknown) Accession Number: (units (unknown) date) [id number] unknown) (unknown) (no (unknown) (unknown) Age/Sex: 89 / F (units (unknown) date) Date of Service: unknown) (unknown) (no (unknown) (unknown) C4-5, C5-6 (units (unk nown) date) unknown) (unknown) (no (unknown) (unknown) : 1930 (units (unknown) date) Acct:[id number] unknown) (unknown) (no (unknown) (unknown) Loc: ED [...] Report unknown) (unknown) (no date) (unknown) (unknown) [place] (units (unkn own[facility] [address] unknown) [address] [place] [address] (unknown) (no date) (unknown) (unknown) (no value) (units (un known) unknown) (unknown) (no date) (unknown) (unknown) [id number] (units (unkn own) unknown) (unknown) (no date) (unknown) (unknown) Age/Sex: 89 / (units (unknown) F unknown) (unknown) (no date) (unknown) (unknown) Allergy/AdvRe (units (unknown) ac Type unknown) Severity Reaction Status Date / Time (unknown) (no date) (unknown) (unknown) : (units (unkn own) 1930 unknown) Acct:[id number] (unknown) (no date) (unknown) (unknown) Departure [...] (unknown) date) unknown) (unknown) (no (unknown) (unknown) [facility] (units (unknown) date) [address] unknown) [place] [address] (unknown) (no (unknown) (unknown) Vital Signs - 8 (units (unknown) date) hr unknown) (unknown) (no (unknown) (unknown) (no value) (units (unk nown) date) unknown) (unknown) (no (unknown) (unknown) 12/14/21 (units (unkno wn) date) unknown) (unknown) (no (unknown) (unknown) [id number] (units (unkno wn) date) unknown) (unknown) (no [...] (unknown) (unknown) : 1930 (units (unknown) date) Acct:[id number] unknown) (unknown) (no (unknown) (unknown) Departure (units [...] (unknown) date) unknown) (unknown) (no (unknown) (unknown) [facility] (units (unknown) date) [address] [place] [address] unknown) [place] [address] (unknown) (no (unknown) (unknown) Vital Signs - 8 (units (unknown) date) hr unknown) (unknown) (no (unknown) (unknown) (no value) (units (unk nown) date) unknown) (unknown) (no (unknown) (unknown) 12/14/21 (units (unkno wn) date) unknown) (unknown) (no (unknown) (unknown) rales, or (units (unkn own) date) rhonchi. unknown) (unknown) (no (unknown) (unknown) [id number] (units (unkno wn) date) unknown) (unknown) (no [...] female nonsmoker unknown) with dementia presents from jail (unknown) (no (unknown) (unknown) Age/Sex: 89 / [...] (unknown) (unknown) : 1930 (units (unknown) date) Acct:[id number] unknown) (unknown) (no (unknown) (unknown) Departure (units [...] date) unknown) (unknown) (no (unknown) (unknown) [address] [place] [address] (units (unknown) date) unknown) (unknown) (no (unknown) (unknown) [place], [place] (units ( unknown) date) [address] unknown) (unknown) (no (unknown) (unknown) CT Scan Report (units (unknown) date) unknown) (unknown) (no (unknown) (unknown) [facility] (units (unknown) date) unknown) (unknown) (no [...] (unknown) (unknown) COMPARISON: (units (un known) date) [facility], unknown) CR, XR HIP W PEL [...] calcification in the (unknown) (no (unknown) (unknown) [id number] (units (unkno wn) date) unknown) (unknown) (no (unknown) (unknown) Accession Number: (units (unknown) date) [id number] unknown) (unknown) (no (unknown) (unknown) Age/Sex: 89 / F (units (unknown) date) Date of Service: unknown) (unknown) (no (unknown) (unknown) : 1930 (units (unknown) date) Acct:[id number] unknown) (unknown) (no (unknown) (unknown) Iliac (units [...] date) unknown) (unknown) (no (unknown) (unknown) [address] [place] [address] (units (unknown) date) unknown) (unknown) (no (unknown) (unknown) Allergies (units (unkn own) date) unknown) (unknown) (no (unknown) (unknown) IJEOMA Goldstein (units ( unknown) date) [address] unknown) (unknown) (no (unknown) (unknown) CT Scan Report (units (unknown) date) unknown) (unknown) (no (unknown) (unknown) Close (units (unkno wn) date) unknown) (unknown) (no (unknown) (unknown) ED Orders (units (unkn own) date) unknown) (unknown) (no (unknown) (unknown) Emergency Report (units (unknown) date) unknown) (unknown) (no (unknown) (unknown) [facility] (units (unknown) date) unknown) (unknown) (no (unknown) (unknown) [facility] (units (unknown) date) [address] unknown) [place] [address] (unknown) (no (unknown) (unknown) Lab Results (units [...] wn) date) unknown) (unknown) (no (unknown) (unknown) [id number] (units (unkno wn) date) unknown) (unknown) (no [...] 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 (units (unkno wn) date) unknown) (unknown) (no (unknown) (unknown) ALT 17 (<35) (units (unknown) date) IU/L unknown) (unknown) (no (unknown) (unknown) AST 21 (units (unkn own) date) (14-36) IU/L unknown) (unknown) (no (unknown) (unknown) Accession Number: (units (unknown) date) [id number] ?? unknown) (unknown) (no (unknown) (unknown) Accession Number: (units (unknown) date) [id number] ?? unknown) (unknown) (no (unknown) (unknown) Acct:[id number] (units (unknown) date) unknown) (unknown) (no (unknown) [...] (unknown) (unknown) : 1930 (units (unknown) date) Acct:[id number] unknown) (unknown) (no (unknown) (unknown) : 1930 [...] (Auto) (units (unknown) date) 700 L unknown) (2106-9363) /uL (unknown) (no (unknown) (unknown) Lymph % [...] date) unknown) (unknown) (no (unknown) (unknown) MR#: [id number] (units (unknown) date) unknown) (unknown) (no (unknown) (unknown) MUSCULOSKELETAL: (units (unknown) date) See HPI unknown) (unknown) (no (unknown) (unknown) [place] # (Auto) (units ( unknown) date) 300 (0-900) /uL unknown) (unknown) (no (unknown) (unknown) [place] % (Auto) (units ( unknown) date) 6.4 [...] # (Auto) (units ( unknown) date) 3800 (8529-5023) unknown) /uL (unknown) (no (unknown) (unknown) Neut [...] (unknown) (unknown) Patient: (units (unkno wn) date) EpifanioRosa Maria unknown) MR#: [id number] (unknown) (no (unknown) (unknown) [...] date) unknown) (unknown) (no (unknown) (unknown) [address] [place] [address] (units (unknown) date) unknown) (unknown) (no (unknown) (unknown) Allergies (units (unkn own) date) unknown) (unknown) (no (unknown) (unknown) [place], [place] (units ( unknown) date) [address] unknown) (unknown) (no (unknown) (unknown) CT Scan Report (units (unknown) date) unknown) (unknown) (no (unknown) (unknown) Close (units (unkno wn) date) unknown) (unknown) (no (unknown) (unknown) ED Orders (units (unkn own) date) unknown) (unknown) (no (unknown) (unknown) Emergency Report (units (unknown) date) unknown) (unknown) (no (unknown) (unknown) [facility] (units (unknown) date) unknown) (unknown) (no (unknown) (unknown) [facility] (units (unknown) date) [address] unknown) [place] [address] (unknown) (no (unknown) (unknown) Lab Results (units [...] wn) date) unknown) (unknown) (no (unknown) (unknown) [id number] (units (unkno wn) date) unknown) (unknown) (no [...] 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 (units (unkno wn) date) unknown) (unknown) (no (unknown) (unknown) ALT 17 (<35) (units (unknown) date) IU/L unknown) (unknown) (no (unknown) (unknown) AST 21 (units (unkn own) date) (14-36) IU/L unknown) (unknown) (no (unknown) (unknown) Accession Number: (units (unknown) date) [id number] ?? unknown) (unknown) (no (unknown) (unknown) Accession Number: (units (unknown) date) [id number] ?? unknown) (unknown) (no (unknown) (unknown) Accession Number: (units (unknown) date) [id number] ?? unknown) (unknown) (no (unknown) (unknown) Acct:[id number] (units (unknown) date) unknown) (unknown) (no (unknown) [...] (unknown) (unknown) COMPARISON:? (units (u nknown) date) [facility], unknown) CR, XR HIP W PEL [...] (unknown) (unknown) : 1930 (units (unknown) date) Acct:[id number] unknown) (unknown) (no (unknown) (unknown) : 1930 [...] (Auto) (units (unknown) date) 700 L unknown) (1885-1909) /uL (unknown) (no (unknown) (unknown) Lymph % [...] date) unknown) (unknown) (no (unknown) (unknown) MR#: [id number] (units (unknown) date) unknown) (unknown) (no (unknown) (unknown) MUSCULOSKELETAL: (units (unknown) date) See HPI unknown) (unknown) (no (unknown) (unknown) Miscellaneous:? (units (unknown) date) No inguinal unknown) hernias.? (unknown) (no (unknown) (unknown) [place] # (Auto) (units ( unknown) date) 300 (0-900) /uL unknown) (unknown) (no (unknown) (unknown) [place] % (Auto) (units ( unknown) date) 6.4 [...] # (Auto) (units ( unknown) date) 3800 (7857-5956) unknown) /uL (unknown) (no (unknown) (unknown) Neut [...] date) unknown) (unknown) (no (unknown) (unknown) [address] [place] [address] (units (unknown) date) unknown) (unknown) (no (unknown) (unknown) Allergies (units (unkn own) date) unknown) (unknown) (no (unknown) (unknown) IJEOMA Goldstein (units ( unknown) date) [address] unknown) (unknown) (no (unknown) (unknown) CT Scan Report (units (unknown) date) unknown) (unknown) (no (unknown) (unknown) Close (units (unkno wn) date) unknown) (unknown) (no (unknown) (unknown) ED Orders (units (unkn own) date) unknown) (unknown) (no (unknown) (unknown) Emergency Report (units (unknown) date) unknown) (unknown) (no (unknown) (unknown) [facility] (units (unknown) date) unknown) (unknown) (no (unknown) (unknown) [facility] (units (unknown) date) [address] unknown) [place] [address] (unknown) (no (unknown) (unknown) Lab Results (units [...] primary unknown) care provider please contact the [facility] (unknown) (no (unknown) (unknown) *Please follow [...] initial unknown) encounter (unknown) (no (unknown) (unknown) [id number] (units (unkno wn) date) unknown) (unknown) (no [...] 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 (units (unkno wn) date) unknown) (unknown) (no (unknown) (unknown) ALT 17 (<35) (units (unknown) date) IU/L unknown) (unknown) (no (unknown) (unknown) AST 21 (units (unkn own) date) (14-36) IU/L unknown) (unknown) (no (unknown) (unknown) Accession Number: (units (unknown) date) [id number] ?? unknown) (unknown) (no (unknown) (unknown) Accession Number: (units (unknown) date) [id number] ?? unknown) (unknown) (no (unknown) (unknown) Accession Number: (units (unknown) date) [id number] ?? unknown) (unknown) (no (unknown) (unknown) Acct:[id number] (units (unknown) date) unknown) (unknown) (no (unknown) [...] (unknown) (unknown) COMPARISON:? (units (u nknown) date) [facility], unknown) CR, XR HIP W PEL [...] (unknown) (unknown) : 1930 (units (unknown) date) Acct:[id number] unknown) (unknown) (no (unknown) (unknown) : 1930 [...] (Auto) (units (unknown) date) 700 L unknown) (4855-3033) /uL (unknown) (no (unknown) (unknown) Lymph % [...] date) unknown) (unknown) (no (unknown) (unknown) MR#: [id number] (units (unknown) date) unknown) (unknown) (no (unknown) (unknown) MUSCULOSKELETAL: (units (unknown) date) See HPI unknown) (unknown) (no (unknown) (unknown) Medical decision (units (unknown) date) making narrative: unknown) (unknown) (no (unknown) (unknown) Miscellaneous:? (units (unknown) date) No inguinal unknown) hernias.? (unknown) (no (unknown) (unknown) [place]wood # (Auto) (units ( unknown) date) 300 (0-900) /uL unknown) (unknown) (no (unknown) (unknown) [place] % (Auto) (units ( unknown) date) 6.4 [...] # (Auto) (units ( unknown) date) 3800 (1825-2352) unknown) /uL (unknown) (no (unknown) (unknown) Neut [...] (unknown) (unknown) Patient: (units (unkno wn) date) EpifanioRosa Maria unknown) MR#: [id number] (unknown) (no (unknown) (unknown) Patient: (units (unkno wn) date) Catherine Godfreylene unknown) (unknown) (no (unknown) (unknown) Pelvis CT [...] (unknown) Resource line at (units (unknown) date) [phone]. They unknown) will ask some questions about [...] (unknown) (unknown) Urine Specific (units (unknown) date) [place] 1.020 unknown) (unknown) (no (unknown) (unknown) Ventricles [...]
[2022-01-06] MEDS ORDERED: SODIUM CHLORIDE 0.9% 1,000 ML IV STA (11:24)
[2022-01-06 11:43] LABS: BASOPHILS % (AUTO) 0.2 %; HGB - HEMOGLOBIN 9.9 g/dL (12.0-16.0); LYMPHOCYTES # (AUTO) 0.5 10^3/uL (1.5-3.5); LYMPHOCYTES % (AUTO) 4.9 %; MEAN CORPUSCULAR HEMOGLOBIN 29.4 pg (27.0-31.0); MEAN CORPUSCULAR HGB CONC 31.9 g/dL (32.0-36.0); MEAN PLATELET VOLUME 9.9 fL (7.9-10.8); MONOCYTES # (AUTO) 0.4 10^3/uL (0.0-1.0); MONOCYTES % (AUTO) 3.3 %; NEUTROPHILS # (AUTO) 9.9 10^3/uL (1.5-6.6); PLT - PLATELET COUNT 175 10^3/uL (130-450); RED BLOOD COUNT 3.37 10^6/uL (4.20-5.40); RED CELL DISTRIBUTION WIDTH 13.5 % (12.0-15.0); WHITE BLOOD COUNT 10.9 x10^3/uL (4.8-10.8)
[2022-01-06 12:01] LABS: ALBUMIN 2.1 g/dL (3.2-5.5); ALBUMIN/GLOBULIN RATIO 0.6 (1.0-2.2); BILIRUBIN,TOTAL 1.1 mg/dL (0.2-1.0); CALCIUM 9.6 mg/dL (8.5-10.3); CREATININE 1.2 mg/dL (0.4-1.0); MAGNESIUM 2.3 mg/dL (1.7-2.8); POTASSIUM 3.4 mmol/L (3.5-5.0); TOTAL PROTEIN 5.9 g/dL (6.7-8.2)
[2022-01-06 13:05] VITALS: BP 140/75
--- NOTE | 2022-01-06 13:36 | CT Report ---
PROCEDURE: ANGIO ABDOMEN/PELVIS W INDICATIONS: intermittent back/abd pain; aortic plaque on prior CONTRAST: IV CONTRAST: Optiray 320 ml: 100 PO CONTRAST: *NO PO CONTRAST TECHNIQUE: After the administration of intravenous contrast, 2.5 mm thick sections acquired from the diaphragm t o the symphysis. 10 mm maximum-intensity projection (MIP) reformats were then acquired. For radiati on dose reduction, the following was used: automated exposure control, adjustment of mA and/or kV ac cording to patient size. COMPARISON: None FINDINGS: Image quality: Excellent. Aorta: There is severe calcific plaque of the abdominal aorta. There is high-grade eccentric calcifi c stenosis of the perirenal abdominal aorta. No aneurysm nor dissection. Mesenteric and renal arteries: High-grade celiac artery origin stenosis. Superior mesenteric artery d emonstrates a mild calcific origin stenosis. High-grade inferior mesenteric artery origin stenosis is present. High-grade bilateral renal artery stenoses. Extravascular soft tissues: Small bilateral pleural effusions are present. There is moderate left and mild right dependent bibasilar atelectasis versus pneumonia. Heart size is normal. Liver and spleen are normal in size and enhancement. Gallbladder is surgically absent. Biliary system is non dilate d. Pancreas enhances normally. There is a left adrenal nodule measuring roughly 20 mm diameter whic h demonstrates postcontrast Hounsfield units of 67. No right adrenal nodules. Kidneys are normal in size and enhancement, without hydronephrosis. Stomach and small bowel are within normal limits. There is moderate fecal distention of the rectum. There is thickening of the splenic flexure of colon, [place] cending and sigmoid colon. No free fluid or air. No retroperitoneal or mesenteric adenopathy. No ve ntral hernias. No suspicious bony lesions. No vertebral body compression fractures. IMPRESSION: 1. Thickening of the descending and sigmoid colon, as well as the rectum, in a distribution suggestiv e of ischemia. Infection and inflammation could present a similar appearance. 2. Appendix not seen. No evidence of appendicitis. 3. Severe atherosclerosis of the abdominal aorta with high-grade eccentric calcific stenosis of the a bdominal aorta. 4. Indeterminate left adrenal nodule, which could be further assessed with nonemergent outpatient fol low-up adrenal protocol MRI, if clinically indicated. 5. Small bilateral pleural effusions. Bibasilar atelectasis versus pneumonia. Reviewed by: Ester Ely MD on 01/06/2022 1:35 PM PDT Approved by: Ester Ely MD on 01/06/2022 1:35 PM PDT Station ID: [id number]
[2022-01-06 14:02] LABS: BILIRUBIN,URINE NEGATIVE (NEGATIVE); GLUCOSE, URINE (UA) NEGATIVE (NEGATIVE); KETONES,URINE (UA) NEGATIVE (NEGATIVE); LEUKOCYTE ESTERASE, URINE NEGATIVE (NEGATIVE); NITRITE,URINE NEGATIVE (NEGATIVE); OCCULT BLOOD,URINE NEGATIVE (NEGATIVE); PROTEIN,URINE 30 mg/dL (NEGATIVE); UROBILINOGEN,URINE 0.2 (NORMAL) E.U./dL (NORMAL)
[2022-01-06 14:04] LABS: CLARITY,URINE CLEAR (CLEAR)
[2022-01-06 14:21] LABS: BACTERIA,URINE Moderate /HPF (None Seen); RBC,URINE 0-5 /HPF (0-5); SQUAMOUS EPITHELIAL CELL,UR FEW Squamous (<= Few); WBC CLUMPS,URINE PRESENT; WBC,URINE 0-3 /HPF (0-5)
[2022-01-06] MEDS ORDERED: HYDROcod/ACETAM 5/325 MG TABLET PO STA (15:23)
[2022-01-06] MEDS ORDERED: DOCUSATE SODIUM 100 MG CAPSULE PO STA (15:23)
[2022-01-06] MEDS ORDERED: HYDROcodone/ACETAM 7.5 MG/325 MG 15 ML UDC PO STA (15:38)
[2022-01-06] MEDS ORDERED: LACTULOSE 10 GM /15 ML UDC PO STA (15:38)
--- NOTE | 2022-01-06 16:04 | ED Physician Documentation ---
PD HPI BACK PAIN - Stated complaint Stated Complaint: PALLIATIVE CARE - Chief complaint Chief Complaint: General - History obtained from History obtained from: Patient - History of Present Illness Timing - onset: How many weeks ago (has had back pain for weeks, initially after a fall but continues despite movement or position. Seems to come in waves. Was having significant pain last night despite Tylenol qid the past 6 days.) Timing - details: Gradual onset, Still present, Waxing and waning Location: Mid, Lower Quality: Pain, Aching Associated symptoms: No: Fever, Weakness, Numbness, Hematuria Worsened by: Movement Contributing factors: Trauma (did have a recent fall). No: Lifting, Twisting Similar symptoms before: Diagnosis (prior back pain from arthritis.) Review of Systems Constitutional: denies: Fever, Chills Nose: denies: Rhinorrhea / runny nose, Congestion Cardiac: denies: Chest pain / pressure, Pedal edema Respiratory: denies: Dyspnea, Cough GI: reports: Other (less appetite and intake per daughter.). 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 : None HEENT: None Psych: None Musculoskeletal: Osteoarthritis, Chronic back pain Derm: None - Past Surgical History Past Surgical History: Yes - Present Medications Home Medications: Ambulatory Orders Medication Instructions Recorded Confirmed Furosemide [Lasix] 20 mg PO DAILY 07/09/21 12/31/21 Lisinopril [Zestril] 20 mg PO DAILY 07/09/21 12/31/21 Multivitamin 1 each PO DAILY 07/09/21 12/31/21 Aspirin EC [Ecotrin] 81 mg PO DAILY #30 tablet 01/06/22 HYDROcodone/ACET 7.5/325 KATHY 8 ml PO BID #160 ml 01/06/22 [Lortab 7.5/325 Kathy] Lactulose 15 ml PO DAILY #180 ml 01/06/22 - Allergies Allergies/Adverse Reactions: Allergies Allergy/AdvReac Type Severity Reaction Status Date / Time No Known Drug Allergies Allergy Verified 12/31/21 10:30 - Social History Does the pt smoke?: No Smoking Status: Never smoker Does the pt drink ETOH?: No Does the pt have substance abuse?: No - Immunizations Immunizations are current?: Yes PD ED PE NORMAL - Vitals Vital signs reviewed: Yes - General General: Alert and oriented X 3, No acute distress (not in pain at this time. ), Well developed/nourished - Cardiac Cardiac: RRR, No murmur - Respiratory Respiratory: Clear bilaterally - Abdomen Abdomen: Soft, Non tender, Non distended. No: Normal bowel sounds (diminished) - Back Back: Other (some tenderness in thoracolumbar area to palpation. ) - Derm Derm: Normal color, Warm and dry - Extremities Extremities: Normal ROM s pain, No edema, No calf tenderness / cord, Other (good color and cap refill in feet.) - Neuro Neuro: Alert and oriented X 3, No motor deficit, No sensory deficit, Normal speech Results - Vitals Vitals: Vital Signs - 24 hr 01/06/22 13:03 Heart Rate 95 Respiratory 16 Rate Blood Pressure 140/75 H O2 Saturation 93 Oxygen O2 Source Room air - Labs Labs: Laboratory Tests 01/06/22 01/06/22 01/06/22 11:38 11:38 11:38 WBC 10.9 H RBC 3.37 L Hgb 9.9 L Hct 31.0 L MCV 92.0 MCH 29.4 MCHC 31.9 L RDW 13.5 Plt Count 175 MPV 9.9 Neut # (Auto) 9.9 H Lymph # (Auto) 0.5 L [place] # (Auto) 0.4 Eos # (Auto) 0.0 Baso # (Auto) 0.0 Absolute Nucleated RBC 0.00 Nucleated RBC % 0.0 Sodium 143 Potassium 3.4 L Chloride 108 Carbon Dioxide 26 Anion Gap 9.0 BUN 47 H Creatinine 1.2 H Estimated GFR (MDRD) 42 L Glucose 155 H Lactic Acid 1.0 Calcium 9.6 Magnesium 2.3 Total Bilirubin 1.1 H AST 22 ALT 21 Alkaline Phosphatase 63 Total Protein 5.9 L Albumin 2.1 L Globulin 3.8 Albumin/Globulin Ratio 0.6 L Lipase 31 Urine Color Urine Clarity Urine pH Ur Specific Douglas Urine Protein Urine Glucose (UA) Urine Ketones Urine Occult Blood Urine Nitrite Urine Bilirubin Urine Urobilinogen Ur Leukocyte Esterase Urine RBC Urine WBC Urine WBC Clumps Ur Squamous Epith Cells Urine Bacteria Urine Casts Ur Microscopic Review Urine Culture Comments 01/06/22 13:45 WBC RBC Hgb Hct MCV MCH MCHC RDW Plt Count MPV Neut # (Auto) Lymph # (Auto) [place] # (Auto) Eos # (Auto) Baso # (Auto) Absolute Nucleated RBC Nucleated RBC % Sodium Potassium Chloride Carbon Dioxide Anion Gap BUN Creatinine Estimated GFR (MDRD) Glucose Lactic Acid Calcium Magnesium Total Bilirubin AST ALT Alkaline Phosphatase Total Protein Albumin Globulin Albumin/Globulin Ratio Lipase Urine Color DARK YELLOW Urine Clarity CLEAR Urine pH 6.0 Ur Specific Douglas 1.020 Urine Protein 30 H Urine Glucose (UA) NEGATIVE Urine Ketones NEGATIVE Urine Occult Blood NEGATIVE Urine Nitrite NEGATIVE Urine Bilirubin NEGATIVE Urine Urobilinogen 0.2 (NORMAL) Ur Leukocyte Esterase NEGATIVE Urine RBC 0-5 Urine WBC 0-3 Urine WBC Clumps PRESENT Ur Squamous Epith Cells FEW Squamous Urine Bacteria Moderate H Urine Casts 0-2 RBC Casts Ur Microscopic Review INDICATED Urine Culture Comments NOT INDICATED PD MEDICAL DECISION MAKING - ED course Complexity details: reviewed results (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 colitis lower intestine likely ischemic. Lactate and WBC normal and not having abd pain, so does not seem necrotic bowel but likely ischemic. Talked with daughter that these would be significant interventions and she is not sure about it. ), considered differential (still most likely mechanical back pain but does have the abd aortic stenosis, so consider ischemic. CT done which showed likely some ischemic effect on lower intestine, most likely FAB. ), d/w patient, d/w family, d/w sales development consultant (I discussed the plan with Dr. Wiley and he concurred on medication additions and will initiate a palliative care consult.) ED course: May be mechanical back pain. Some indications of ischemic intestine. Daughter not sure of level of intervention. Most likely Palliative care/comfort care. I talked with Dr. Wiley and he will follow up and initiate palliate care. Patient may actually qualify for Hospice Care given the very likely more short term prognosis. Departure - Departure Disposition: 01 Home, Self Care Clinical Impression: Back pain, Stenosis of abdominal aorta, Colitis Condition: Stable Record reviewed to determine appropriate education?: Yes Follow-Up: Salvador Wiley MD [Primary Care Provider] - Prescriptions: Aspirin EC [Ecotrin] 81 mg PO DAILY #30 tablet Lactulose 15 ml PO DAILY #180 ml HYDROcodone/ACET 7.5/325 KATHY [Lortab 7.5/325 Kathy] 8 ml PO BID #160 ml Comments: We will have you continue with the current medications. We will add hydrocodone liquid twice daily to help with the pain. Also lactulose liquid daily to help with constipation. I would also add a baby aspirin daily to help with trying to keep from having total blockage of the stenotic areas in the blood flow through the abdomen. I talked with Dr. Wiley who is in agreement with these medications. He will initiate a palliative care/hospice consult to help with symptom management as well and may allow for onsite providers (these care teams come to the facility periodically). There is a tight blood flow through a couple of the blood vessels in the intestine. This may be causing some cramping type pains and inflammation because of limited flow. Discussed with Dr. Wiley any potential further assessment or interventions but these are rather aggressive interventions given age and scenario. I sent your prescriptions to [facility] pharmacy. I am prescribing a short course of narcotic pain medication for you. These are potentially dangerous and addictive medications that should be used carefully. These medications may constipate you. Take an [id number] stool softener such as docusate twice daily with plenty of water while taking these medications. If you go 24 hours without a bowel movement, take [id number] [id number], per package instructions. Do not drink or drive while taking these medications. If you received narcotic or sedating medications while in the emergency department do not drive for 24 hours. Store this medication in a safe, secure place and out of reach of children. It is a violation of federal law to give or sell this medication to another person or to use in a manner other than prescribed. The ED will not refill narcotic prescriptions, including prescriptions lost or s tolen. You can dispose of unwanted medications at the [facility] office or at several pharmacies such as [facility]. Discharge Date/Time: 01/06/22 17:07
== END 2022-01-06 17:07 | disposition home or self-care (01) ==
LOC: EDUNIT# → ED 10:08
DX: M54.50 Low back pain, unspecified (principal); I35.0 Nonrheumatic aortic (valve) stenosis; K52.9 Noninfective gastroenteritis and colitis, unspecified; I10 Essential (primary) hypertension
CPT/HCPCS: 36415; 74174; 80053; 81001; 83605; 83690; 83735; 85025; 99284; A9270; Q9967; 81003; 87086